=== PATIENT | female | born 1980 | race Caucasian/White ===

== ENCOUNTER 2016-11-16 08:00 | Inpatient (IN) | payer OTHER ==
[2016-11-16] VITALS (15 sets, daily range): BP systolic 105–147; BP diastolic 56–74
[~2016-11-16] VITALS: Ht 175.3 cm; Wt 130.0 kg
[~2016-11-16 08:00] MED LIST: /ACETCOD2T PO; /BUSP5TA; /QUET10TA; ACET50TA PO; ATARAX; ATIV0.5T; BACT800T5 PO; BUSP15TA47 PO; CALC600T57 PO; COLA100C PO; GLYB5TA PO; LATU1TAB PO; OMEP10CASR PO; PRED20TA PO; PRED50TA2 PO; PROZ20CA; QUET20XRTB; SERO150T PO; SEROQUEL; SEROQUEL XR PO; TOPI50TA; TRINTAB11; TRINTAB11 PO; ZYPR5TAB
[2016-11-16] MEDS ORDERED: LACTATED RINGER'S 1000 ML IV STA (08:41)
[2016-11-16] MEDS ORDERED: LR 1,000 ML IV SCH (08:41)
[2016-11-16] MEDS: PRENATAL VITAMIN TAB PO SCH (09:00)
[2016-11-16] MEDS: busPIRone 5 MG TAB PO SCH ×2 (09:00→20:36)
[2016-11-16] MEDS: DOCUSATE SODIUM 100 MG CAP PO SCH ×2 (09:00→20:36)
[2016-11-16] MEDS ORDERED: OXYTOCIN 30 UNITS IN 0.9% NaCl 500ML IV BAG (J2590) As Ordered ONE (09:08)
[2016-11-16 09:10] LABS: MEAN CORPUSCULAR HGB CONC 34.7 g/dl (32.0-36.5); MEAN CORPUSCULAR VOLUME 80.6 fl (80.0-96.0); RED CELL DISTRIBUTION WIDTH 13.9 % (11.5-14.5); WHITE BLOOD COUNT 20.3 K/mm3 (4.0-10.0)
[2016-11-16] MEDS ORDERED: OXYTOCIN DRIP 30 UNITS in APPROPRIATE DILUENT 1 EA IV SCH (09:15)
[2016-11-16] MEDS ORDERED: MEASLES,MUMPS,RUBELLA VACCINE INJ (MMR-II) (90707) SC SCH (09:15)
[2016-11-16] MEDS ORDERED: ANUSOL HC CREAM 30GM TOP PRN (09:15)
[2016-11-16] MEDS ORDERED: DIBUCAINE 1% OINTMENT 30GM TOP PRN (09:15)
[2016-11-16] MEDS ORDERED: RHOGAM 300 MCG (1500 IU) INJ (J2790) IM SCH (09:15)
[2016-11-16] MEDS ORDERED: METHYLERGONOVINE MALEATE 0.2 MG TAB PO PRN (09:15)
[2016-11-16 09:35] LABS: CORD GAS ABE V -5.4; CORD GAS HCO3 V 17.9 MEQ/L; CORD GAS O2 SAT V 74.7 %; CORD GAS PCO2 V 29.5 mmHg; CORD GAS PH V 7.4 UNITS; CORD GAS PO2 V 28.1 mmHg; CORD GAS SBC V 19.5 MEQ/L; CORD GAS TCO2 V 18.8 MEQ/L
[2016-11-16 10:01] LABS: ALBUMIN 2.8 GM/DL (3.2-5.2); ALBUMIN/GLOBULIN RATIO 0.78 (1.00-1.93); ALKALINE PHOSPHATASE 185 U/L (45-117); ALT/SGPT 15 U/L (12-78); ANION GAP 16 MEQ/L (8-16); AST/SGOT 13 U/L (15-37); BILIRUBIN,TOTAL 0.3 MG/DL (0.2-1.0); BLOOD UREA NITROGEN 13 MG/DL (7-18); CARBON DIOXIDE LEVEL 16 MEQ/L (21-32); CHLORIDE LEVEL 106 MEQ/L (98-107); CREATININE FOR GFR 0.79 MG/DL (0.55-1.02); GLOMERULAR FILTRATION RATE > 60.0 (>60); GLUCOSE, FASTING 151 MG/DL (70-105); POTASSIUM SERUM 3.7 MEQ/L (3.5-5.1); SODIUM LEVEL 138 MEQ/L (136-145); TOTAL PROTEIN 6.4 GM/DL (6.4-8.2)
[2016-11-16] MEDS ORDERED: RANI150T PO (12:03)
[2016-11-16] MEDS ORDERED: LATU40TA PO (12:03)
[2016-11-16] MEDS ORDERED: BUSP10TA PO (12:03)
[2016-11-16] MEDS ORDERED: FIBE625T15 PO (12:05)
[2016-11-16] MEDS: glyBURIDE 5 MG TAB PO SCH (14:54)
[2016-11-16] MEDS: IBUPROFEN 800 MG TAB PO PRN (16:59)
--- NOTE | 2016-11-16 17:51 | HPE ---
DATE OF ADMISSION: 11/16/2016 Nina is a 36-year-old female 2, para 1-0-0-1 with an estimated date of confinement (EDC) of 11/28/2016 by a first trimester ultrasound, approximately 38-2/7 weeks gestation who presented to labor and delivery with complaints of contractions every 3-5 minutes. Upon evaluation in labor and delivery, she was found to be in active labor. The patient was 8-9 cm, 100%, fetus at 0 station with a bulging membrane. The patient does have a history of gestational diabetes, currently on glyburide. She does also have a history of bipolar disorder for which she is being seen by Dr. Bolivar, on two antipsychotic medications. Her records reviewed, other than her gestational diabetes essentially unremarkable. The patient is advanced maternal age. LABORATORY DATA: Blood type is A+, rubella immune, hepatitis negative, HIV negative, GC and chlamydia negative. Her GBS was positive. Genetic screening test negative. The patient is a gestational diabetic on glyburide, well-controlled. PAST MEDICAL HISTORY: Significant for bipolar disorder. PAST SURGICAL HISTORY: Loop electrical excision procedure (LEEP) procedure in 2007. SOCIAL HISTORY: The patient is a smoker. She decreased her smoking during this . She denies any alcohol or drug use. REVIEW OF SYSTEMS: Unremarkable. MEDICATIONS: Consist of the BuSpar, Latuda, and vitamins. ALLERGIES: PHENOBARBITAL, QUESTIONABLE PENICILLIN ALLERGY, the patient does not remember any reaction but states that her mother is allergic to penicillin and also a maternal aunt. PHYSICAL EXAMINATION: Obese female in no acute distress, obese, gravid, nontender, nondistended. EXTREMITIES: No clubbing, cyanosis or edema. VAGINAL EXAMINATION: 8-9 cm, 100% effaced, 0 station with bulging membrane, fetus in vertex position. Tracing reviewed, category 1 tracing with contractions every 3-4 minutes. ASSESSMENT: 1. Intrauterine at 38-2/7 weeks gestation in active labor. 2. Group B Streptococcus (GBS) positive. 3. Gestational diabetes, on glyburide. 3. Multiple psychiatric illness, currently under control with medications. PLAN: Admit the patient to labor and delivery. Routine laboratories sent. Penicillin discussed for her group B Streptococcus (GBS) prophylaxis. However, given the rapid nature of her labor, it is doubtful that she will have time to get the antibiotic for her GBS. She will be admitted. Anticipate delivery.
--- NOTE | 2016-11-16 17:52 | DN ---
DATE: 11/16/2016 Nina is a 36-year-old female 2, para 1-0-0-1 who was admitted at 38-2/7 weeks gestation in active labor. She progressed to fully dilated quickly, had artificial rupture of membrane, and soon delivered a live male in left occiput anterior position over an intact perineum. scores 8 and 8. weight 9 pounds, 1 ounce. Placenta delivered spontaneously intact, three-vessel cord. Perineum, vagina and cervix inspected. No laceration noted. Estimated blood loss 300 mL. Both mother and baby in stable condition.
[2016-11-16] MEDS: ACETAMINOPHEN 500 MG TAB PO PRN (21:01)
[2016-11-17 05:34] VITALS: BP 101/62
[2016-11-17] MEDS: IBUPROFEN 800 MG TAB PO PRN ×2 (06:27→19:52)
[2016-11-17 06:58] LABS: MEAN CORPUSCULAR HEMOGLOBIN 27.9 pg (27.0-33.0); MEAN CORPUSCULAR HGB CONC 33.8 g/dl (32.0-36.5); MEAN CORPUSCULAR VOLUME 82.7 fl (80.0-96.0); RED CELL DISTRIBUTION WIDTH 14.6 % (11.5-14.5); WHITE BLOOD COUNT 17.6 K/mm3 (4.0-10.0)
[2016-11-17] MEDS: PRENATAL VITAMIN TAB PO SCH (07:59)
[2016-11-17] MEDS: DOCUSATE SODIUM 100 MG CAP PO SCH ×2 (08:00→21:05)
[2016-11-17] MEDS: glyBURIDE 5 MG TAB PO SCH ×2 (08:00→19:17)
[2016-11-17] MEDS: busPIRone 5 MG TAB PO SCH ×2 (08:00→21:05)
[2016-11-17] MEDS ORDERED: LURASIDONE HCL 40 MG TAB (LATUDA) PO SCH (08:00)
[2016-11-17 18:05] VITALS: BP 139/79
[2016-11-18] MEDS: ACETAMINOPHEN 500 MG TAB PO PRN (03:39)
[2016-11-18 04:31] VITALS: BP 117/71
[2016-11-18 05:56] VITALS: BP 114/64
[2016-11-18] MEDS: DOCUSATE SODIUM 100 MG CAP PO SCH (07:48)
[2016-11-18] MEDS: busPIRone 5 MG TAB PO SCH (07:48)
[2016-11-18] MEDS: PRENATAL VITAMIN TAB PO SCH (07:48)
[2016-11-18] MEDS ORDERED: PRENTAB9 PO (10:19)
[2016-11-18] MEDS ORDERED: IBUP-1114 PO (10:19)
[2016-11-18] MEDS ORDERED: ACET50TA PO (10:19)
== END 2016-11-18 13:15 | disposition home or self-care (01) | DRG 560 ==
LOC: M LDO 08:00 → M LDI 08:20 → M OBS 13:13
PROVIDERS: ADMIT Obstetrics & Gynecology; ATTEND Obstetrics & Gynecology
PROC: 10E0XZZ Delivery of Products of Conception, External Approach (ICD-10-PCS; principal; 2016-11-16)
PROC: 10907ZC Drainage of Amniotic Fluid, Therapeutic from Products of Conception, Via Natural or Artificial Opening (ICD-10-PCS; 2016-11-16)
DX: O24.415 Gestational diabetes mellitus in pregnancy, controlled by oral hypoglycemic drugs (principal); O99.344 Other mental disorders complicating childbirth; F31.9 Bipolar disorder, unspecified; Z37.0 Single live birth; Z3A.38 38 weeks gestation of pregnancy; F17.200 Nicotine dependence, unspecified, uncomplicated; O99.334 Smoking (tobacco) complicating childbirth; O99.824 Streptococcus B carrier state complicating childbirth; Z79.84 Long term (current) use of oral hypoglycemic drugs; Z88.0 Allergy status to penicillin; Z88.8 Allergy status to other drugs, medicaments and biological substances; Z79.899 Other long term (current) drug therapy

== ENCOUNTER 2016-11-23 21:55 | Inpatient (IN) | payer MEDICAID, OTHER ==
[~2016-11-23] VITALS: Ht 175.3 cm; Wt 130.3 kg
[~2016-11-23 21:55] MED LIST changes: +BUSP10TA PO; +FIBE625T15 PO; +IBUP-1114 PO; +LATU40TA PO; +PRENTAB9 PO; +RANI150T PO
[2016-11-23 22:38] LABS: MEAN CORPUSCULAR HGB CONC 34.6 g/dl (32.0-36.5); MEAN CORPUSCULAR VOLUME 83.8 fl (80.0-96.0); RED CELL DISTRIBUTION WIDTH 13.9 % (11.5-14.5); WHITE BLOOD COUNT 13.8 K/mm3 (4.0-10.0)
[2016-11-23 22:53] LABS: CONTROL LINE HCG INT CTR LINE PRESENT
[2016-11-23 23:00] LABS: AMPHETAMINES LEVEL URINE NEGATIVE (NEGATIVE); BENZODIAZEPINES URINE NEGATIVE (NEGATIVE); COCAINE METABOLITE URINE NEGATIVE (NEGATIVE); CONTROL LINE INT CTR LINE PRESENT; METHADONE URINE NEGATIVE (NEGATIVE); OPIATES URINE NEGATIVE (NEGATIVE); TRICYCLIC ANTIDEPRESS URINE NEGATIVE (NEGATIVE)
[2016-11-23 23:09] LABS: ALBUMIN 3.1 GM/DL (3.2-5.2); ALKALINE PHOSPHATASE 121 U/L (45-117); ALT/SGPT 31 U/L (12-78); ANION GAP 9 MEQ/L (8-16); AST/SGOT 22 U/L (15-37); BILIRUBIN,DIRECT < 0.1 MG/DL (0.0-0.2); BILIRUBIN,TOTAL 0.2 MG/DL (0.2-1.0); BLOOD UREA NITROGEN 19 MG/DL (7-18); CALCIUM LEVEL 9.4 MG/DL (8.5-10.1); CARBON DIOXIDE LEVEL 27 MEQ/L (21-32); CHLORIDE LEVEL 108 MEQ/L (98-107); CREATININE FOR GFR 0.76 MG/DL (0.55-1.02); GLOMERULAR FILTRATION RATE > 60.0 (>60); GLUCOSE, FASTING 93 MG/DL (70-105); POTASSIUM SERUM 3.7 MEQ/L (3.5-5.1); SODIUM LEVEL 144 MEQ/L (136-145); TOTAL PROTEIN 6.2 GM/DL (6.4-8.2)
[2016-11-23] MEDS ORDERED: LORazepam 1 MG TAB As Ordered ONE (23:22)
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
--- NOTE | 2016-11-24 00:01 | EDDOCDS ---
Physician Documentation [facility] Name: Nina Bartlett Age: 36 yrs Sex: Female : 1980 Arrival Date: 11/23/2016 Time: 21:55 Bed BHU1 Private MD: Marcos Huston Disposition: 11/23/16 23:42 Hospitalization ordered by Sami Echeverria for Inpatient Admission. Preliminary diagnosis is Bipolar disorder, current episode manic severe with psychotic features. - Bed requested for Admit. - Status is Inpatient Admission. slm - Condition is Stable. - Problem is new. - Symptoms are unchanged. Historical: - Allergies: PENICILLINS; Percocet; Phenobarbital; Latex; - Home Meds: 1. BuSpar 15 mg Oral tab 1 tab 2 times per day 2. Latuda 60 mg oral tab 3. trazodone 50 mg Oral tab nightly - PMHx: Anxiety; Bipolar disorder; Depression; - PSHx: LEEP Procedure; - Social history: Smoking status: Patient uses tobacco products, heavy tobacco smoker. No barriers to communication noted. - Family history: Not pertinent. - : The pt / caregiver states he / she is not on anticoagulants. Home medication list is obtained from the patient. - Exposure Risk Screening:: None identified. 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 9 in. (175.26 cm) (R); 23:17 BP 147 / 78; Pulse 90; Resp 18; Pulse Ox 100% on R/A; jlm 21:56 Body Mass Index 43.42 (133.36 kg, 175.26 cm) ct3 MDM: 22:10 Consult PFS/PSA/Complaint Specialist ordered. br1 22:10 Consult PFS/PSA/Complaint Specialist: Patient's case requires discussion with on-call br1 Psychiatrist ordered. 22:10 PSA/PFS to call Nursing It Admin, to enter patient data on [place] Safe Act if patient br1 involuntarily admitted or transferred for SI or HI ordered. 22:10 Confirm accurate psychiatric medication list and times of last dosage ordered. br1 22:10 Detain Pt Until Medically/PFS Cleared ordered. br1 22:10 Acetaminophen Level Ordered. EDMS 22:10 Basic Metabolic Profile Ordered. EDMS 22:10 Complete Blood Count Ordered. EDMS 22:10 Drug Eval Toxicology ED Only Ordered. EDMS 22:10 Ethyl Alcohol (ethanol) Ordered. EDMS 22:10 HCG,Serum Qualitative Ordered. EDMS 22:10 Liver Profile Ordered. EDMS 22:10 Salicylate Level Ordered. EDMS 22:10 Thyroid Stimulating Hormone Ordered. EDMS 22:33 Financial registration complete. zo 22:35 [facility] [place] Agreement was scanned into [employer]: [employer] and attached to record. zo 22:41 Complete Blood Count Reviewed. br1 22:59 HCG,Serum Qualitative Reviewed. br1 23:08 Drug Eval Toxicology ED Only Reviewed. br1 23:10 Acetaminophen Level Reviewed. br1 23:10 Basic Metabolic Profile Reviewed. br1 23:10 HCG,Serum Qualitative Reviewed. br1 23:10 Liver Profile Reviewed. br1 23:10 Salicylate Level Reviewed. br1 23:10 Ethyl Alcohol (ethanol) Reviewed. br1 23:10 Thyroid Stimulating Hormone Reviewed. br1 23:18 Consult PFS/PSA/Complaint Specialist complete. cl 23:18 Consult PFS/PSA/Complaint Specialist: Patient's case requires discussion with on-call cl Psychiatrist complete. 23:18 PSA/PFS to call Nursing It Admin, to enter patient data [place] Safe [place] if patient cl involuntarily admitted or transferred for SI or HI complete. 23:18 [facility] ordered. br1 23:20 LORazepam 1 mg PO once; prn anxiety ordered. br1 23:21 Consult PFS/PSA/Socail Worker: Cleared medically for eval ordered. br1 23:23 Consult PFS/PSA/Socail Worker: Cleared medically for eval complete. cl 23:51 Admit to IM: ordered. EDMS 23:51 [facility] Legal paperwork was scanned into [employer]: [employer] and attached to record. cl Administered Medications: 23:32 Drug: LORazepam 1 mg [lorazepam 1 mg tablet (1 tabs)] Route: PO; slm Signatures: Dispatcher [employer] EDMS Adam Saini, PSA PSA cl Wilfrido Young Brian, MD MD br1 Jami Oakley RN RN [facility] Rosa M Ramires LPN LPN slm The chart was reviewed and I authenticate all verbal orders and agree with the evaluation and treatment provided.Attachments: 22:35 [facility] Payment Agreement zo MTDD
[2016-11-24] MEDS ORDERED: MOM 30ML SUSPENSION UDC PO PRN (00:45)
[2016-11-24] MEDS ORDERED: MAALOX 30 ML SUSP *UDC PO PRN (00:45)
[2016-11-24 01:41] VITALS: BP 151/94
[2016-11-24 06:32] VITALS: BP 117/55
[2016-11-24] MEDS ORDERED: BUSP15TA47 PO (06:58)
[2016-11-24] MEDS ORDERED: FIBE625T PO (06:58)
[2016-11-24] MEDS ORDERED: LATU1TAB PO (06:58)
[2016-11-24] MEDS ORDERED: ALEV220T26 PO (06:58)
[2016-11-24] MEDS ORDERED: CALC1TAB30 PO (06:58)
[2016-11-24] MEDS: LORazepam 1 MG TAB PO PRN ×3 (08:26→20:36)
[2016-11-24] MEDS ORDERED: TRAZ50TA4 PO (09:01)
[2016-11-24] MEDS ORDERED: RANI150T PO (09:02)
[2016-11-24] MEDS ORDERED: BUSP10TA PO (09:03)
--- NOTE | 2016-11-24 11:28 | HPEPDOC ---
Medical History and Physical Date of Admission Nov 24, 2016 at 00:05 History and Physical PCP: Marcos Huston NP. ATTENDING: Dr. Omer Ignacio HPI: 36yoF admitted to [facility] for Bipolar disorder, being medically examined today. Patient is reporting a rash on her hands bilaterally which has developed over the past few days. She states she noticed irritation in her hands therefore she applied Nuskin. She states this was not helpful and the area is still irritated and subsequently the covering began to crack. She does state that she washes her hands frequently and had been applying hand cq developer frequently as well. After this her hands developed a rash, they began to feel dry and become red and inflamed. She also complains of low back pain this is occurring across her low back and has been very tender to touch. It is not radiating down her lower stomach remedies. She does not report weakness, numbness, or tingling in lower extremities. No loss of bowel or bladder control. She is reporting some right hip pain. She has been ambulating without any difficulty. No assistive devices. She has not been using anything specific for pain. She lies down to rest. Activity seems to make the pain worse. She does not report neck pain. No weakness, numbness, or tingling in upper extremities. She states she typically does use Aleve at home for back pain, knee pain, or hip pain which occurs sporadically. Denies any fevers, chills, weakness, fatigue, JAY, CP, SOB, cough, palpitations , abdominal pain, N/V/D or changes in bowel or bladder habits. PMHx: Bipolar disorder Anxiety Depression History of back pain Knee pain Hip pain Chronic varicose veins/lower extremity edema Obesity-BMI 43.4 Tobacco use PSHX: LEEP procedure Eye surgery as child SOCHX: Resides in: [place] Marital Status: Single Kids: 2, 1 stepchild Employment: Unemployed Tobacco use: One pack per day ETOH: Denies Illicit Drugs: Marijuana once yearly IV Drug Use: Denies Tattoos done unprofessionally: Denies FAMHX: Mother: Alive, history of lung cancer Father: Alive, COPD Siblings: One brother Alive, unknown Children: Alive, well Unexpected deaths due to medical reasons: None. ROS: As noted in HPI, otherwise 11pt ROS of systems reviewed and remarkable only for LMP absent, recent of child 11/16/16. Patient states she is not breast- feeding. PE: GEN: 36 yoF, appears stated age. Well-nourished, well developed. No acute distress. Alert and oriented x 3. Patient becomes agitated at times and is reluctant to provide history. HEENT: Normocephalic, atraumatic. Pupils are equal, round, and reactive to light. Extraocular movements are intact. No nystagmus appreciated. Sclera are nonicteric. Conjunctiva without injection. Nose midline. Nasal turbinates without bogginess. EACs both patent BL. TMs both visualized and richter with good cone of light, no bulging or erythema. No facial asymmetry. Moist mucous membranes. Dentition fair. Pharynx pink and moist, no cobblestoning. Neck supple , trachea midline. No lymphadenopathy or thyromegaly appreciated. CHEST: Regular rate and rhythm, +S1, +S2 LUNGS: Clear to auscultation bilaterally. No wheezes, rales, or rhonchi. Breathing appears symmetric and easy. Patient is speaking in full sentences. No accessory muscle use. ABD: Round, soft, non-tender, non-distended. +Bowel sounds throughout. No rebound or guarding. No costovertebral angle tenderness. EXT: Pulses 2+ bilaterally dorsalis pedis and radial. trace lower extremity edema appreciated, varicose veins noted B/L. SKIN: [place], dry, warm. Capillary refill <2sec. No rashes. NEURO: Alert and oriented x 3. Cranial nerves III-XII are intact. No focal deficits appreciated. EKG: Pending. A&P: 36yoF admitted to [facility] for Bipolar disorder 1. Psych. Plan per Psychiatry. Obtain baseline EKG to assure the safety of psychiatric medications as they can prolong the QT interval. 2. Nicotine dependence. Patch available. 3. Chronic low back pain/right hip pain. Continue Tylenol as needed. Check x- ray of right hip and lumbosacral spine. 4. Follow up with PCP on discharge. Cyndee Huston NP. 5. Allergic dermatitis of the hands bilaterally. Likely related to frequent handwashing and application of hand cq developer. Avoid harsh soaps and sanitizers. Avoid picking of Nuskin which patient has applied to her skin. Wash hands with warm water and mild soap if needed. Apply triamcinolone cream twice a day. 6. Leukocytosis. Recheck CBC. Also check UA/UC. 7. Chronic venous insufficiency. Elevate legs as needed. 8. Obesity. Complicates care. BMI is noted to be 43.4. 9. Staff member was present throughout exam, Echo VEGA. Vital Signs Vital Signs Label Value Date Time Patient Temperature 97.2 degrees F 11/24/16 0632 Temperature Source Tympanic 11/24/16 0632 Pulse 71 11/24/16 0632 Respiratory Rate 19 bpm 11/24/16 0632 Blood Pressure Assessment 117/55 (75) 11/24/16 0632 Laboratory Data Labs 24H Laboratory Tests 2 11/23/16 22:25: Acetaminophen Level < 2.0L, Aspartate Amino Transf (AST/SGOT) 22, Alanine Aminotransferase (ALT/SGPT) 31, Alkaline Phosphatase 121H, Total Bilirubin 0.2, Direct Bilirubin < 0.1, Albumin 3.1L, Albumin/Globulin Ratio 1.00, Anion Gap 9, Calcium Level 9.4, Ethyl Alcohol Level < 0.003, Glomerular Filtration Rate > 60.0, Human Chorionic Gonadotropin, Qual POSITIVEA, Salicylates Level 3.3L, Thyroid Stimulating Hormone (TSH) 1.460, Total Protein 6.2L 11/23/16 22:29: Urine Amphetamine Level NEGATIVE, Urine Benzodiazepines Screen NEGATIVE, Urine Cannabinoids NEGATIVE, Urine Cocaine Metabolite NEGATIVE, Urine Opiates Screen NEGATIVE, Urine Barbiturates, Qualitative NEGATIVE, Urine Methadone Screen NEGATIVE, Urine Tricyclic Antidepressants NEGATIVE CBC/BMP Laboratory Tests 11/23/16 22:25 Red Blood Count 4.71, Mean Corpuscular Volume 83.8, Mean Corpuscular Hemoglobin 29.0, Mean Corpuscular Hemoglobin Concent 34.6, Red Cell Distribution Width 13.9 Home Medications Scheduled (Calcium 500+D 500-200 mg-Unit) 1 Tab Tab 1 TAB PO DAILY VITAMIN DEFICIENCY Buspirone HCl (Buspirone HCl) 10 Mg Tab 20 MG PO BID ANXIETY Calcium Polycarbophil (Fibercon) 625 Mg Tab 625 MG PO BID BOWEL CARE Lurasidone Hydrochloride (Latuda) 60 Mg Tab 60 MG PO DAILY BIPOLAR DISORDER Scheduled PRN Naproxen Sodium (Aleve) 220 Mg Tab 220 MG PO BID PRN PRN PAIN Ranitidine HCl (Ranitidine HCl) 150 Mg Tab 1 TAB PO BID PRN PRN HEARTBURN Trazodone HCl (Trazodone HCl) 50 Mg Tab 50 MG PO QHS PRN PRN INSOMNIA Allergies Coded Allergies: Acetaminophen (Verified Allergy, Unknown, 11/24/16) Latex (Verified Allergy, Unknown, 11/24/16) Oxycodone (Verified Allergy, Unknown, 11/24/16) Penicillins (Verified Allergy, Unknown, 02/18/13) Penicillins Cross Reactors (Verified Allergy, Unknown, 02/18/13) Phenobarbital (Verified Allergy, Unknown, 02/18/13) Procaine (Verified Allergy, Unknown, 11/16/16) Jennifer Garcia Nov 24, 2016 11:28
[2016-11-24 12:00] VITALS: BP 126/71
[2016-11-24] MEDS: TRIAMCINOLONE ACETONIDE 0.025 % 80 GM CREAM TOP SCH ×2 (12:39→20:37)
--- NOTE | 2016-11-24 17:28 | ECGEPIP ---
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
[2016-11-24] MEDS ORDERED: LURASIDONE HCL 40 MG TAB (LATUDA) PO SCH ×5 (18:00→21:00)
[2016-11-24] MEDS: LURASIDONE 20 MG TAB (LATUDA) PO SCH (18:25)
[2016-11-24] MEDS: busPIRone 5 MG TAB PO SCH (20:36)
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
[2016-11-24] MEDS: traZODone 50 MG TAB PO PRN (23:04)
[2016-11-25 06:16] VITALS: BP 128/77
[2016-11-25 06:58] LABS: MEAN CORPUSCULAR HEMOGLOBIN 27.9 pg (27.0-33.0); MEAN CORPUSCULAR HGB CONC 33.1 g/dl (32.0-36.5); MEAN CORPUSCULAR VOLUME 84.2 fl (80.0-96.0); RED CELL DISTRIBUTION WIDTH 13.7 % (11.5-14.5); WHITE BLOOD COUNT 10.9 K/mm3 (4.0-10.0)
[2016-11-25] MEDS: busPIRone 5 MG TAB PO SCH ×2 (08:07→21:56)
[2016-11-25] MEDS: TRIAMCINOLONE ACETONIDE 0.025 % 80 GM CREAM TOP SCH ×2 (08:07→21:56)
[2016-11-25] MEDS: NICOTINE 14 MG/24 HR TRANSDERMAL TD SCH (08:08)
[2016-11-25] MEDS: LORazepam 1 MG TAB PO PRN ×2 (10:32→19:03)
--- NOTE | 2016-11-25 12:19 | IPN ---
DATE OF SERVICE: 11/25/2016 TREATMENT: This is the second day of inpatient admission for this 36-year-old woman who was admitted with a diagnosis of unspecified bipolar disorder and is being treated with a combination of lurasidone 60 mg orally at bedtime and BuSpar 15 mg orally twice daily. She reports today that while speaking with her on the telephone she had heard her 8-days-old baby crying in the background and since that time, she has been depressed and feels frustrated being in here. She expresses the wish to have the baby brought here so she can hold and hug the baby. She indicates she will have a hard time adjusting to current setting knowing that her is at home without her. No reported medication side effects. OBSERVATION: Vital signs: Blood pressure 128/77, pulse 107, respiration 20, and temperature 97.6. She is adequately groomed, dressed in [facility]. Relates conversationally. No medication related adverse event evident. Thought process is coherent. No delusions or ideas of reference. She denies hallucination. Her mood is depressed. Affect teary. She denies active thoughts of suicide or homicide. ASSESSMENT: Patient is currently experiencing maternal mood symptomatology and will require for inpatient stabilization. PLAN: She will continue on current treatment with ongoing reviews and supportive therapy. FUAD
[2016-11-25] MEDS: ACETAMINOPHEN TAB 650MG DOSE (2X325MG) PO PRN ×2 (13:27→23:38)
[2016-11-25 18:00] VITALS: BP 135/85
[2016-11-25] MEDS: LURASIDONE 20 MG TAB (LATUDA) PO SCH (18:12)
[2016-11-25] MEDS: traZODone 50 MG TAB PO PRN (21:56)
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
--- NOTE | 2016-11-26 01:01 | EDDOCDS ---
Physician Documentation [facility] Name: Nina Bartlett Age: 36 yrs Sex: Female : 1980 Arrival Date: 11/23/2016 Time: 21:55 Bed [facility]1 Private MD: Marcos Huston Disposition: 11/23/16 23:42 Hospitalization ordered by Sami Echeverria for Inpatient Admission. Preliminary diagnosis is Bipolar disorder, current episode manic severe with psychotic features. - Bed requested for Admit. - Status is Inpatient Admission. slm - Condition is Stable. - Problem is new. - Symptoms are unchanged. Historical: - Allergies: PENICILLINS; Percocet; Phenobarbital; Latex; - Home Meds: 1. BuSpar 15 mg Oral tab 1 tab 2 times per day 2. Latuda 60 mg oral tab 3. trazodone 50 mg Oral tab nightly - PMHx: Anxiety; Bipolar disorder; Depression; - PSHx: LEEP Procedure; - Social history: Smoking status: Patient uses tobacco products, heavy tobacco smoker. No barriers to communication noted. - Family history: Not pertinent. - : The pt / caregiver states he / she is not on anticoagulants. Home medication list is obtained from the patient. - Exposure Risk Screening:: None identified. 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 9 in. (175.26 cm) (R); 23:17 BP 147 / 78; Pulse 90; Resp 18; Pulse Ox 100% on R/A; jlm 21:56 Body Mass Index 43.42 (133.36 kg, 175.26 cm) ct3 MDM: 22:10 Consult PFS/PSA/Books Salesperson ordered. br1 22:10 Consult PFS/PSA/Books Salesperson: Patient's case requires discussion with on-call br1 Psychiatrist ordered. 22:10 PSA/PFS to call Nursing Animal Eviscerator, to enter patient data on [place] Safe Act if patient br1 involuntarily admitted or transferred for SI or HI ordered. 22:10 Confirm accurate psychiatric medication list and times of last dosage ordered. br1 22:10 Detain Pt Until Medically/PFS Cleared ordered. br1 22:10 Acetaminophen Level Ordered. EDMS 22:10 Basic Metabolic Profile Ordered. EDMS 22:10 Complete Blood Count Ordered. EDMS 22:10 Drug Eval Toxicology ED Only Ordered. EDMS 22:10 Ethyl Alcohol (ethanol) Ordered. EDMS 22:10 HCG,Serum Qualitative Ordered. EDMS 22:10 Liver Profile Ordered. EDMS 22:10 Salicylate Level Ordered. EDMS 22:10 Thyroid Stimulating Hormone Ordered. EDMS 22:33 Financial registration complete. zo 22:35 [facility] Payment Agreement was scanned into Yoomly and attached to record. zo 22:41 Complete Blood Count Reviewed. br1 22:59 HCG,Serum Qualitative Reviewed. br1 23:08 Drug Eval Toxicology ED Only Reviewed. br1 23:10 Acetaminophen Level Reviewed. br1 23:10 Basic Metabolic Profile Reviewed. br1 23:10 HCG,Serum Qualitative Reviewed. br1 23:10 Liver Profile Reviewed. br1 23:10 Salicylate Level Reviewed. br1 23:10 Ethyl Alcohol (ethanol) Reviewed. br1 23:10 Thyroid Stimulating Hormone Reviewed. br1 23:18 Consult PFS/PSA/Books Salesperson complete. cl 23:18 Consult PFS/PSA/Books Salesperson: Patient's case requires discussion with on-call cl Psychiatrist complete. 23:18 PSA/PFS to call Nursing Animal Eviscerator, to enter patient data [place] Safe [place] if patient cl involuntarily admitted or transferred for SI or HI complete. 23:18 [facility] Nursing Order ordered. br1 23:20 LORazepam 1 mg PO once; prn anxiety ordered. br1 23:21 Consult PFS/PSA/Socail Worker: Cleared medically for eval ordered. br1 23:23 Consult PFS/PSA/Socail Worker: Cleared medically for eval complete. cl 23:51 Admit to IM: ordered. EDMS 23:51 [facility] Legal paperwork was scanned into Yoomly and attached to record. cl 11/24 11:08 T-Sheet-- Draft Copy was scanned into Yoomly and attached to record. gb Administered Medications: 11/23 23:32 Drug: LORazepam 1 mg [lorazepam 1 mg tablet (1 tabs)] Route: PO; slm Signatures: Dispatcher [employer] EDMS Adam Saini, PSA PSA cl Yaquelin Virk, Reg Reg gb Wilfrido Young Brian, MD MD br1 Jami Oakley RN RN [facility] Rosa M Ramires LPN LPN slm The chart was reviewed and I authenticate all verbal orders and agree with the evaluation and treatment provided.Attachments: 22:35 [facility] Payment Agreement zo 11/24 11:08 T-Sheet-- Draft Copy gb Chart Complete MTDD
--- NOTE | 2016-11-26 01:01 | EDDOCDS ---
Physician Documentation [facility] Name: Nina Bartlett Age: 36 yrs Sex: Female : 1980 Arrival Date: 11/23/2016 Time: 21:55 Bed BHU1 Private MD: Marcos Huston Disposition: 11/23/16 23:42 Hospitalization ordered by Sami Echeverria for Inpatient Admission. Preliminary diagnosis is Bipolar disorder, current episode manic severe with psychotic features. - Bed requested for Admit. - Status is Inpatient Admission. slm - Condition is Stable. - Problem is new. - Symptoms are unchanged. Historical: - Allergies: PENICILLINS; Percocet; Phenobarbital; Latex; - Home Meds: 1. BuSpar 15 mg Oral tab 1 tab 2 times per day 2. Latuda 60 mg oral tab 3. trazodone 50 mg Oral tab nightly - PMHx: Anxiety; Bipolar disorder; Depression; - PSHx: LEEP Procedure; - Social history: Smoking status: Patient uses tobacco products, heavy tobacco smoker. No barriers to communication noted. - Family history: Not pertinent. - : The pt / caregiver states he / she is not on anticoagulants. Home medication list is obtained from the patient. - Exposure Risk Screening:: None identified. HOSIERY MENDER: 11/23 22:14 LMP N/A - Recent [facility] Vital Signs: 21:56 BP 152 / 95; Pulse 112; Resp 18; Temp 98.1; Pulse Ox 98% on R/A; Weight 133.36 kg / ct3 294.01 lbs (R); Height 5 ft. 9 in. (175.26 cm) (R); 23:17 BP 147 / 78; Pulse 90; Resp 18; Pulse Ox 100% on R/A; jlm 21:56 Body Mass Index 43.42 (133.36 kg, 175.26 cm) ct3 MDM: 22:10 Consult PFS/PSA/Aviation Electrical Technician ordered. br1 22:10 Consult PFS/PSA/Aviation Electrical Technician: Patient's case requires discussion with on-call br1 Psychiatrist ordered. 22:10 PSA/PFS to call Nursing Build And Release Manager, to enter patient data on [place] Safe Act if patient br1 involuntarily admitted or transferred for SI or HI ordered. 22:10 Confirm accurate psychiatric medication list and times of last dosage ordered. br1 22:10 Detain Pt Until Medically/PFS Cleared ordered. br1 22:10 Acetaminophen Level Ordered. EDMS 22:10 Basic Metabolic Profile Ordered. EDMS 22:10 Complete Blood Count Ordered. EDMS 22:10 Drug Eval Toxicology ED Only Ordered. EDMS 22:10 Ethyl Alcohol (ethanol) Ordered. EDMS 22:10 HCG,Serum Qualitative Ordered. EDMS 22:10 Liver Profile Ordered. EDMS 22:10 Salicylate Level Ordered. EDMS 22:10 Thyroid Stimulating Hormone Ordered. EDMS 22:33 Financial registration complete. zo 22:35 [facility] Payment Agreement was scanned into [employer] and attached to record. zo 22:41 Complete Blood Count Reviewed. br1 22:59 HCG,Serum Qualitative Reviewed. br1 23:08 Drug Eval Toxicology ED Only Reviewed. br1 23:10 Acetaminophen Level Reviewed. br1 23:10 Basic Metabolic Profile Reviewed. br1 23:10 HCG,Serum Qualitative Reviewed. br1 23:10 Liver Profile Reviewed. br1 23:10 Salicylate Level Reviewed. br1 23:10 Ethyl Alcohol (ethanol) Reviewed. br1 23:10 Thyroid Stimulating Hormone Reviewed. br1 23:18 Consult PFS/PSA/Aviation Electrical Technician complete. cl 23:18 Consult PFS/PSA/Aviation Electrical Technician: Patient's case requires discussion with on-call cl Psychiatrist complete. 23:18 PSA/PFS to call Nursing Build And Release Manager, to enter patient data on [place] Safe [place] if patient cl involuntarily admitted or transferred for SI or HI complete. 23:18 [facility] [place]. br1 23:20 LORazepam 1 mg PO once; prn anxiety ordered. br1 23:21 Consult PFS/PSA/Socail Worker: Cleared medically for eval ordered. br1 23:23 Consult PFS/PSA/Socail Worker: Cleared medically for eval complete. cl 23:51 Admit to IM: ordered. EDMS 23:51 [facility] Legal paperwork was scanned into [employer] and attached to record. cl 11/24 11:08 T-Sheet-- Draft Copy was scanned into [employer] and attached to record. gb Administered Medications: 11/23 23:32 Drug: LORazepam 1 mg [lorazepam 1 mg tablet (1 tabs)] Route: PO; slm Signatures: Dispatcher [employer] EDMS Adam Saini, PSA PSA cl Yaquelin Virk, Reg Reg gb Wilfrido Young Brian, MD MD br1 Jami Oakley RN RN [facility] Rosa M Ramires LPN LPN slm The chart was reviewed and I authenticate all verbal orders and agree with the evaluation and treatment provided.Attachments: 22:35 [facility] Payment Agreement zo 11/24 11:08 T-Sheet-- Draft Copy gb Chart Complete MTDD
[2016-11-26 06:08] VITALS: BP 131/83
[2016-11-26] MEDS: ACETAMINOPHEN TAB 650MG DOSE (2X325MG) PO PRN ×2 (08:05→15:46)
[2016-11-26] MEDS: busPIRone 5 MG TAB PO SCH ×2 (08:06→20:30)
[2016-11-26] MEDS: TRIAMCINOLONE ACETONIDE 0.025 % 80 GM CREAM TOP SCH ×2 (08:06→20:30)
[2016-11-26] MEDS: NICOTINE 14 MG/24 HR TRANSDERMAL TD SCH (08:06)
[2016-11-26] MEDS: LORazepam 1 MG TAB PO PRN ×2 (10:11→22:54)
--- NOTE | 2016-11-26 11:26 | IPN ---
DATE: 11/26/2016 TREATMENT: Day #3 of inpatient hospitalization. The patient is currently being prescribed lurasidone 60 mg orally at bedtime and BuSpar 50 mg orally twice daily for management of mood and manic and anxiety-related disturbances respectively. She has been taking her medication and no new problems reported today, except for bilateral pedal swelling. She already has been seen by the medical physician assistant case manager and compression stockings were ordered. OBSERVATION: Her vital signs are stable. She is calm, cooperative, appropriately dressed and groomed. Her speech is fluent. Thought process is coherent. No evidence of psychosis. Her mood is described as still depressed; however, she denies suicidal thoughts, plan or intent. ASSESSMENT: Patient is adjusting well to current setting; however, she continues to experience some depressive symptoms and will require further inpatient stabilization. PLAN: She will continue the current treatment with ongoing assessment and supportive therapy. FUAD
--- NOTE | 2016-11-26 11:37 | IPNPDOC ---
Date of Service/Time Nov 23, 2016 at 21:55 Progress Note SUBJECTIVE: 36yoF admitted to [facility] for Bipolar disorder, I was requested to evaluate the patient today related to lower extremity edema. She is known to have chronic venous insufficiency and varicose veins. She reports she sometimes uses FOSTER stockings at home but has been unable to use them here. She has had some discomfort in her right lower extremity. She has been trying to elevate her legs. She has not noted any erythema. She is also complaining of dental pain related to a chipped tooth on the left upper side. She states this has been worsening since the of her child. She had trouble with her teeth during her as well. She has an appointment with her dentist in approximately 1 week to have this addressed. She has been trying to get by until her dental appointment. It has been increasing in pain. The pain is throbbing. It is radiating up her left cheek. OBJECTIVE: GEN: 36 yoF, appears stated age. Well-nourished, well developed. No acute distress. Alert and oriented x 3. HEENT: Normocephalic, atraumatic. Pupils are equal, round, and reactive to light. Extraocular movements are intact. No nystagmus appreciated. Sclera are nonicteric. Conjunctiva without injection. Nose midline. Nasal turbinates without bogginess. EACs both patent BL. TMs both visualized and richter with good cone of light, no bulging or erythema. No facial asymmetry. Moist mucous membranes. Dentition: the left cuspid appears to have cracking posteriorly with erythema and tenderness with palpation noted. Pharynx pink and moist, no cobblestoning. Neck supple, trachea midline. No lymphadenopathy or thyromegaly appreciated. CHEST: Regular rate and rhythm, +S1, +S2 LUNGS: Clear to auscultation bilaterally. No wheezes, rales, or rhonchi. Breathing appears symmetric and easy. Patient is speaking in full sentences. No accessory muscle use. ABD: Round, soft, non-tender, non-distended. +Bowel sounds throughout. No rebound or guarding. No costovertebral angle tenderness. EXT: Pulses 2+ bilaterally dorsalis pedis and radial. trace lower extremity edema appreciated, varicose veins noted B/L. There is mild TTP RLE calf area but no cording, neg Homans, no erythema. No TTP LLE, no calf TTP, No cording, neg Irma's. SKIN: [place], dry, warm. Capillary refill <2sec. No rashes. NEURO: Alert and oriented x 3. Cranial nerves III-XII are intact. No focal deficits appreciated. DVT prophylaxis ordered: Ambulatory ASSESSMENT AND PLAN: 36yoF admitted to [facility] for Bipolar disorder. PROBLEMS: 36yoF admitted to [facility] for Bipolar disorder 1. Psych. Plan per Psychiatry. EKG on file. 2. Nicotine dependence. Patch available. 3. Chronic low back pain/right hip pain. Continue Tylenol as needed. Naproxen 250 mg twice a day as needed. She states this works the best for her pain. X- ray of right hip and lumbosacral spine previously requested was canceled. 4. Follow up with PCP on discharge. Cyndee Huston NP. 5. Allergic dermatitis of the hands bilaterally. Likely related to frequent handwashing and application of hand exhibit artist prior to admission. Continue to avoid harsh soaps and sanitizers. Avoid picking of [place] which patient has applied to her skin. Wash hands with warm water and mild soap if needed. Apply triamcinolone cream twice a day. This is improving. 6. Chronic venous insufficiency. Elevate legs as needed. Apply TEDS to lower extremities. Low-sodium diet. Check ultrasound of lower extremities. 7. Obesity. Complicates care. BMI is noted to be 43.4. 8. Dental pain/Dental infection. Patient with penicillin allergy. Continue Tylenol as needed. Naproxen 250 mg twice a day as needed. Add clindamycin 300 mg every 8 hours. Keep appointment for follow-up with her dentist at discharge. DISPOSITION: As per psychiatry. VS, I&O, 24H, Fishbone VS, I&O, 24H, Fishbone Vital Signs Date Time Temp Pulse Resp B/P Pulse Ox O2 Delivery O2 Flow Rate FiO2 11/26/16 06:08 96.1 101 20 131/83 Jennifer Garcia Nov 26, 2016 11:36
--- NOTE | 2016-11-26 12:58 | REP ---
Duplex extremity venous ultrasound: Bilateral lower extremity. History: Bilateral lower extremity edema and pain. Findings: The deep veins are anechoic and fully compressible from the groin to the popliteal fossa in the right and left lower extremity. Color flow imaging is homogeneous. Spectral Doppler interrogation demonstrates intact respiratory variation in flow and normal manual augmentation of flow. There is no evidence of deep vein thrombosis. Incidental note is made of bilateral large greater saphenous veins with evidence of bilateral greater saphenous vein reflux. Recommend consideration of a lower extremity reflux sonogram. Impression: Incidental note is made of reflux and prominent size greater saphenous veins bilaterally. Consider reflux study. Otherwise negative bilateral lower extremity duplex venous ultrasound. No evidence of deep vein thrombosis. Signed by Gary Monterroso MD 11/26/2016 12:50 P
[2016-11-26] MEDS: CLINDAMYCIN 150 MG CAP PO SCH ×2 (13:27→20:31)
[2016-11-26] MEDS: NAPROXEN 250 MG TAB PO PRN (13:29)
[2016-11-26] MEDS: LURASIDONE 20 MG TAB (LATUDA) PO SCH (17:51)
[2016-11-26 18:00] VITALS: BP 134/75
[2016-11-27] MEDS: traZODone 50 MG TAB PO PRN (02:01)
[2016-11-27] MEDS: LORazepam 1 MG TAB PO PRN ×3 (02:58→23:01)
[2016-11-27 06:02] VITALS: BP 143/87
[2016-11-27] MEDS: CLINDAMYCIN 150 MG CAP PO SCH ×3 (06:05→21:36)
[2016-11-27] MEDS: NICOTINE 14 MG/24 HR TRANSDERMAL TD SCH (08:09)
[2016-11-27] MEDS: TRIAMCINOLONE ACETONIDE 0.025 % 80 GM CREAM TOP SCH ×2 (08:09→21:36)
[2016-11-27] MEDS: busPIRone 5 MG TAB PO SCH ×2 (08:09→21:37)
[2016-11-27 18:00] VITALS: BP 137/75
[2016-11-27] MEDS: LURASIDONE HCL 40 MG TAB (LATUDA) PO SCH (18:10)
[2016-11-28] MEDS: traZODone 50 MG TAB PO PRN ×2 (01:17→21:45)
[2016-11-28] MEDS: NAPROXEN 250 MG TAB PO PRN ×2 (03:55→22:45)
[2016-11-28] MEDS: CLINDAMYCIN 150 MG CAP PO SCH ×3 (06:06→21:45)
[2016-11-28] MEDS: ACETAMINOPHEN TAB 650MG DOSE (2X325MG) PO PRN (06:12)
[2016-11-28 06:13] VITALS: BP 147/81
[2016-11-28] MEDS: TRIAMCINOLONE ACETONIDE 0.025 % 80 GM CREAM TOP SCH ×2 (08:03→21:45)
[2016-11-28] MEDS: busPIRone 5 MG TAB PO SCH ×2 (08:03→21:45)
[2016-11-28] MEDS: NICOTINE 14 MG/24 HR TRANSDERMAL TD SCH (08:03)
--- NOTE | 2016-11-28 09:13 | IPN ---
DATE: 11/27/2016 The patient today remains quite manic. Her speech is pressured. She is very irritable. She is upset with her , with her daughter. She says, "I'm feeling better." She says that she is not having the paranoid thinking she had had a few days ago. She also says that she is sleeping better. MENTAL STATUS EXAMINATION: She is alert and oriented times three. Eye contact is fair. Psychomotor activity is increased. She has pressured speech, flight of ideas. She says that her mood is "better." Her affect is somewhat labile and actually, she is pretty irritable. I am not eliciting any psychotic symptoms. She denies suicidal or homicidal ideation. Concentration is fair. Memory is intact. Insight and judgment poor. DIAGNOSES: Bipolar disorder, type 1. Most recent episode depressed. TREATMENT PLAN: At this point, she is still exhibiting significant manic symptoms, so I am going to further increase the Latuda to 80 mg daily, and we will continue to titrate the medications as indicated. MTDD
[2016-11-28] MEDS: LORazepam 1 MG TAB PO PRN ×2 (10:12→14:56)
[2016-11-28 18:00] VITALS: BP 123/70
[2016-11-28] MEDS: LURASIDONE HCL 40 MG TAB (LATUDA) PO SCH (18:18)
--- NOTE | 2016-11-29 01:08 | IPN ---
DATE OF SERVICE: 11/28/2016 The patient today remains quite manic. Speech is pressured. She continues to be focused on her family and the fact that things are not being kept clean and organized in the house. She says that she slept better last night. She says, however, that she woke up and was having a lot of anxiety when she woke up. She has been taking the Ativan, particularly at bedtime and she feels that it has been helping. She has been tolerating the increase in the Latuda well so far. MENTAL STATUS EXAMINATION: This patient is alert and oriented times three. Eye contact is fair. Psychomotor activity is normal. Speech is pressured. She has flight of ideas. There is no suicidal, homicidal ideation. She says her mood is good. Her affect is a bit labile. She is not voicing any psychotic symptoms, but she is very preoccupied with events in her life and she admits that sometimes she is not able to tell the difference of what may have been reality or not. Insight and judgment is fair. Concentration is fair, mentally intact. DIAGNOSIS: Bipolar disorder. TREATMENT PLAN: At this point, we will continue to monitor for continued response from the increase in the Latuda, which she is tolerating well so far. I discussed with the patient that I feel that she is still quite manic and still not able to go home. She seemed to be accepting of this.
[2016-11-29] MEDS: CLINDAMYCIN 150 MG CAP PO SCH ×3 (06:04→21:25)
[2016-11-29 06:24] VITALS: BP 147/87
[2016-11-29] MEDS: ACETAMINOPHEN TAB 650MG DOSE (2X325MG) PO PRN ×2 (06:34→21:28)
[2016-11-29] MEDS: NICOTINE 14 MG/24 HR TRANSDERMAL TD SCH (08:10)
[2016-11-29] MEDS: TRIAMCINOLONE ACETONIDE 0.025 % 80 GM CREAM TOP SCH ×2 (08:10→21:25)
[2016-11-29] MEDS: busPIRone 5 MG TAB PO SCH ×2 (08:10→21:25)
[2016-11-29] MEDS: LORazepam 1 MG TAB PO PRN (10:08)
[2016-11-29] MEDS ORDERED: hydrOXYzine 50 MG TAB PO PRN (14:45)
[2016-11-29] MEDS: NAPROXEN 250 MG TAB PO PRN (15:35)
--- NOTE | 2016-11-29 17:07 | IPN ---
DATE: 11/29/2016 MEDICATIONS: - Latuda 80 mg by mouth nightly - BuSpar 15 mg by mouth twice a day - trazodone 50 mg by mouth nightly - Ativan 1 mg by mouth every 4 hours as needed for anxiety Patient is a 36-year-old female with a lengthy psychiatric history, diagnosed with bipolar disorder, came to be evaluated because of mood swings, anger, pressured speech, agitation, lashing out at her children, lack of sleep, and elevated energy level. Patient was manic. SUBJECTIVE: Patient reports some improvement, but continues to be manic with pressured speech. Patient is labile and talkative. Patient has limited insight. Patient is requesting to be discharged because "I need to see my family." OBJECTIVE: Patient continues manic, talkative, psychotic, with little insight and poor judgment call. ASSESSMENT: Bipolar disorder, manic episode. PLAN: 1. Continue Latuda 80 mg by mouth nightly. 2. Continue BuSpar 15 mg by mouth twice a day. 3. Discontinue trazodone. 4. Start Seroquel 50 mg by mouth nightly plus 50 mg as needed for insomnia. 5. Discontinue Ativan. 6. Vistaril 50 mg by mouth every 6 hours as needed for anxiety. 7. Continue with medication management, individual, and group therapy.
[2016-11-29] MEDS: LURASIDONE HCL 40 MG TAB (LATUDA) PO SCH (17:28)
[2016-11-29 18:00] VITALS: BP 144/78
[2016-11-29] MEDS ORDERED: QUEtiapine FUMARATE 50 MG TAB PO SCH (21:00)
[2016-11-30] MEDS: QUEtiapine FUMARATE 50 MG TAB PO PRN (01:59)
[2016-11-30] MEDS: CLINDAMYCIN 150 MG CAP PO SCH ×3 (05:54→23:01)
[2016-11-30 06:28] VITALS: BP 109/65
[2016-11-30] MEDS: NICOTINE 14 MG/24 HR TRANSDERMAL TD SCH (08:25)
[2016-11-30] MEDS: TRIAMCINOLONE ACETONIDE 0.025 % 80 GM CREAM TOP SCH ×2 (08:25→23:02)
[2016-11-30] MEDS: busPIRone 5 MG TAB PO SCH ×2 (08:25→23:01)
--- NOTE | 2016-11-30 10:29 | IPNPDOC ---
Date/Time Seen The patient was seen on 11/30/16 at 10:22. Progress Note SUBJECTIVE: SUBJECTIVE: 36yoF admitted to [facility] for Bipolar disorder, I was requested to evaluate the patient today related to a nurse's note indicating some mild redness of the thighs bilaterally. She states she has been having some chafing however this morning it seems to be better since her shower, she applied some lotion to her skin. The redness subsequently improved. She is known to have chronic venous insufficiency and varicose veins. She has been trying to elevate her legs. She has been wearing FOSTER stockings, however the ones she was given are not fitting her well and have been sliding down her legs. Lower extremity has improved since wearing the stockings however. OBJECTIVE: GEN: 36 yoF, appears stated age. Well-nourished, well developed. No acute distress. Alert and oriented x 3. HEENT: Normocephalic, atraumatic. Pupils are equal, round, and reactive to light. Extraocular movements are intact. No nystagmus appreciated. Sclera are nonicteric. Conjunctiva without injection. Nose midline. CHEST: Regular rate and rhythm, +S1, +S2 LUNGS: Clear to auscultation bilaterally. No wheezes, rales, or rhonchi. Breathing appears symmetric and easy. Patient is speaking in full sentences. No accessory muscle use. ABD: Round, soft, non-tender, non-distended. +Bowel sounds throughout. No rebound or guarding. No costovertebral angle tenderness. EXT: Pulses 2+ bilaterally dorsalis pedis and radial. trace lower extremity edema appreciated, varicose veins noted B/L. SKIN: [place], dry, warm. Capillary refill <2sec. There is dry skin noted bilaterally with no erythema, rashes, streaking. NEURO: Alert and oriented x 3. Cranial nerves III-XII are intact. No focal deficits appreciated. LABORATORY DATA: Please see below. IMAGING: Bilateral lower extremity ultrasound 11/26/16 Incidental note is made of reflux and prominent size greater saphenous veins bilaterally. Consider reflux study. Otherwise negative bilateral lower extremity duplex venous ultrasound. No evidence of deep vein thrombosis. DVT prophylaxis: Ambulatory ASSESSMENT AND PLAN: 36yoF admitted to [facility] for Bipolar disorder. PROBLEMS: 1. Psych. Plan per Psychiatry. EKG on file. 2. Nicotine dependence. Patch available. 3. Chronic low back pain/right hip pain. Continue Tylenol as needed. Naproxen 250 mg twice a day as needed. She states this works the best for her pain. X- ray of right hip and lumbosacral spine previously requested was canceled. 4. Follow up with PCP on discharge. Cyndee Huston NP. 5. Allergic dermatitis of the hands bilaterally. Likely related to frequent handwashing and application of hand movie editor prior to admission. Continue to avoid harsh soaps and sanitizers. Avoid picking of [place] which patient has applied to her skin. Wash hands with warm water and mild soap if needed. Apply triamcinolone cream twice a day. This continues to improve. 6. Chronic venous insufficiency. Elevate legs as needed. Apply TEDS to lower extremities-ensure these are fitting properly. Low-sodium diet. Ultrasound of lower extremities negative for DVT 11/26/16. 7. Obesity. Complicates care. BMI is noted to be 43.4. 8. Dental pain/Dental infection. Patient with penicillin allergy. Continue Tylenol as needed. Naproxen 250 mg twice a day as needed. Finish course of clindamycin 300 mg every 8 hours. Keep appointment for follow-up with her dentist at discharge. 9. Dry skin lower extremities. Apply Eucerin emollient cream twice a day. 10. Staff member was present throughout exam, Adam VEGA. DISPOSITION: As per psychiatry. VS, I&O, 24H, Fishbone VS, I&O, 24H, Fishbone Vital Signs Date Time Temp Pulse Resp B/P Pulse Ox O2 Delivery O2 Flow Rate FiO2 11/30/16 06:28 96.5 86 18 109/65 Jennifer Garcia Nov 30, 2016 10:29
[2016-11-30] MEDS: LURASIDONE HCL 40 MG TAB (LATUDA) PO SCH (17:46)
[2016-11-30 18:00] VITALS: BP 136/90
--- NOTE | 2016-11-30 18:25 | IPN ---
DATE: 11/30/2016 MEDICATIONS: - Latuda 80 mg by mouth at night - BuSpar 15 mg by mouth twice a day - Seroquel 50 mg by mouth at night plus 50 mg as needed for insomnia - Vistaril 50 mg every six hours as needed for anxiety SUBJECTIVE: "I could not sleep last night." "My family is on me, I could not see my child." OBJECTIVE: The patient is extremely agitated, anxious, labile, unable to sleep. Psychomotor agitation. The patient has tolerated well the medication and is compliant with treatment. MENTAL STATUS EXAMINATION: The patient is dressed in [facility]. The patient is cooperative, but manic. Speech is pressured. Mood is elated. Affect is congruent with mood. No evidence of hallucinations. The patient has some type of grandiosity. Memory and attention and concentration are fair. The patient is able to contract for safety. Insight and judgment poor. ASSESSMENT: Bipolar disorder, manic episode. PLAN: 1. Continue with Latuda 80 mg by mouth at night. 2. Continue with BuSpar 15 mg by mouth twice a day. 3. Increase Seroquel to 100 mg by mouth at night. 4. Continue with Vistaril 50 mg by mouth every six hours as needed for anxiety. 5. Continue with medication management, individual and group therapy.
[2016-11-30] MEDS: NAPROXEN 250 MG TAB PO PRN (19:21)
[2016-11-30] MEDS: QUEtiapine FUMARATE 100 MG TAB PO SCH (23:01)
[2016-12-01] MEDS: ACETAMINOPHEN TAB 650MG DOSE (2X325MG) PO PRN (04:23)
[2016-12-01] MEDS: CLINDAMYCIN 150 MG CAP PO SCH ×3 (06:14→21:16)
[2016-12-01 06:34] VITALS: BP 126/71
[2016-12-01] MEDS: busPIRone 5 MG TAB PO SCH ×2 (08:00→20:08)
[2016-12-01] MEDS: NICOTINE 14 MG/24 HR TRANSDERMAL TD SCH (08:01)
[2016-12-01] MEDS: TRIAMCINOLONE ACETONIDE 0.025 % 80 GM CREAM TOP SCH ×2 (08:02→20:10)
[2016-12-01] MEDS: CALCIUM/VITAMIN D 500 MG TAB PO SCH (09:17)
[2016-12-01] MEDS: FIBER-CON 625 MG TAB PO SCH ×2 (09:17→20:08)
[2016-12-01] MEDS: DOCUSATE SODIUM 100 MG CAP PO SCH ×2 (09:17→20:09)
[2016-12-01] MEDS: PRENATAL VITAMIN TAB PO SCH (09:17)
[2016-12-01] MEDS: EUCERIN 120GM CREAM TOP SCH ×2 (12:51→20:10)
[2016-12-01] MEDS: hydrOXYzine 50 MG TAB PO PRN (12:51)
--- NOTE | 2016-12-01 16:43 | IPN ---
DATE: 12/01/2016 36-year-old female admitted with a manic episode. Patient was agitated at home for 1 week. She was labile, angry, with pressured speech. Reported that she was lashing out at her children. MEDICATIONS: - Latuda 80 mg by mouth nightly - BuSpar 15 mg by mouth twice a day - Seroquel 100 mg by mouth nightly - Vistaril 50 mg by mouth every 6 hours as needed for anxiety SUBJECTIVE: "I am taking too much medication, I am too sedated." OBJECTIVE: Patient continues manic, labile, at times intrusive, talkative, with pressured speech. Patient states that she did not like the way she felt last night after she took the Seroquel. Patient has limited insight and is requesting to go home. MENTAL STATUS EXAMINATION: Patient is dressed in [facility]. Patient continues manic with pressured speech, high energy, elated mood. No evidence of delusions or hallucinations but she reported to nursing staff that she was hearing the voice of her father telling her what to do. Memory, attention, and concentration are impaired. Patient is able to contract for safety in the unit. Insight and judgment is poor. ASSESSMENT: 1. Bipolar disorder, manic episode. PLAN: 1. Continue with Latuda 80 mg by mouth nightly. 2. BuSpar 15 mg by mouth twice a day. 3. Seroquel 100 mg by mouth nightly. 4. Vistaril 50 mg by mouth every 6 hours as needed for anxiety and insomnia. 5. Continue medication management and individual and group therapy.
[2016-12-01 18:00] VITALS: BP 138/71
[2016-12-01] MEDS: LURASIDONE HCL 40 MG TAB (LATUDA) PO SCH (18:07)
[2016-12-01] MEDS: QUEtiapine FUMARATE 100 MG TAB PO SCH (20:09)
[2016-12-02] MEDS: NAPROXEN 250 MG TAB PO PRN (02:35)
[2016-12-02] MEDS: hydrOXYzine 50 MG TAB PO PRN ×3 (05:29→18:14)
[2016-12-02] MEDS: CLINDAMYCIN 150 MG CAP PO SCH ×3 (06:16→20:38)
[2016-12-02 06:39] VITALS: BP 119/76
[2016-12-02] MEDS: PRENATAL VITAMIN TAB PO SCH (08:22)
[2016-12-02] MEDS: FIBER-CON 625 MG TAB PO SCH ×2 (08:22→20:38)
[2016-12-02] MEDS: DOCUSATE SODIUM 100 MG CAP PO SCH ×2 (08:22→20:38)
[2016-12-02] MEDS: CALCIUM/VITAMIN D 500 MG TAB PO SCH (08:22)
[2016-12-02] MEDS: busPIRone 5 MG TAB PO SCH ×2 (08:22→20:38)
[2016-12-02] MEDS: NICOTINE 14 MG/24 HR TRANSDERMAL TD SCH (08:23)
[2016-12-02] MEDS: TRIAMCINOLONE ACETONIDE 0.025 % 80 GM CREAM TOP SCH ×2 (08:24→21:00)
[2016-12-02] MEDS: EUCERIN 120GM CREAM TOP SCH ×2 (08:24→20:39)
--- NOTE | 2016-12-02 14:58 | IPN ---
DATE: 12/02/2016 A 36-year-old female admitted with a manic episode. The patient was agitated at home for one week. She was labile, angry with pressured speech, and reported that she was lashing out at her children. MEDICATIONS: - Latuda 80 mg by mouth at bedtime - BuSpar 15 mg by mouth twice a day - Seroquel 100 mg by mouth at bedtime - Vistaril 50 mg every six hours as needed for anxiety SUBJECTIVE: "I slept better last night, I could sleep five hours." OBJECTIVE: The patient continues manic, labile, talkative with pressured speech, and having emotional swings. The patient gets easily irritated but is more insightful. MENTAL STATUS EXAMINATION: The patient is dressed in [facility]. The patient is more cooperative. She has fair eye contact. Speech is fast, pressured. Mood is anxious, depressed, labile. Affect is congruent with mood. No evidence of delusions or hallucinations. Memory is fair. The patient is fully oriented. Associations are intact. Thinking is logical. Thought content is appropriate. The patient is able to contract for safety on the unit and denies suicidal or homicidal ideation during the interview. Insight and judgment is poor. ASSESSMENT: Bipolar disorder, manic episode. PLAN: 1. Continue Latuda 80 mg by mouth at bedtime. 2. BuSpar 15 mg by mouth twice a day. 3. Seroquel 100 mg by mouth at bedtime. 4. Vistaril 50 mg by mouth every six hours as needed. 5. Continue medication management, individual and group therapy as tolerated by the patient.
[2016-12-02] MEDS: SIMETHICONE 80 MG CHEW TAB PO PRN (15:10)
[2016-12-02] MEDS: LURASIDONE HCL 40 MG TAB (LATUDA) PO SCH (17:42)
[2016-12-02 18:00] VITALS: BP 136/63
[2016-12-02] MEDS: QUEtiapine FUMARATE 100 MG TAB PO SCH (22:06)
[2016-12-03] MEDS: ACETAMINOPHEN TAB 650MG DOSE (2X325MG) PO PRN (02:09)
[2016-12-03] MEDS: NAPROXEN 250 MG TAB PO PRN ×2 (05:39→19:29)
[2016-12-03] MEDS: CLINDAMYCIN 150 MG CAP PO SCH ×3 (06:09→21:00)
[2016-12-03 06:37] VITALS: BP 140/92
[2016-12-03] MEDS: busPIRone 5 MG TAB PO SCH ×2 (08:17→21:00)
[2016-12-03] MEDS: FIBER-CON 625 MG TAB PO SCH ×2 (08:17→21:01)
[2016-12-03] MEDS: PRENATAL VITAMIN TAB PO SCH (08:17)
[2016-12-03] MEDS: CALCIUM/VITAMIN D 500 MG TAB PO SCH (08:17)
[2016-12-03] MEDS: DOCUSATE SODIUM 100 MG CAP PO SCH ×2 (08:17→21:00)
[2016-12-03] MEDS: NICOTINE 14 MG/24 HR TRANSDERMAL TD SCH (08:18)
[2016-12-03] MEDS: TRIAMCINOLONE ACETONIDE 0.025 % 80 GM CREAM TOP SCH ×2 (08:35→21:02)
[2016-12-03] MEDS: EUCERIN 120GM CREAM TOP SCH ×2 (08:35→21:04)
[2016-12-03] MEDS: hydrOXYzine 50 MG TAB PO PRN ×2 (10:26→17:21)
[2016-12-03] MEDS: SIMETHICONE 80 MG CHEW TAB PO PRN (13:32)
[2016-12-03] MEDS: LURASIDONE HCL 40 MG TAB (LATUDA) PO SCH (18:05)
[2016-12-03 18:06] VITALS: BP 110/58
[2016-12-03 18:11] VITALS: BP_SYST 138; BP_DIAS 39; BP_DIAS 89
--- NOTE | 2016-12-03 18:34 | IPN ---
DATE: 12/03/2016 HISTORY: A 36-year-old female admitted with a manic episode. Patient was agitated at home for one week. She was labile, angry, with pressured speech. She reported that she was lashing out at her children. MEDICATIONS: - Latuda 80 mg by mouth at bedtime - BuSpar 15 mg by mouth twice a day - Seroquel 100 mg by mouth at bedtime - Vistaril as needed for anxiety SUBJECTIVE: "I am feeling better." OBJECTIVE: The patient continues talkative with pressured speech, displaying manic behavior and intermittently has emotional swings and irritability. MENTAL STATUS EXAMINATION: The patient is dressed in [facility]. The patient is talkative with pressured speech. Fair eye contact. Mood is manic, labile. No delusions or hallucinations. Memory is intact. Patient is fully oriented. Associations are intact. Thinking is logical. Thought content is appropriate. The patient is able to contract for safety in the unit. Insight and judgment are poor. ASSESSMENT: Bipolar disorder, manic episode. PLAN: 1. Continue Latuda 80 mg by mouth at bedtime 2. BuSpar 15 mg by mouth twice a day 3. Seroquel 100 mg by mouth at bedtime 4. Vistaril as needed for insomnia and anxiety 5. Continue medication management, individual and group therapy.
[2016-12-03] MEDS: QUEtiapine FUMARATE 100 MG TAB PO SCH (21:00)
[2016-12-04] MEDS: hydrOXYzine 50 MG TAB PO PRN ×3 (02:04→21:23)
[2016-12-04] MEDS: CLINDAMYCIN 150 MG CAP PO SCH ×3 (06:17→21:19)
[2016-12-04 07:06] VITALS: BP 131/83
[2016-12-04] MEDS: DOCUSATE SODIUM 100 MG CAP PO SCH ×2 (08:31→21:18)
[2016-12-04] MEDS: busPIRone 5 MG TAB PO SCH ×2 (08:31→21:18)
[2016-12-04] MEDS: NICOTINE 14 MG/24 HR TRANSDERMAL TD SCH (08:31)
[2016-12-04] MEDS: FIBER-CON 625 MG TAB PO SCH ×2 (08:32→21:20)
[2016-12-04] MEDS: PRENATAL VITAMIN TAB PO SCH (08:32)
[2016-12-04] MEDS: EUCERIN 120GM CREAM TOP SCH ×2 (08:32→21:20)
[2016-12-04] MEDS: CALCIUM/VITAMIN D 500 MG TAB PO SCH (08:32)
[2016-12-04] MEDS: TRIAMCINOLONE ACETONIDE 0.025 % 80 GM CREAM TOP SCH ×2 (08:32→21:20)
[2016-12-04] MEDS: NAPROXEN 250 MG TAB PO PRN (11:58)
[2016-12-04] MEDS: LURASIDONE HCL 40 MG TAB (LATUDA) PO SCH (17:37)
[2016-12-04 18:00] VITALS: BP 110/57
[2016-12-04] MEDS: QUEtiapine FUMARATE 100 MG TAB PO SCH (22:09)
[2016-12-05] MEDS: SODIUM CHLORIDE NASAL 0.65% SPRAY BTL (OCEAN) PRN ×7 (01:14→22:30)
[2016-12-05] MEDS: ACETAMINOPHEN TAB 650MG DOSE (2X325MG) PO PRN (05:42)
[2016-12-05] MEDS: CLINDAMYCIN 150 MG CAP PO SCH ×3 (06:13→22:17)
[2016-12-05 06:14] VITALS: BP 103/59
[2016-12-05] MEDS: FIBER-CON 625 MG TAB PO SCH ×2 (08:16→20:06)
[2016-12-05] MEDS: busPIRone 5 MG TAB PO SCH ×2 (08:16→20:03)
[2016-12-05] MEDS: CALCIUM/VITAMIN D 500 MG TAB PO SCH (08:16)
[2016-12-05] MEDS: DOCUSATE SODIUM 100 MG CAP PO SCH ×2 (08:16→20:03)
[2016-12-05] MEDS: NICOTINE 14 MG/24 HR TRANSDERMAL TD SCH (08:16)
[2016-12-05] MEDS: TRIAMCINOLONE ACETONIDE 0.025 % 80 GM CREAM TOP SCH ×2 (08:17→20:04)
[2016-12-05] MEDS: EUCERIN 120GM CREAM TOP SCH ×2 (08:17→20:04)
[2016-12-05] MEDS: PRENATAL VITAMIN TAB PO SCH (08:17)
[2016-12-05] MEDS: NAPROXEN 250 MG TAB PO PRN (14:19)
[2016-12-05] MEDS: LURASIDONE HCL 40 MG TAB (LATUDA) PO SCH (17:50)
[2016-12-05 18:00] VITALS: BP 133/78
[2016-12-05] MEDS: QUEtiapine FUMARATE 100 MG TAB PO SCH (22:59)
[2016-12-06] MEDS: CLINDAMYCIN 150 MG CAP PO SCH ×3 (05:49→21:39)
[2016-12-06 06:00] VITALS: BP 132/78
[2016-12-06] MEDS: CALCIUM/VITAMIN D 500 MG TAB PO SCH (08:21)
[2016-12-06] MEDS: busPIRone 5 MG TAB PO SCH ×2 (08:21→20:51)
[2016-12-06] MEDS: NICOTINE 14 MG/24 HR TRANSDERMAL TD SCH (08:21)
[2016-12-06] MEDS: DOCUSATE SODIUM 100 MG CAP PO SCH ×2 (08:21→20:51)
[2016-12-06] MEDS: FIBER-CON 625 MG TAB PO SCH ×2 (08:21→20:51)
[2016-12-06] MEDS: TRIAMCINOLONE ACETONIDE 0.025 % 80 GM CREAM TOP SCH ×2 (08:21→20:52)
[2016-12-06] MEDS: PRENATAL VITAMIN TAB PO SCH (08:21)
[2016-12-06] MEDS: EUCERIN 120GM CREAM TOP SCH ×2 (08:23→20:52)
[2016-12-06] MEDS: SODIUM CHLORIDE NASAL 0.65% SPRAY BTL (OCEAN) PRN ×3 (12:08→22:10)
[2016-12-06] MEDS: LURASIDONE HCL 40 MG TAB (LATUDA) PO SCH (17:52)
[2016-12-06 18:00] VITALS: BP 132/75
[2016-12-06] MEDS: QUEtiapine FUMARATE 100 MG TAB PO SCH (20:51)
[2016-12-06] MEDS: QUEtiapine FUMARATE 50 MG TAB PO PRN (21:51)
[2016-12-07] MEDS: hydrOXYzine 50 MG TAB PO PRN (03:27)
[2016-12-07 06:23] VITALS: BP 114/78
[2016-12-07] MEDS: CLINDAMYCIN 150 MG CAP PO SCH ×3 (06:42→22:07)
[2016-12-07] MEDS: ACETAMINOPHEN TAB 650MG DOSE (2X325MG) PO PRN ×2 (07:30→20:17)
[2016-12-07] MEDS: CALCIUM/VITAMIN D 500 MG TAB PO SCH (08:21)
[2016-12-07] MEDS: PRENATAL VITAMIN TAB PO SCH (08:21)
[2016-12-07] MEDS: FIBER-CON 625 MG TAB PO SCH ×2 (08:21→20:10)
[2016-12-07] MEDS: DOCUSATE SODIUM 100 MG CAP PO SCH ×2 (08:21→20:10)
[2016-12-07] MEDS: NICOTINE 14 MG/24 HR TRANSDERMAL TD SCH (08:21)
[2016-12-07] MEDS: busPIRone 5 MG TAB PO SCH ×2 (08:21→20:10)
[2016-12-07] MEDS: EUCERIN 120GM CREAM TOP SCH ×2 (08:22→20:11)
[2016-12-07] MEDS: TRIAMCINOLONE ACETONIDE 0.025 % 80 GM CREAM TOP SCH ×2 (08:22→20:11)
[2016-12-07] MEDS: NAPROXEN 250 MG TAB PO PRN (10:49)
[2016-12-07] MEDS: SODIUM CHLORIDE NASAL 0.65% SPRAY BTL (OCEAN) PRN ×2 (10:49→20:12)
--- NOTE | 2016-12-07 16:00 | IPN ---
DATE: 12/06/2016 36-year-old female admitted with a manic episode. The patient was agitated at home for one week. She was labile, angry with pressured speech. She reported that she was lashing out at her children. MEDICATIONS: - Latuda 80 mg by mouth at night - BuSpar 15 mg by mouth twice a day - Seroquel 100 mg at night SUBJECTIVE: "I would like to be able to go home." The patient continues to be talkative with pressure speech and she continues to exhibit hypomanic behavior, although she is improving slowly. She does have occasional mood swings and reports that when she talks to her boyfriend at times she gets angry and impulsive, which is worrisome since she needs to take care of a at home. She is now focused on discharge issues and would like to be discharged as soon as possible; however, her insight and judgment are still limited. She has come up with a plan to be supervised 24 hours a day between relatives and her support system. MENTAL STATUS EXAMINATION: The patient is dressed in [facility]. She is appropriately groomed. She makes good eye contact. Attitude is cooperative. She is alert and oriented. Speech is clear, although continues to be pressured and talkative. She reports feeling in good spirits; however, she admits having some anxiety and also would like to be going home soon. Her affect continues to be labile. Her thought processes are goal directed and is working on a plan to be able to go home soon and also be supervised 24 hours during a short period of time until she returns to baseline. No evidence of delusions or hallucinations. The patient is no longer manic, but displays hypomanic symptoms. The patient is able to contact for safety and denied suicidal or homicidal ideations during the interview. Insight and judgment continues to be improved, but is still limited. ASSESSMENT: Bipolar disorder, manic episode. PLAN: 1. Continue with Latuda 80 mg by mouth at night. 2. BuSpar 15 mg by mouth twice a day. 3. Seroquel 100 mg by mouth at night. 4. Vistaril as needed for insomnia. 5. Continue medication management, individual and group therapy.
[2016-12-07 18:00] VITALS: BP 130/81
[2016-12-07] MEDS: LURASIDONE HCL 40 MG TAB (LATUDA) PO SCH (18:00)
[2016-12-07] MEDS: QUEtiapine FUMARATE 100 MG TAB PO SCH (20:10)
[2016-12-07] MEDS: QUEtiapine FUMARATE 50 MG TAB PO PRN (23:03)
[2016-12-08] MEDS: NAPROXEN 250 MG TAB PO PRN (02:16)
[2016-12-08] MEDS: CLINDAMYCIN 150 MG CAP PO SCH ×2 (06:01→13:02)
[2016-12-08 06:25] VITALS: BP 165/82
[2016-12-08] MEDS: NICOTINE 14 MG/24 HR TRANSDERMAL TD SCH (08:07)
[2016-12-08] MEDS: TRIAMCINOLONE ACETONIDE 0.025 % 80 GM CREAM TOP SCH (08:08)
[2016-12-08] MEDS: EUCERIN 120GM CREAM TOP SCH (08:09)
[2016-12-08] MEDS: CALCIUM/VITAMIN D 500 MG TAB PO SCH (08:09)
[2016-12-08] MEDS: busPIRone 5 MG TAB PO SCH (08:09)
[2016-12-08] MEDS: PRENATAL VITAMIN TAB PO SCH (08:09)
[2016-12-08] MEDS: DOCUSATE SODIUM 100 MG CAP PO SCH (08:09)
[2016-12-08] MEDS: FIBER-CON 625 MG TAB PO SCH (08:09)
[2016-12-08] MEDS ORDERED: QUET1TAB8 PO (09:26)
[2016-12-08] MEDS ORDERED: BUSP5TA PO (09:26)
[2016-12-08] MEDS ORDERED: HYDRO50TAB PO (09:26)
[2016-12-08] MEDS ORDERED: LATU40TA PO (09:26)
[2016-12-08] MEDS ORDERED: NICO14PA TD (11:02)
[2016-12-08] MEDS ORDERED: COLA100C PO (12:38)
[2016-12-08] MEDS ORDERED: PRENATAL VITAMIN PO (12:38)
[2016-12-08] MEDS ORDERED: OCEA0.654 (12:38)
[2016-12-08] MEDS ORDERED: EUCECRE3 TOP (12:49)
--- NOTE | 2016-12-08 13:15 | IPN ---
DATE: 12/07/2016 A 36-year-old female admitted with manic episode. Patient was agitated at home for 1 week. She was labile, angry with pressured speech. She reported that she was lashing out at her children. MEDICATIONS: - Latuda 80 mg by mouth at bedtime - BuSpar 15 mg by mouth twice a day - Seroquel 100 mg by mouth at bedtime - Vistaril as needed for anxiety SUBJECTIVE: "I feel a night and day difference from when I came in. I'm ready to go home." OBJECTIVE: The patient remains talkative with pressured speech. She currently exhibits hypomanic behaviors, emotional swings, and distractibility improving. Sleep improving. Has gone from sleeping 2-3 hours a night to 7 hours last night. Activity level remains increased but is oriented at getting her affairs in order for when she is discharged. She has contacted five people who have agreed to sit with her during the day/night when her is not home. She remains on medications without complaints of side effects. We are trying to make discharge plans as soon as possible, but she will be living with her baby, and her irritability and impulsivity need to improve. MENTAL STATUS EXAMINATION: The patient is dressed in jeans and a T-shirt. She is appropriately groomed. She makes eye contact throughout conversation, and hand gestures are appropriate. Expressions are animated. Attitude is cooperative, and distractibility has improved. She is alert and oriented times three. Talkative with clear speech and appropriately placed inflections. Mood remains anxious about getting to see son. Affect is labile and broad. Thought process is goal oriented although slightly racing. No delusions or hallucinations. Patient is able to contract for safety in our unit. Insight and judgment remains impaired but improved since admission. Short-term, long-term and immediate memory intact. Intellectual functioning estimated to be at high school level. ASSESSMENT: Bipolar disorder, manic episode. PLAN: 1. Continue Latuda 80 mg by mouth at bedtime. 2. Continue BuSpar 15 mg by mouth twice a day. 3. Continue Seroquel 100 mg by mouth at bedtime. 4. Vistaril as needed for insomnia and anxiety. 5. Continue medication management, individual and group therapy. My preceptor for this patient encounter was Dr. Williams Mckeon. The preceptor was physically present in the building during the encounter and was fully available as needed. All aspects of the patient interview, examination, medical decision making process, and medical care plan development were reviewed and approved by the preceptor. The preceptor is aware and concurs with the plan as stated in the body of this note and will attest to such by his/her co-signature.
--- NOTE | 2016-12-08 14:32 | MHDS ---
DATE OF ADMISSION: 11/24/2016 DATE OF DISCHARGE: 12/08/2016 LEGAL STATUS ON ADMISSION: 9.39 legal status. HISTORY OF PRESENT ILLNESS: The following information is according to the initial evaluation of Dr. Chavez and his progress note and my own progress note. On 11/24/2016, Dr. Chavez wrote, "Nina is a 36-year-old woman who had presented to the emergency department with complaint of not sleeping well and increasingly agitated at home for the past one week. She has a lengthy psychiatric history and has mostly been diagnosed with bipolar disorder. She reports that her predominant symptoms include mood lability, anger, pressured speech, agitation, lashing out at the children, lack of sleep, and elevated energy. She attends [facility] and sees Dr. Bolivar. A day prior to her admission, she was at the clinic seeing Dr. Bolivar, and her Latuda was increased from 40 mg to 60 mg." Dr. Chavez also wrote that Dr. Bolivar's psychiatric records on the patient, the patient showed diagnosis of impulse control disorder and borderline personality traits. Ms. Bartlett reports having had an extensive trial of both mood stabilizers and antipsychotic medications, but still has not maintained symptom remission. No notable anxiety or overt psychotic features are reported. Last admission, her CBC showed white blood cells of 13.8 at admission. The rest were within normal limits. On 11/25/2016, her white blood cells were 10.9. The rest of the complete blood count (CBC) also was within normal limits. Complete metabolic panel (CMP) showed a BUN of 19 and alkaline phosphatase of 121, total protein of 6.2, albumin of 3.1, and a positive HCG, since she just delivered a baby. Urine drug screen (UDS) was negative and blood alcohol level was negative. HOSPITAL COURSE: Patient was admitted under Dr. Chavez's team and she was started on previous to admission medication, but Latuda was increased to 80 mg by mouth daily. She was also started on Seroquel 50 mg by mouth at bedtime, since she was having severe insomnia and was in the need of mood stabilization. She did tolerate well 50 mg, but still was unable to sleep, so Seroquel was increased to 100 mg by mouth at bedtime with good results at this point. Patient also was continued with BuSpar 50 mg by mouth twice a day. With the above medication, patient was stabilized. Patient's manic episodes improved slowly but steadily. One of the problems with discharge was the fact that she had tendency to become easily agitated, irritable and impulsive with family members and the baby is in the house, so we had to plan to have her support system adapt to a 24-hour monitorization until the patient becomes stable and at baseline. Her level of energy, pressured speech and talkativeness decreased very slowly, and at the moment of discharge, patient is close to baseline. A family meeting was held before discharge. The family is very supportive and caring for the patient and they will be monitoring and helping her out when she is discharged from the unit. They came up with a plan in which family, friends, or other members of her support system are going to stay in the house with her for a short period of time, since she has to take care of the baby. At the moment of discharge, patient is denying suicidal or homicidal ideation. There is no evidence of psychotic symptoms. No auditory or visual hallucinations are noted. She is discharged in stable condition. She is motivated for treatment and she stated that she will continue taking her medications as prescribed and follow up appointments and to call back if she needs help for her bipolar problems. MENTAL STATUS EXAMINATION AT DISCHARGE: Patient is dressed in [facility]. Patient is calm and cooperative. Speech is somewhat fast, but significantly improved from admission. Patient has good eye contact. Mood is slightly anxious, but again, significantly improved from admission. Affect is appropriate and congruent with mood. Patient is oriented to time, person and situation. Maintains attention and concentration correctly. Instant recall. Recent and remote memory intact. Thought process: Coherent, logical and goal-directed. Patient does not have auditory or visual hallucinations. Patient does not have paranoid, persecutory, somatic, grandiose, or presybeterian delusions. Patient denies suicidal or homicidal ideations. Judgment and insight are fair. DISCHARGE MEDICATIONS: - Latuda 80 mg by mouth daily - Seroquel 100 mg by mouth at bedtime; this medication will be tapered down as soon as she returns completely to her baseline and her sleep is normalized - BuSpar 50 mg by mouth twice a day DISCHARGE DIAGNOSES: AXIS I: Bipolar disorder, manic episode. AXIS II: Borderline personality disorder traits by history. AXIS III: None acute. INSTRUCTIONS TO THE PATIENT: Patient is to continue taking her medications as prescribed and followup appointments. She is advised to maintain absolute sobriety from drugs and alcohol. Patient has a scheduled appointment for psychotropic medication management, individual psychotherapy, and primary care physician as outpatient.
== END 2016-12-08 13:25 | disposition home or self-care (01) | DRG 885 ==
LOC: M ED 21:55 → M PSY 11-24 00:05
PROVIDERS: ADMIT Psychiatry & Neurology Psychiatry; ATTEND Psychiatry & Neurology Psychiatry
DX: F31.9 Bipolar disorder, unspecified (principal); Z68.41 Body mass index [BMI] 40.0-44.9, adult; F60.3 Borderline personality disorder; E66.9 Obesity, unspecified; F17.210 Nicotine dependence, cigarettes, uncomplicated; M54.5 Low back pain; M25.551 Pain in right hip; I87.2 Venous insufficiency (chronic) (peripheral); K04.7 Periapical abscess without sinus; D72.829 Elevated white blood cell count, unspecified; L24.9 Irritant contact dermatitis, unspecified cause; Z79.899 Other long term (current) drug therapy

== ENCOUNTER 2017-07-12 23:23 | Emergency (ER) | payer MEDICAID, OTHER ==
[~2017-07-12] VITALS: Ht 175.3 cm; Wt 129.0 kg
[~2017-07-12 23:23] MED LIST changes: +ALEV220T26 PO; +BUSP5TA PO; +CALC1TAB30 PO; -COLA100C PO; +COLA100C5 PO; +EUCECRE3 TOP; +FIBE625T PO; -FIBE625T15 PO; +FIBE625T22 PO; +HYDRO50TAB PO; +NICO14PA TD; +OCEA0.654; +PRENATAL VITAMIN PO; +QUET1TAB8 PO; +TRAZ50TA11 PO
[2017-07-13] MEDS ORDERED: hydrOXYzine 50 MG TAB PO ONE (01:30)
[2017-07-13 01:39] VITALS: BP 162/87
== END 2017-07-13 01:42 | disposition home or self-care (01) ==
LOC: M ED 23:23
DX: F41.1 Generalized anxiety disorder (principal); Z72.0 Tobacco use

== ENCOUNTER 2017-07-13 20:48 | Emergency (ER) | payer OTHER ==
[~2017-07-13] VITALS: Ht 175.3 cm; Wt 283.0 kg
[2017-07-13 20:50] VITALS: BP 160/91
--- NOTE | 2017-07-13 22:03 | ED PDOC ---
Post-Departure Follow-Up This patient was never seen by me. She left prior to MD evalutation, therefore there is no ED physician note. Kiesha Canas MD 10;02 pm 07/13/2017 KIESHA CANAS MD Jul 13, 2017 22:03
== END 2017-07-13 21:31 | disposition left against medical advice (07) ==
LOC: M ED 21:24
DX: R68.89 Other general symptoms and signs (principal); Z53.29 Procedure and treatment not carried out because of patient's decision for other reasons

== ENCOUNTER 2017-07-19 02:58 | Emergency (ER) | payer OTHER ==
[~2017-07-19] VITALS: Ht 175.3 cm; Wt 128.6 kg
[2017-07-19 03:07] VITALS: BP 129/64
[2017-07-19] MEDS ORDERED: MULT1CHW29 PO (03:18)
== END 2017-07-19 04:31 | disposition home or self-care (01) ==
LOC: M ED 02:58 → EDBD 02:58 → M ED 04:31
DX: F43.0 Acute stress reaction (principal); Z60.9 Problem related to social environment, unspecified; Z72.0 Tobacco use

== ENCOUNTER 2017-07-20 23:45 | Inpatient (IN) | payer MEDICARE, OTHER ==
[~2017-07-20] VITALS: Ht 175.3 cm; Wt 109.1 kg
[~2017-07-20 23:45] MED LIST changes: +MULT1CHW29 PO
[2017-07-21 01:05] LABS: MEAN CORPUSCULAR HEMOGLOBIN 28.5 pg (27.0-33.0); MEAN CORPUSCULAR HGB CONC 33.6 g/dl (32.0-36.5); MEAN CORPUSCULAR VOLUME 84.8 fl (80.0-96.0); RED CELL DISTRIBUTION WIDTH 14.1 % (11.5-14.5); WHITE BLOOD COUNT 12.6 K/mm3 (4.0-10.0)
[2017-07-21 01:13] LABS: CONTROL LINE HCG INT CTR LINE PRESENT
[2017-07-21 01:25] LABS: METHADONE URINE NEGATIVE (NEGATIVE)
[2017-07-21 01:32] LABS: ALBUMIN 3.4 GM/DL (3.2-5.2); ALBUMIN/GLOBULIN RATIO 1.06 (1.00-1.93); ALKALINE PHOSPHATASE 86 U/L (45-117); ALT/SGPT 49 U/L (12-78); ANION GAP 8 MEQ/L (8-16); AST/SGOT 37 U/L (15-37); BILIRUBIN,DIRECT 0.1 MG/DL (0.0-0.2); BILIRUBIN,TOTAL 0.3 MG/DL (0.2-1.0); BLOOD UREA NITROGEN 12 MG/DL (7-18); CALCIUM LEVEL 8.3 MG/DL (8.5-10.1); CARBON DIOXIDE LEVEL 26 MEQ/L (21-32); CHLORIDE LEVEL 105 MEQ/L (98-107); CREATININE FOR GFR 0.68 MG/DL (0.55-1.02); GLOMERULAR FILTRATION RATE > 60.0 (>60); GLUCOSE, FASTING 127 MG/DL (70-105); POTASSIUM SERUM 3.6 MEQ/L (3.5-5.1); SODIUM LEVEL 139 MEQ/L (136-145); TOTAL PROTEIN 6.6 GM/DL (6.4-8.2)
[2017-07-21] MEDS ORDERED: MAALOX 30 ML SUSP *UDC PO PRN (02:45)
[2017-07-21] MEDS ORDERED: traZODone 50 MG TAB PO PRN (02:45)
[2017-07-21] MEDS ORDERED: MOM 30ML SUSPENSION UDC PO PRN (02:45)
[2017-07-21 03:02] VITALS: BP 152/84
[2017-07-21] MEDS ORDERED: DOCU100C16 PO (03:18)
[2017-07-21] MEDS ORDERED: FIBE625T22 PO (03:18)
[2017-07-21] MEDS ORDERED: BUSP10TA PO (03:18)
[2017-07-21] MEDS ORDERED: PREN0.01 PO (03:18)
[2017-07-21] MEDS ORDERED: CIME200T PO (03:18)
[2017-07-21] MEDS ORDERED: CRAN400C PO (03:18)
[2017-07-21] MEDS ORDERED: VITACHTA PO (03:18)
[2017-07-21] MEDS ORDERED: LATU80TA PO (03:18)
[2017-07-21] MEDS ORDERED: RANI150T PO (03:18)
[2017-07-21] MEDS ORDERED: HYDR50CA2 PO (03:18)
[2017-07-21] MEDS ORDERED: DIVALPROEX 250 MG TAB PO SCH (09:00)
[2017-07-21] MEDS: busPIRone 5 MG TAB PO SCH ×3 (09:14→20:22)
[2017-07-21] MEDS: hydrOXYzine 50 MG TAB PO PRN (10:19)
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
[2017-07-21] MEDS: cloNIDine 0.1 MG TAB PO SCH ×2 (17:15→20:22)
[2017-07-21 18:00] VITALS: BP 118/77
[2017-07-21] MEDS: risperiDONE 1 MG M-TAB PO SCH (20:21)
[2017-07-22 06:42] VITALS: BP 144/77
[2017-07-22] MEDS: cloNIDine 0.1 MG TAB PO SCH ×2 (08:01→21:34)
[2017-07-22] MEDS: busPIRone 5 MG TAB PO SCH ×3 (08:01→21:34)
--- NOTE | 2017-07-22 09:20 | IPNPDOC ---
Date Seen The patient was seen on 07/22/17. Progress Note PCP: Marcos Huston FOURTH GRADE TEACHER. ATTENDING: Dr. Omer Ignacio HPI: 36yoF admitted [facility] for [facility], being medically examined today. States she has had PND, was using nasal spray and loratadine. Pt with hi/o LBP, not reporting currently. She does not report neck pain. No weakness, numbness, or tingling in upper extremities. She states she typically does use Aleve at home for back pain, knee pain, or hip pain which occurs sporadically. Denies any fevers, chills, weakness, fatigue, JAY, CP, SOB, cough, palpitations , abdominal pain, N/V/D or changes in bowel or bladder habits. PMHx: Bipolar disorder Anxiety Depression History of back pain Knee pain Hip pain Chronic varicose veins/lower extremity edema Obesity-BMI 43.4 Tobacco use allergic rhinitis PSHX: LEEP procedure Eye surgery as child SOCHX: Resides in: [place] Marital Status: Single Kids: 2, 1 stepchild Employment: Unemployed Tobacco use: One pack per day ETOH: Denies Illicit Drugs: Marijuana once yearly IV Drug Use: Denies Tattoos done unprofessionally: Denies FAMHX: Mother: Alive, history of lung cancer Father: Alive, COPD Siblings: One brother Alive, unknown Children: Alive, well Unexpected deaths due to medical reasons: None. ROS: As noted in HPI, otherwise 11pt ROS of systems reviewed and remarkable only for LMP/07/31. H/O childbirth 11/16/16. Patient states does not breastfeed. PE: GEN: 36 yoF, appears stated age. Well-nourished, well developed. No acute distress. Alert and oriented x 3. Patient becomes agitated at times and is reluctant to provide history. HEENT: Normocephalic, atraumatic. Pupils are equal, round, and reactive to light. Extraocular movements are intact. No nystagmus appreciated. Sclera are nonicteric. Conjunctiva without injection. Nose midline. Nasal turbinates without bogginess. EACs both patent BL. TMs both visualized and richter with good cone of light, no bulging or erythema. No facial asymmetry. Moist mucous membranes. Dentition fair. Pharynx pink and moist, no cobblestoning. Neck supple , trachea midline. No lymphadenopathy or thyromegaly appreciated. CHEST: Regular rate and rhythm, +S1, +S2 LUNGS: Clear to auscultation bilaterally. No wheezes, rales, or rhonchi. Breathing appears symmetric and easy. Patient is speaking in full sentences. No accessory muscle use. ABD: Round, soft, non-tender, non-distended. +Bowel sounds throughout. No rebound or guarding. No costovertebral angle tenderness. EXT: Pulses 2+ bilaterally dorsalis pedis and radial. trace lower extremity edema appreciated, varicose veins noted B/L. SKIN: [place], dry, warm. Capillary refill <2sec. No rashes. NEURO: Alert and oriented x 3. Cranial nerves III-XII are intact. No focal deficits appreciated. EKG: Pending. A&P: 36yoF admitted [facility] 1. Psych. Plan per Psychiatry. Obtain baseline EKG to assure the safety of psychiatric medications as they can prolong the QT interval. 2. Nicotine dependence. Patch available. 3. Chronic low back pain/right hip pain. Continue Tylenol as needed. 4. Follow up with PCP on discharge. Cyndee Huston [employer] GRADE TEACHER. 5. Allergic rhinitis. Continue loratadine daily. Flonase 2 sprays each nostril daily. Saline nasal spray as needed. 6. Leukocytosis. Patient is asymptomatic. Afebrile. Recheck CBC. 7. Chronic venous insufficiency. Elevate legs as needed. Apply teds daily as needed. 8. Obesity. Complicates care. BMI is noted to be 35.5. 9. Staff member was present throughout exam, Inocencia VEGA. VS, I&O, 24H, Fishbone Vital Signs/I&O Vital Signs Date Time Temp Pulse Resp B/P (MAP) Pulse Ox O2 Delivery O2 Flow Rate FiO2 07/22/17 08:01 134/79 07/22/17 06:42 97.3 86 18 07/21/17 03:02 97 Room Air Jennifer Garcia Jul 22, 2017 09:20
[2017-07-22] MEDS: LORATADINE 10 MG TAB PO SCH (09:59)
[2017-07-22] MEDS: OLANZapine 10 MG TAB PO PRN (10:38)
[2017-07-22] MEDS: FLUTICASONE PROP 0.05% NASAL SPRAY 16 GM (FLONASE) SCH (11:18)
[2017-07-22] MEDS: hydrOXYzine 50 MG TAB PO PRN ×2 (11:18→22:09)
--- NOTE | 2017-07-22 11:58 | MHIPNPDOC ---
[facility] Progress Note Progress Note DATE OF SERVICE: 07/22/17 HISTORY: day 2 of admission for manic episode. VITAL SIGNS: See below. NEW TEST RESULTS: na CURRENT MEDICATIONS: See below. MENTAL STATUS EXAMINATION: Patient is a 36-year old female, who is large framed, unpleasant, attempts to be intimidating, wearing hospital attire. Speech: Is spontaneous and over productive Language skills are intact Thought processes including: derailment, tangential, [place] Thought content: discharge, family. Abstract reasoning, and computation: poor. Description of associations: loose. Description of abnormal or psychotic thoughts: continues to state her family wants to keep her here, keep her ill and "sucks her dry".May be responding to internal stim but denies hearing anything but background noise. Judgment: limited Insight: poor. Orientation: oriented to self and surroundings, easily reoriented to day and date. Recent and remote memory: impaired by mental condition Attention span and concentration: varies Fund of knowledge: Full but manic Mood: irritable. Affect: labile. DIAGNOSES: 1. bipolar disorder, manic episode 2. Panic Disorder 3. OCD traits 4. ADD by history 5. borderline personality traits ASSESSMENT:pt began seeking discharge from the moment we met today. seems not to remember we agreed she would be here for the weekend. this was yesterday at which time she says, "I hope al will be right by then". Now she is coming up with excuses as to why she needs to leave. Little mention of her eviction. Becomes threatening when told she is too disorganized in her thinking to be discharged. Threatening law suits. States she slept "enough to be functional" last night. MANAGEMENT PLAN: continue with risperidone for psychotic symptoms and mood stability. Pt very concerned about weight gain so will not offer consta. she has issues with almost every med discussed. Will talk to her about options as mood improves and she becomes more reasonable. Continue close observation and safety monitoring. Pt may benefit from a trial of Abilify Maintena or Saphris. Staff reported that pt was very sleepy and lethargic today. It Project Coordinator will lower clonidine to bid and monitor. If her presentation improves by Tuesday and she presents more organized, less irritable, less labile she will be considered for discharge per our agreement. Medical Info: PCP: Marcos Huston WOOL CLEANER. ATTENDING: Dr. Omer Ignacio HPI: 36yoF admitted to [facility] for Bipolar disorder, being medically examined today. States she has had PND, was using nasal spray and loratadine. Pt with hi/o LBP, not reporting currently. She does not report neck pain. No weakness, numbness, or tingling in upper extremities. She states she typically does use Aleve at home for back pain, knee pain, or hip pain which occurs sporadically. Denies any fevers, chills, weakness, fatigue, JAY, CP, SOB, cough, palpitations, abdominal pain, N/V/D or changes in bowel or bladder habits. PMHx: History of back pain Knee pain Hip pain Chronic varicose veins/lower extremity edema Obesity-BMI 43.4 Tobacco use allergic rhinitis PSHX: LEEP procedure eye surgery as a child. PE: GEN: 36 yoF, appears stated age. Well-nourished, well developed. No acute distress. Alert and oriented x 3. Patient becomes agitated at times and is reluctant to provide history. HEENT: Normocephalic, atraumatic. Pupils are equal, round, and reactive to light. Extraocular movements are intact. No nystagmus appreciated. Sclera are nonicteric. Conjunctiva without injection. Nose midline. Nasal turbinates without bogginess. EACs both patent BL. TMs both visualized and rcihter with good cone of light, no bulging or erythema. No facial asymmetry. Moist mucous membranes. Dentition fair. Pharynx pink and moist, no cobblestoning. Neck supple , trachea midline. No lymphadenopathy or thyromegaly appreciated. CHEST: Regular rate and rhythm, +S1, +S2 LUNGS: Clear to auscultation bilaterally. No wheezes, rales, or rhonchi. Breathing appears symmetric and easy. Patient is speaking in full sentences. No accessory muscle use. ABD: Round, soft, non-tender, non-distended. +Bowel sounds throughout. No rebound or guarding. No costovertebral angle tenderness. EXT: Pulses 2+ bilaterally dorsalis pedis and radial. trace lower extremity edema appreciated, varicose veins noted B/L. SKIN: [place], dry, warm. Capillary refill <2sec. No rashes. NEURO: Alert and oriented x 3. Cranial nerves III-XII are intact. No focal deficits appreciated. EKG: Pending. A&P: 36yoF admitted to [facility] for Bipolar disorder 1. Psych. Plan per Psychiatry. Obtain baseline EKG to assure the safety of psychiatric medications as they can prolong the QT interval. 2. Nicotine dependence. Patch available. 3. Chronic low back pain/right hip pain. Continue Tylenol as needed. 4. Follow up with PCP on discharge. Cyndee Huston NP. 5. Allergic rhinitis. Continue loratadine daily. Flonase 2 sprays each nostril daily. Saline nasal spray as needed. 6. Leukocytosis. Patient is asymptomatic. Afebrile. Recheck CBC. 7. Chronic venous insufficiency. Elevate legs as needed. Apply teds daily as needed. 8. Obesity. Complicates care. BMI is noted to be 35.5. TIME SPENT: 25 minutes. Vital Signs Vital Signs Date Time Temp Pulse Resp B/P (MAP) Pulse Ox O2 Delivery O2 Flow Rate FiO2 07/22/17 08:01 134/79 07/22/17 06:42 97.3 86 18 07/21/17 03:02 97 Room Air Current Medications Current Medications Acetaminophen (Tylenol Tab) 650 mg Q6HP PRN PO HEADACHE or DISCOMFORT; Start at 02:45; Stop 08/20/17 at 02:44 Al Hydrox/Mg Hydrox/Simethicone (Mylanta) 30 ml Q4HP PRN PO HEARTBURN/ INDIGESTION; Start 07/21/17 at 02:45; Stop 08/20/17 at 02:44 Buspirone HCl (Buspar) 15 mg TID PO Last administered on 07/22/17 08:01; Start 07/21/17 at 09:00; Stop 08/20/17 at 08:59 Clonidine HCl (Catapres) 0.1 mg TID PO Last administered on 07/22/17 08:01; Start 07/21/17 at 16:00; Stop 08/20/17 at 15:59 Divalproex Sodium (Depakote) 250 mg BID PO Last administered on 07/21/17 10:17 ; Start 07/21/17 at 09:00; Stop 07/21/17 at 15:35; Status DC Fluticasone Propionate (Flonase 0.05% Nasal [place]) 2 spray DAILY NA Last administered on 07/22/17 11:18; Start 07/22/17 at 09:00; Stop 08/21/17 at 08:59 Home Med (Med Rec Complete!) ASDIRECTED XX ; Start 07/21/17 at 03:30; Stop at 03:38; Status DC Hydroxyzine HCl (Atarax) 50 mg Q6HP PRN PO ANXIETY Last administered on 11:18; Start 07/21/17 at 01:00; Stop 08/20/17 at 00:59 Loratadine (Claritin) 10 mg DAILY PO Last administered on 07/22/17 09:59; Start 07/22/17 at 09:00; Stop 08/21/17 at 08:59 Magnesium Hydroxide (Milk Of Magnesia) 30 ml DAILYPRN PRN PO CONSTIPATION; Start 07/21/17 at 02:45; Stop 08/20/17 at 02:44 Olanzapine (ZyPREXA) 10 mg Q4HP PRN PO ANXIETY/AGITATION Last administered on 10:38; Start 07/21/17 at 01:00; Stop 08/20/17 at 00:59 Risperidone (RisperDAL M-TAB) 1 mg QHS PO Last administered on 07/21/17 20:21; Start 07/21/17 at 21:00; Stop 08/20/17 at 20:59 Sodium Chloride ([place] Nasal [place]) 2 spray Q2HP PRN NA NASAL DRYNESS; Start at 09:30; Stop 08/21/17 at 09:29 Trazodone HCl (Desyrel) 50 mg QHSP PRN PO INSOMNIA; Start 07/21/17 at 02:45; Stop 08/20/17 at 02:44; Status Cancel Allergies Coded Allergies: Acetaminophen (Verified Allergy, Unknown, 07/12/17) Latex (Verified Allergy, Unknown, 07/12/17) Oxycodone (Verified Allergy, Unknown, 07/12/17) Penicillins (Verified Allergy, Unknown, 07/12/17) Penicillins Cross Reactors (Verified Allergy, Unknown, 07/12/17) Phenobarbital (Verified Allergy, Unknown, 07/12/17) Procaine (Verified Allergy, Unknown, 07/12/17) Lurasidone (Unverified Adverse Reaction, Unknown, 07/21/17) Trazodone (Unverified Adverse Reaction, Unknown, 07/21/17) Marissa Monroe Jul 22, 2017 11:58
--- NOTE | 2017-07-22 16:58 | ECGEPIP ---
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
[2017-07-22 18:00] VITALS: BP 137/90
[2017-07-22] MEDS: risperiDONE 1 MG M-TAB PO SCH (21:31)
[2017-07-22] MEDS: NICOTINE 21MG/24HR 1 EA TRANSDERMAL TD SCH (21:36)
[2017-07-22] MEDS: SODIUM CHLORIDE NASAL 0.65% SPRAY BTL (OCEAN) PRN (21:38)
[2017-07-23] MEDS: OLANZapine 10 MG TAB PO PRN (01:30)
[2017-07-23] MEDS: ACETAMINOPHEN TAB 650MG DOSE (2X325MG) PO PRN ×2 (01:39→11:53)
[2017-07-23 06:50] VITALS: BP 132/92
[2017-07-23 07:29] LABS: MEAN CORPUSCULAR HEMOGLOBIN 28.7 pg (27.0-33.0); RED CELL DISTRIBUTION WIDTH 14.1 % (11.5-14.5); WHITE BLOOD COUNT 10.1 K/mm3 (4.0-10.0)
[2017-07-23] MEDS: cloNIDine 0.1 MG TAB PO SCH ×2 (08:29→22:17)
[2017-07-23] MEDS: LORATADINE 10 MG TAB PO SCH (08:29)
[2017-07-23] MEDS: busPIRone 5 MG TAB PO SCH ×3 (08:29→22:16)
[2017-07-23] MEDS: FLUTICASONE PROP 0.05% NASAL SPRAY 16 GM (FLONASE) SCH (08:29)
[2017-07-23] MEDS: NICOTINE 21MG/24HR 1 EA TRANSDERMAL TD SCH (08:29)
[2017-07-23] MEDS ORDERED: INFLUENZA QUADRIVALENT PF VACCINE 0.5ML SYRINGE (90686) IM ONE (09:00)
[2017-07-23] MEDS: MULTIVITAMINS/MINERALS THERAP 1 TAB PO SCH (15:35)
[2017-07-23] MEDS: hydrOXYzine 50 MG TAB PO PRN (15:35)
[2017-07-23] MEDS ORDERED: PALIPERIDONE PALMITATE 234 MG/1.5 ML INJ (INVEGA SUSTENNA)(J2426) IM ONE (16:00)
[2017-07-23] MEDS: NAPROXEN 250 MG TAB PO PRN (16:22)
[2017-07-23] MEDS: SODIUM CHLORIDE NASAL 0.65% SPRAY BTL (OCEAN) PRN (17:35)
[2017-07-23 18:14] VITALS: BP 122/70
--- NOTE | 2017-07-23 22:03 | IPN ---
DATE: 07/23/2017 SUBJECTIVE: The patient remains quite manic. She states that, "It's like the motherboard has burned out." This is referring to the fact that she continues to have problems with confusion in her thinking. Although I asked her several times, she still was not able to explain to me what happened that child protective services (CPS) removed her youngest child from the home. MENTAL STATUS EXAMINATION: This patient is alert and oriented times three. She is experiencing pressured speech, flight of ideas. There is no suicidal or homicidal ideation. She is experiencing manic mood. Her affect is labile. Concentration is poor. Insight and judgment poor. DIAGNOSIS: Bipolar disorder type one, manic, severe with psychotic symptoms. TREATMENT PLAN: She remains quite manic. She is very delusional. She did tell me that she had cut back on her Latuda and so I think this is a tendency of the patient tends to have, trying to cut her medications when she is not doing well. At this point, I recommended that we start Invega Sustenna 234 mg intramuscular (IM) today and then in four days she should get the followup dose of 156 mg, and then every four weeks after that. We will continue to stabilize the patient, and the patient is still at this point very manic with very poor insight and judgment.
[2017-07-23] MEDS: risperiDONE 1 MG M-TAB PO SCH (22:16)
[2017-07-24] MEDS: hydrOXYzine 50 MG TAB PO PRN (02:23)
[2017-07-24] MEDS: OLANZapine 10 MG TAB PO PRN ×2 (02:23→14:04)
[2017-07-24 06:46] VITALS: BP 135/81
[2017-07-24] MEDS: FLUTICASONE PROP 0.05% NASAL SPRAY 16 GM (FLONASE) SCH (08:16)
[2017-07-24] MEDS: MULTIVITAMINS/MINERALS THERAP 1 TAB PO SCH (08:16)
[2017-07-24] MEDS: busPIRone 5 MG TAB PO SCH ×3 (08:16→20:32)
[2017-07-24] MEDS: cloNIDine 0.1 MG TAB PO SCH ×2 (08:18→20:33)
[2017-07-24] MEDS: LORATADINE 10 MG TAB PO SCH (08:18)
[2017-07-24] MEDS: NICOTINE 21MG/24HR 1 EA TRANSDERMAL TD SCH (08:18)
[2017-07-24] MEDS: NAPROXEN 250 MG TAB PO PRN (11:41)
[2017-07-24 18:13] VITALS: BP 129/66
--- NOTE | 2017-07-24 19:18 | IPN ---
DATE: 07/24/2017 SUBJECTIVE: The patient today states, "I'm feeling really sleepy." She says that she slept last night about five hours, which is actually good. She seems to be better able to hold a conversation today. MENTAL STATUS EXAMINATION: The patient is alert and oriented times three. Eye contact is fairly good. Psychomotor activity is decreased. Speech is less pressured today and no flight of ideas is noted. Mood is alright. It seems to be hypomanic at this point. Affect is less labile today. I did not elicit any psychotic symptoms today. She is not suicidal or homicidal. Concentration fair. Insight and judgment are fair. DIAGNOSIS: Bipolar disorder type 1, manic, severe. TREATMENT PLAN: At this point, the patient seems to be improving. She did take her first injection of Invega Sustenna 234 mg intramuscular (IM) yesterday, and she will be getting her second dose within four days after that. I will go ahead and discontinue her oral Risperdal at this point since she has now started the Invega Sustenna. MTDD
[2017-07-24] MEDS: risperiDONE 1 MG M-TAB PO SCH (21:58)
[2017-07-25 07:05] VITALS: BP 139/68
[2017-07-25] MEDS: MULTIVITAMINS/MINERALS THERAP 1 TAB PO SCH (08:15)
[2017-07-25] MEDS: busPIRone 5 MG TAB PO SCH ×3 (08:15→22:11)
[2017-07-25] MEDS: NICOTINE 21MG/24HR 1 EA TRANSDERMAL TD SCH (08:15)
[2017-07-25] MEDS: cloNIDine 0.1 MG TAB PO SCH ×2 (08:16→22:11)
[2017-07-25] MEDS: LORATADINE 10 MG TAB PO SCH (08:16)
[2017-07-25] MEDS: FLUTICASONE PROP 0.05% NASAL SPRAY 16 GM (FLONASE) SCH (08:17)
[2017-07-25] MEDS ORDERED: diphenhydrAMINE 50 MG CAP PO PRN (09:45)
[2017-07-25] MEDS: hydrOXYzine 50 MG TAB PO PRN (09:56)
--- NOTE | 2017-07-25 11:54 | MHIPNPDOC ---
[facility] Progress Note Progress Note DATE OF SERVICE: 07/25/17 HISTORY:day 5 of admission for manic episode of bipolar disorder. VITAL SIGNS: See below. NEW TEST RESULTS: na CURRENT MEDICATIONS: See below. MENTAL STATUS EXAMINATION: Patient is a 36-year old female, who is tall, obese, dressed in street clothes, good hygiene, good eye contact. Speech: Is spontaneous and over productive Language skills are intact Thought processes including: derailment, tangential, [place] Thought content: discharge, family. Abstract reasoning, and computation: poor. Description of associations: loose. Description of abnormal or psychotic thoughts: continues to state her family wants to keep her here, keep her ill and "sucks her dry".May be responding to internal stim but denies hearing anything but background noise. Judgment: limited Insight: poor. Orientation: oriented to self and surroundings, easily reoriented to day and date. Recent and remote memory: impaired by mental condition Attention span and concentration: varies Fund of knowledge: Full but manic Mood: irritable. Affect: labile. DIAGNOSES: 1. bipolar disorder, manic episode 2. Panic Disorder 3. OCD traits 4. ADD by history 5. borderline personality traits ASSESSMENT: pt requested family meeting in anticipation of discharge. She received Invega Sustenna over the weekend under orders of Dr. Bolivar. This will likely lead to better control of her manic symptoms and improved mood with less irritability. Pt still over productive in speech but better organized in thought pattern. No longer overly sedated after clonidine dose changed from tid to bid. MANAGEMENT PLAN: family refused (mother refused) to attend family meeting at this time saying Marcos has custody of kids and Nina is not permitted back in the home. CPS has not spoken to pt but pt states she wants to talk to them now as she feels her thoughts are clearer. We have left a message for CPS to contact us for this meeting. pt requested Marcos and Nahomyannika attend the meeting. Pauline is here today. Mother says Marcos will not attend meeting at this time. CPS plans to meet with pt tomorrow. We will have to investigate housing options for her. TIME SPENT: 25 minutes. Vital Signs Vital Signs Date Time Temp Pulse Resp B/P (MAP) Pulse Ox O2 Delivery O2 Flow Rate FiO2 07/25/17 08:16 139/68 07/25/17 07:05 96.7 91 22 Room Air 07/21/17 03:02 97 Current Medications Current Medications Acetaminophen (Tylenol Tab) 650 mg Q6HP PRN PO HEADACHE or DISCOMFORT Last administered on 07/23/17 11:53; Start 07/21/17 at 02:45; Stop 07/23/17 at 14:47; Status DC Al Hydrox/Mg Hydrox/Simethicone (Mylanta) 30 ml Q4HP PRN PO HEARTBURN/ INDIGESTION; Start 07/21/17 at 02:45; Stop 08/20/17 at 02:44 Buspirone HCl (Buspar) 15 mg TID PO Last administered on 07/25/17 08:15; Start 07/21/17 at 09:00; Stop 08/20/17 at 08:59 Clonidine HCl (Catapres) 0.1 mg BID PO Last administered on 07/25/17 08:16; Start 07/22/17 at 21:00; Stop 08/20/17 at 15:59 Clonidine HCl (Catapres) 0.1 mg TID PO Last administered on 07/22/17 08:01; Start 07/21/17 at 16:00; Stop 07/22/17 at 14:39; Status DC Diphenhydramine HCl (Benadryl) 50 mg Q8HP PRN PO EPS; Start 07/25/17 at 09:45; Stop 08/24/17 at 09:44 Divalproex Sodium (Depakote) 250 mg BID PO Last administered on 07/21/17 10:17 ; Start 07/21/17 at 09:00; Stop 07/21/17 at 15:35; Status DC Fluticasone Propionate (Flonase 0.05% Nasal [place]) 2 spray DAILY NA Last administered on 07/25/17 08:17; Start 07/22/17 at 09:00; Stop 08/21/17 at 08:59 Home Med (Med Rec Complete!) ASDIRECTED XX ; Start 07/21/17 at 03:30; Stop at 03:38; Status DC Hydroxyzine HCl (Atarax) 50 mg Q6HP PRN PO ANXIETY Last administered on 09:56; Start 07/21/17 at 01:00; Stop 08/20/17 at 00:59 Loratadine (Claritin) 10 mg DAILY PO Last administered on 07/25/17 08:16; Start 07/22/17 at 09:00; Stop 08/21/17 at 08:59 Magnesium Hydroxide (Milk Of Magnesia) 30 ml DAILYPRN PRN PO CONSTIPATION; Start 07/21/17 at 02:45; Stop 08/20/17 at 02:44 Multivitamins (Theragram-M) 1 tab DAILY PO Last administered on 07/25/17 08:15 ; Start 07/23/17 at 09:00; Stop 08/22/17 at 08:59 Naproxen (Naprosyn) 250 mg BIDP PRN PO PAIN Last administered on 07/24/17 11: 41; Start 07/23/17 at 14:45; Stop 08/22/17 at 14:44 Nicotine (Nicoderm Cq 21mg) 1 patch DAILY TD Last administered on 07/25/17 08: 15; Start 07/22/17 at 09:00; Stop 08/21/17 at 08:59 Olanzapine (ZyPREXA) 10 mg Q4HP PRN PO ANXIETY/AGITATION Last administered on 14:04; Start 07/21/17 at 01:00; Stop 08/20/17 at 00:59 Risperidone (RisperDAL M-TAB) 1 mg QHS PO Last administered on 07/24/17 21:58 ; Start 07/21/17 at 21:00; Stop 08/20/17 at 20:59 Sodium Chloride ([place] Nasal [place]) 2 spray Q2HP PRN NA NASAL DRYNESS Last administered on 07/23/17 17:35; Start 07/22/17 at 09:30; Stop 08/21/17 at 09:29 Trazodone HCl (Desyrel) 50 mg QHSP PRN PO INSOMNIA; Start 07/21/17 at 02:45; Stop 08/20/17 at 02:44; Status Cancel Allergies Coded Allergies: Acetaminophen (Verified Allergy, Unknown, 07/12/17) Latex (Verified Allergy, Unknown, 07/12/17) Oxycodone (Verified Allergy, Unknown, 07/12/17) Penicillins (Verified Allergy, Unknown, 07/12/17) Penicillins Cross Reactors (Verified Allergy, Unknown, 07/12/17) Phenobarbital (Verified Allergy, Unknown, 07/12/17) Procaine (Verified Allergy, Unknown, 07/12/17) Lurasidone (Unverified Adverse Reaction, Unknown, 07/21/17) Trazodone (Unverified Adverse Reaction, Unknown, 07/21/17) Marissa Monroe Jul 25, 2017 11:54
[2017-07-25] MEDS: OLANZapine 10 MG TAB PO PRN (13:17)
[2017-07-25] MEDS: NAPROXEN 250 MG TAB PO PRN (15:30)
[2017-07-25 18:00] VITALS: BP 120/66
[2017-07-25] MEDS: risperiDONE 1 MG M-TAB PO SCH (22:11)
[2017-07-26 06:49] VITALS: BP 136/83
[2017-07-26] MEDS: FLUTICASONE PROP 0.05% NASAL SPRAY 16 GM (FLONASE) SCH (08:16)
[2017-07-26] MEDS: MULTIVITAMINS/MINERALS THERAP 1 TAB PO SCH (08:16)
[2017-07-26] MEDS: cloNIDine 0.1 MG TAB PO SCH ×2 (08:17→20:51)
[2017-07-26] MEDS: LORATADINE 10 MG TAB PO SCH (08:17)
[2017-07-26] MEDS: busPIRone 5 MG TAB PO SCH ×3 (08:17→20:51)
[2017-07-26] MEDS: NICOTINE 21MG/24HR 1 EA TRANSDERMAL TD SCH (08:17)
[2017-07-26] MEDS: NAPROXEN 250 MG TAB PO PRN (09:18)
[2017-07-26] MEDS: hydrOXYzine 50 MG TAB PO PRN (12:10)
--- NOTE | 2017-07-26 16:23 | MHIPNPDOC ---
[facility] Progress Note Progress Note DATE OF SERVICE: 07/26/17 HISTORY: day 6 of admission for manic episode. VITAL SIGNS: See below. NEW TEST RESULTS: na CURRENT MEDICATIONS: See below. MENTAL STATUS EXAMINATION: Patient is a 36-year old female, who is large framed, unpleasant, attempts to be intimidating, wearing hospital attire. Speech: Is spontaneous and over productive Language skills are intact Thought processes including: derailment, tangential, [place] Thought content: discharge, family. Abstract reasoning, and computation: poor. Description of associations: loose. Description of abnormal or psychotic thoughts: continues to state her family wants to keep her here, keep her ill and "sucks her dry".May be responding to internal stim but denies hearing anything but background noise. Judgment: limited Insight: poor. Orientation: oriented to self and surroundings, easily reoriented to day and date. Recent and remote memory: impaired by mental condition Attention span and concentration: varies Fund of knowledge: Full but manic Mood: irritable. Affect: labile. DIAGNOSES: 1. bipolar disorder, manic episode 2. Panic Disorder 3. OCD traits 4. ADD by history 5. borderline personality traits ASSESSMENT:Pt is much more pleasant during interactions. She remains verbally over productive but apparently this is how she is. She talks a lot. She is pleasant, coherent and smiling. She attended treatment planning meeting and actively participated needing additional time to review the MTP. Pt is sleeping about 6 hours but she wakes in a panic. She report this happens every night. She believes she may be having a flashback or perhaps a nightmare but she not able to distinguish which. Pt attended programming today. She met with CPS about the allegations she was threatening harm to others including daughter Kasey. Pt addressed the allegations and explained her position. She does not recall threatening but she did admit she has made the same threat in the past but would never follow through on "ripping out her throat or pushing her down the stairs". Pt will be cautioned about never texting things like that or saying these things. MANAGEMENT PLAN: continue meds, pt unable to return home per CPS decision today. will work with her on [place] housing. will contact nurse case manager and NRCL. continue observation status, provide support and encourage good behavior. TIME SPENT: 60 minutes. Vital Signs Vital Signs Date Time Temp Pulse Resp B/P (MAP) Pulse Ox O2 Delivery O2 Flow Rate FiO2 07/26/17 08:17 136/83 07/26/17 06:49 96.9 74 16 Room Air 07/21/17 03:02 97 Current Medications Current Medications Acetaminophen (Tylenol Tab) 650 mg Q6HP PRN PO HEADACHE or DISCOMFORT Last administered on 07/23/17 11:53; Start 07/21/17 at 02:45; Stop 07/23/17 at 14:47; Status DC Al Hydrox/Mg Hydrox/Simethicone (Mylanta) 30 ml Q4HP PRN PO HEARTBURN/ INDIGESTION; Start 07/21/17 at 02:45; Stop 08/20/17 at 02:44 Buspirone HCl (Buspar) 15 mg TID PO Last administered on 07/26/17 16:18; Start 07/21/17 at 09:00; Stop 08/20/17 at 08:59 Clonidine HCl (Catapres) 0.1 mg BID PO Last administered on 07/26/17 08:17; Start 07/22/17 at 21:00; Stop 08/20/17 at 15:59 Clonidine HCl (Catapres) 0.1 mg TID PO Last administered on 07/22/17 08:01; Start 07/21/17 at 16:00; Stop 07/22/17 at 14:39; Status DC Diphenhydramine HCl (Benadryl) 50 mg Q8HP PRN PO EPS; Start 07/25/17 at 09:45; Stop 08/24/17 at 09:44 Divalproex Sodium (Depakote) 250 mg BID PO Last administered on 07/21/17 10:17 ; Start 07/21/17 at 09:00; Stop 07/21/17 at 15:35; Status DC Fluticasone Propionate (Flonase 0.05% Nasal [place]) 2 spray DAILY NA Last administered on 07/26/17 08:16; Start 07/22/17 at 09:00; Stop 08/21/17 at 08:59 Home Med (Med Rec Complete!) ASDIRECTED XX ; Start 07/21/17 at 03:30; Stop at 03:38; Status DC Hydroxyzine HCl (Atarax) 50 mg Q6HP PRN PO ANXIETY Last administered on 12:10; Start 07/21/17 at 01:00; Stop 08/20/17 at 00:59 Loratadine (Claritin) 10 mg DAILY PO Last administered on 07/26/17 08:17; Start 07/22/17 at 09:00; Stop 08/21/17 at 08:59 Magnesium Hydroxide (Milk Of Magnesia) 30 ml DAILYPRN PRN PO CONSTIPATION; Start 07/21/17 at 02:45; Stop 08/20/17 at 02:44 Multivitamins (Theragram-M) 1 tab DAILY PO Last administered on 07/26/17 08:16 ; Start 07/23/17 at 09:00; Stop 08/22/17 at 08:59 Naproxen (Naprosyn) 250 mg BIDP PRN PO PAIN Last administered on 07/26/17 09: 18; Start 07/23/17 at 14:45; Stop 08/22/17 at 14:44 Nicotine (Nicoderm Cq 21mg) 1 patch DAILY TD Last administered on 07/26/17 08: 17; Start 07/22/17 at 09:00; Stop 08/21/17 at 08:59 Olanzapine (ZyPREXA) 10 mg Q4HP PRN PO ANXIETY/AGITATION Last administered on 13:17; Start 07/21/17 at 01:00; Stop 08/20/17 at 00:59 Risperidone (RisperDAL M-TAB) 1 mg QHS PO Last administered on 07/25/17 22:11 ; Start 07/21/17 at 21:00; Stop 08/20/17 at 20:59 Sodium Chloride ([place] Nasal [place]) 2 spray Q2HP PRN NA NASAL DRYNESS Last administered on 07/23/17 17:35; Start 07/22/17 at 09:30; Stop 08/21/17 at 09:29 Trazodone HCl (Desyrel) 50 mg QHSP PRN PO INSOMNIA; Start 07/21/17 at 02:45; Stop 08/20/17 at 02:44; Status Cancel Allergies Coded Allergies: Acetaminophen (Verified Allergy, Unknown, 07/12/17) Latex (Verified Allergy, Unknown, 07/12/17) Oxycodone (Verified Allergy, Unknown, 07/12/17) Penicillins (Verified Allergy, Unknown, 07/12/17) Penicillins Cross Reactors (Verified Allergy, Unknown, 07/12/17) Phenobarbital (Verified Allergy, Unknown, 07/12/17) Procaine (Verified Allergy, Unknown, 07/12/17) Lurasidone (Unverified Adverse Reaction, Unknown, 07/21/17) Trazodone (Unverified Adverse Reaction, Unknown, 07/21/17) Marissa Monroe Jul 26, 2017 16:23
[2017-07-26 18:00] VITALS: BP 128/82
[2017-07-26] MEDS: risperiDONE 1 MG M-TAB PO SCH (20:51)
[2017-07-27] MEDS: OLANZapine 10 MG TAB PO PRN (03:42)
[2017-07-27 06:40] VITALS: BP 136/84
[2017-07-27] MEDS: busPIRone 5 MG TAB PO SCH ×3 (08:36→21:06)
[2017-07-27] MEDS: FLUTICASONE PROP 0.05% NASAL SPRAY 16 GM (FLONASE) SCH (08:36)
[2017-07-27] MEDS: LORATADINE 10 MG TAB PO SCH (08:37)
[2017-07-27] MEDS: cloNIDine 0.1 MG TAB PO SCH (08:37)
[2017-07-27] MEDS: MULTIVITAMINS/MINERALS THERAP 1 TAB PO SCH (08:37)
[2017-07-27] MEDS: NICOTINE 21MG/24HR 1 EA TRANSDERMAL TD SCH (08:38)
[2017-07-27] MEDS: NAPROXEN 250 MG TAB PO PRN (08:39)
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
[2017-07-27] MEDS ORDERED: PALIPERIDONE PALMITATE 156 MG/1ML INJ(INVEGA SUSTENNA)(J2426) IM ONE (09:45)
[2017-07-27 14:18] VITALS: BP 126/59
[2017-07-27] MEDS: SODIUM CHLORIDE NASAL 0.65% SPRAY BTL (OCEAN) PRN (15:48)
[2017-07-27 18:00] VITALS: BP 112/74
[2017-07-27] MEDS: risperiDONE 1 MG M-TAB PO SCH (21:07)
[2017-07-28] MEDS: hydrOXYzine 50 MG TAB PO PRN (00:38)
[2017-07-28 06:31] VITALS: BP 118/72
--- NOTE | 2017-07-28 09:02 | IPNPDOC ---
Date Seen The patient was seen on 07/28/17. Progress Note HPI: 36yoF admitted to [facility] for Bipolar disorder, being medically examined today. States she has had PND, was using nasal spray and loratadine. She states she has had more sinus congestion, facial pain in the frontal area. Nasal drainage has been yellow or green. No fevers or chills. Pt with h/o LBP, not reporting currently. She does not report neck pain. No weakness, numbness, or tingling in upper extremities. She states she typically does use Aleve at home for back pain, knee pain, or hip pain which occurs sporadically. Denies any weakness, fatigue, JAY, CP, SOB, cough, palpitations, abdominal pain , N/V/D or changes in bowel or bladder habits. PMHx: Bipolar disorder Anxiety Depression History of back pain Knee pain Hip pain Chronic varicose veins/lower extremity edema Obesity-BMI 43.4 Tobacco use allergic rhinitis PSHX: LEEP procedure Eye surgery as child PE: GEN: 36 yoF, appears stated age. Well-nourished, well developed. No acute distress. Alert and oriented x 3. HEENT: Normocephalic, atraumatic. Tender to palpation over the frontal sinus areas. Pupils are equal, round, and reactive to light. Extraocular movements are intact. No nystagmus appreciated. Sclera are nonicteric. Conjunctiva without injection. Nose midline. Yellowish nasal drainage noted. EACs both patent BL. TMs both visualized and richter with good cone of light, no bulging or erythema. No facial asymmetry. Moist mucous membranes. Dentition fair. Pharynx pink and moist. Neck supple, trachea midline. No lymphadenopathy or thyromegaly appreciated. CHEST: Regular rate and rhythm, +S1, +S2 LUNGS: Clear to auscultation bilaterally. No wheezes, rales, or rhonchi. Breathing appears symmetric and easy. Patient is speaking in full sentences. No accessory muscle use. ABD: Round, soft, non-tender, non-distended. +Bowel sounds throughout. No rebound or guarding. No costovertebral angle tenderness. EXT: Pulses 2+ bilaterally dorsalis pedis and radial. trace lower extremity edema appreciated, varicose veins noted B/L, wearing teds stockings. SKIN: [place], dry, warm. Capillary refill <2sec. No rashes. NEURO: Alert and oriented x 3. Cranial nerves III-XII are intact. No focal deficits appreciated. EKG: Normal sinus rhythm with sinus arrhythmia Otherwise normal EKG No significant change when compared to prior tracing of 11/24/2016. A&P: 36yoF admitted to [facility] for Bipolar disorder 1. Psych. Plan per Psychiatry. EKG on file. 2. Nicotine dependence. Patch available. 3. Chronic low back pain/right hip pain. Continue Tylenol as needed. 4. Follow up with PCP on discharge. 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 5. Allergic rhinitis. Continue loratadine daily. Flonase 2 sprays each nostril daily. Saline nasal spray every 2 hours as needed. 6. Sinusitis. Continue Flonase as above. Continue saline nasal spray as above. Patient is noted to be penicillin allergic. Doxycycline 100 mg by mouth twice a day 10 days. 7. Chronic venous insufficiency. Elevate legs as needed. Apply teds daily as needed. 8. Obesity. Complicates care. BMI is noted to be 35.5. 9. Staff member was present throughout exam, Nancy VEGA. VS, I&O, 24H, [place] Vital Signs/I&O Vital Signs Date Time Temp Pulse Resp B/P (MAP) Pulse Ox O2 Delivery O2 Flow Rate FiO2 07/28/17 06:31 97.7 88 20 118/72 (87) 07/27/17 14:18 95 Room Air Jennifer Garcia Jul 28, 2017 09:02
[2017-07-28] MEDS: MULTIVITAMINS/MINERALS THERAP 1 TAB PO SCH (09:10)
[2017-07-28] MEDS: FLUTICASONE PROP 0.05% NASAL SPRAY 16 GM (FLONASE) SCH (09:10)
[2017-07-28] MEDS: NAPROXEN 250 MG TAB PO PRN (09:10)
[2017-07-28] MEDS: LORATADINE 10 MG TAB PO SCH (09:11)
[2017-07-28] MEDS: busPIRone 5 MG TAB PO SCH ×3 (09:11→21:27)
[2017-07-28] MEDS: NICOTINE 21MG/24HR 1 EA TRANSDERMAL TD SCH (09:11)
[2017-07-28] MEDS: DOXYCYCLINE HYCLATE 100 MG TAB PO SCH ×2 (10:23→21:26)
--- NOTE | 2017-07-28 13:41 | MHIPNPDOC ---
[facility] Progress Note Progress Note DATE OF SERVICE: 07/28/17 HISTORY: day 8 of admission for manic episode. VITAL SIGNS: See below. NEW TEST RESULTS: evaluated by medicine for sinus complaints. CURRENT MEDICATIONS: See below. MENTAL STATUS EXAMINATION: Patient is a 36-year old female, who is large framed, wearing street clothes, hair is pulled back, fair skin, cooperative, pleasant. Speech: Is spontaneous and rapid, non-stop, not pressured. Language skills are intact Thought processes including: linear Thought content: discharge, family. Abstract reasoning, and computation: good. Description of associations: good Description of abnormal or psychotic thoughts: denies feelings of anger. Denies feeling suicidal or homicidal. No psychotic symptoms illicited. Judgment: limited Insight: fair Orientation: oriented x 4 Recent and remote memory: grossly intact Attention span and concentration: good Fund of knowledge: Full but manic Mood: euthymic. Affect: congruent DIAGNOSES: 1. bipolar disorder, manic episode 2. Panic Disorder 3. OCD traits 4. ADD by history 5. borderline personality traits ASSESSMENT:Pt engaged in 1:1 today. Her TP was coherent, logical and free of FOI or B[place]. Pt admits that once hospitalized she gets panicky so she exhibits more symptoms of eric. She spent a lot of time in and out of hospitals as a child with epilepsy. She says her family is used to her being sick - not doing well. She states that currently she feels quite well and though she loathes going to a hotel to live she will do what needs to be done. She is hopeful she and Marcos and work things out. If not she is hopeful she can return to her housing situation. She plans to abide by the court order and do what is directed. Pt is sleeping much better. She is not angry or irritable. She does talk nearly nonstop and it's hard to get a word in. Apparently this is how she is and not just when manic. She says the Invega injections makes her feel very foggy and wants to wait until after the discharge meeting tomorrow to get the 2nd shot. Her CM Marci will pick her up after she herself attends the meeting, and take Nina to [facility]. MANAGEMENT PLAN: order Invega Sustenna for tomorrow, continue meds as prescribed , continue close obs. TIME SPENT: 15 minutes. Vital Signs Vital Signs Date Time Temp Pulse Resp B/P (MAP) Pulse Ox O2 Delivery O2 Flow Rate FiO2 07/28/17 06:31 97.7 88 20 118/72 (87) 07/27/17 14:18 95 Room Air Current Medications Current Medications Acetaminophen (Tylenol Tab) 650 mg Q6HP PRN PO HEADACHE or DISCOMFORT Last administered on 07/23/17 11:53; Start 07/21/17 at 02:45; Stop 07/23/17 at 14:47; Status DC Al Hydrox/Mg Hydrox/Simethicone (Mylanta) 30 ml Q4HP PRN PO HEARTBURN/ INDIGESTION; Start 07/21/17 at 02:45; Stop 08/20/17 at 02:44 Buspirone HCl (Buspar) 15 mg TID PO Last administered on 07/28/17 09:11; Start 07/21/17 at 09:00; Stop 08/20/17 at 08:59 Clonidine HCl (Catapres) 0.1 mg BID PO Last administered on 07/27/17 08:37; Start 07/22/17 at 21:00; Stop 07/27/17 at 14:59; Status DC Clonidine HCl (Catapres) 0.1 mg QHS PO ; Start 07/28/17 at 21:00; Stop at 20:59 Clonidine HCl (Catapres) 0.1 mg TID PO Last administered on 07/22/17 08:01; Start 07/21/17 at 16:00; Stop 07/22/17 at 14:39; Status DC Diphenhydramine HCl (Benadryl) 50 mg Q8HP PRN PO EPS; Start 07/25/17 at 09:45; Stop 08/24/17 at 09:44 Divalproex Sodium (Depakote) 250 mg BID PO Last administered on 07/21/17 10:17 ; Start 07/21/17 at 09:00; Stop 07/21/17 at 15:35; Status DC Doxycycline Hyclate (Vibramycin) 100 mg BID PO Last administered on 07/28/17 10:23; Start 07/28/17 at 09:00; Stop 08/06/17 at 23:59 Fluticasone Propionate (Flonase 0.05% Nasal [place]) 2 spray DAILY NA Last administered on 07/28/17 09:10; Start 07/22/17 at 09:00; Stop 08/21/17 at 08:59 Home Med (Med Rec Complete!) ASDIRECTED XX ; Start 07/21/17 at 03:30; Stop at 03:38; Status DC Hydroxyzine HCl (Atarax) 50 mg Q6HP PRN PO ANXIETY Last administered on 00:38; Start 07/21/17 at 01:00; Stop 08/20/17 at 00:59 Loratadine (Claritin) 10 mg DAILY PO Last administered on 07/28/17 09:11; Start 07/22/17 at 09:00; Stop 08/21/17 at 08:59 Magnesium Hydroxide (Milk Of Magnesia) 30 ml DAILYPRN PRN PO CONSTIPATION; Start 07/21/17 at 02:45; Stop 08/20/17 at 02:44 Multivitamins (Theragram-M) 1 tab DAILY PO Last administered on 07/28/17 09:10 ; Start 07/23/17 at 09:00; Stop 08/22/17 at 08:59 Naproxen (Naprosyn) 250 mg BIDP PRN PO PAIN Last administered on 07/28/17 09: 10; Start 07/23/17 at 14:45; Stop 08/22/17 at 14:44 Nicotine (Nicoderm Cq 21mg) 1 patch DAILY TD Last administered on 07/28/17 09: 11; Start 07/22/17 at 09:00; Stop 08/21/17 at 08:59 Olanzapine (ZyPREXA) 10 mg Q4HP PRN PO ANXIETY/AGITATION Last administered on 03:42; Start 07/21/17 at 01:00; Stop 07/27/17 at 14:59; Status DC Risperidone (RisperDAL M-TAB) 0.5 mg QHS PO Last administered on 07/27/17 21: 07; Start 07/27/17 at 21:00; Stop 08/26/17 at 20:59 Risperidone (RisperDAL M-TAB) 1 mg QHS PO Last administered on 07/26/17 20:51 ; Start 07/21/17 at 21:00; Stop 07/27/17 at 09:23; Status DC Sodium Chloride ([place] Nasal [place]) 2 spray Q2HP PRN NA NASAL DRYNESS Last administered on 07/27/17t 15:48; Start 07/22/17 at 09:30; Stop 08/21/17 at 09:29 Trazodone HCl (Desyrel) 50 mg QHSP PRN PO INSOMNIA; Start 07/21/17 at 02:45; Stop 08/20/17 at 02:44; Status Cancel Allergies Coded Allergies: Acetaminophen (Verified Allergy, Unknown, 07/12/17) Latex (Verified Allergy, Unknown, 07/12/17) Oxycodone (Verified Allergy, Unknown, 07/12/17) Penicillins (Verified Allergy, Unknown, 07/12/17) Penicillins Cross Reactors (Verified Allergy, Unknown, 07/12/17) Phenobarbital (Verified Allergy, Unknown, 07/12/17) Procaine (Verified Allergy, Unknown, 07/12/17) Lurasidone (Unverified Adverse Reaction, Unknown, 07/21/17) Trazodone (Unverified Adverse Reaction, Unknown, 07/21/17) Marissa Monroe Jul 28, 2017 13:41
[2017-07-28 18:00] VITALS: BP 136/76
[2017-07-28] MEDS ORDERED: cloNIDine 0.1 MG TAB PO SCH (21:00)
[2017-07-28] MEDS: risperiDONE 1 MG M-TAB PO SCH (21:28)
[2017-07-29] MEDS: hydrOXYzine 50 MG TAB PO PRN (03:32)
[2017-07-29 03:33] VITALS: BP 132/82
[2017-07-29 06:43] VITALS: BP 112/57
[2017-07-29] MEDS: DOXYCYCLINE HYCLATE 100 MG TAB PO SCH (08:39)
[2017-07-29] MEDS: FLUTICASONE PROP 0.05% NASAL SPRAY 16 GM (FLONASE) SCH (08:39)
[2017-07-29] MEDS: MULTIVITAMINS/MINERALS THERAP 1 TAB PO SCH (08:39)
[2017-07-29] MEDS: NICOTINE 21MG/24HR 1 EA TRANSDERMAL TD SCH (08:39)
[2017-07-29] MEDS: LORATADINE 10 MG TAB PO SCH (08:39)
[2017-07-29] MEDS: busPIRone 5 MG TAB PO SCH (08:39)
[2017-07-29] MEDS ORDERED: NICO21PAT TD (08:59)
[2017-07-29] MEDS ORDERED: CLONI1TA PO (08:59)
[2017-07-29] MEDS ORDERED: DIPH50CA PO (08:59)
[2017-07-29] MEDS ORDERED: INVE156I IM (08:59)
[2017-07-29] MEDS ORDERED: HYDRO50TAB PO (08:59)
[2017-07-29] MEDS ORDERED: BUSP5TA PO (08:59)
[2017-07-29] MEDS ORDERED: RISP-4 PO (08:59)
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
[2017-07-29] MEDS ORDERED: PALIPERIDONE PALMITATE 156 MG/1ML INJ(INVEGA SUSTENNA)(J2426) IM ONE (09:30)
[2017-07-29] MEDS ORDERED: DOXY100T2 PO (10:42)
== END 2017-07-29 10:15 | disposition home or self-care (01) | DRG 753 ==
LOC: M ED 23:45 → M ED INP 07-21 02:43 → M PSY 07-21 03:20
PROVIDERS: ADMIT Psychiatry & Neurology Psychiatry; ATTEND Psychiatry & Neurology Psychiatry
DX: F31.9 Bipolar disorder, unspecified (principal); E66.9 Obesity, unspecified; F41.0 Panic disorder [episodic paroxysmal anxiety]; F60.3 Borderline personality disorder; F42.9 Obsessive-compulsive disorder, unspecified; Z79.899 Other long term (current) drug therapy; Z91.040 Latex allergy status; Z88.0 Allergy status to penicillin; Z88.8 Allergy status to other drugs, medicaments and biological substances; Z88.6 Allergy status to analgesic agent; Z88.5 Allergy status to narcotic agent; F17.210 Nicotine dependence, cigarettes, uncomplicated; J30.9 Allergic rhinitis, unspecified; M54.5 Low back pain; I87.2 Venous insufficiency (chronic) (peripheral); J32.9 Chronic sinusitis, unspecified

== ENCOUNTER → 2018-01-10 | Outpatient (REF) | payer MEDICARE ==
[2018-01-10 23:11] LABS: CHLAMYDIA DNA AMPLIFICATION NEGATIVE (NEGATIVE); GC DNA AMPLIFICATION NEGATIVE (NEGATIVE)
== END ==
LOC: M SFHCWAGY 14:28
DX: Z12.4 Encounter for screening for malignant neoplasm of cervix (principal); Z11.3 Encounter for screening for infections with a predominantly sexual mode of transmission
CPT/HCPCS: 87591

== ENCOUNTER → 2018-02-02 | Outpatient (REF) | payer MEDICARE ==
[2018-02-03 10:49] LABS: HIV 1&2 SCREEN CENTAUR NEGATIVE (NEGATIVE)
== END ==
LOC: M SFHCWAGY 13:44
DX: Z11.3 Encounter for screening for infections with a predominantly sexual mode of transmission (principal); Z11.4 Encounter for screening for human immunodeficiency virus [HIV]

== ENCOUNTER → 2018-02-02 | Outpatient (CLI) | payer MEDICARE | LOC: M WHC 12:50 | DX: T83.32XA Displacement of intrauterine contraceptive device, initial encounter (principal); Y84.8 Other medical procedures as the cause of abnormal reaction of the patient, or of later complication, without mention of misadventure at the time of the procedure; Z11.3 Encounter for screening for infections with a predominantly sexual mode of transmission; Z11.4 Encounter for screening for human immunodeficiency virus [HIV] | CPT/HCPCS: 36415 ==

== ENCOUNTER → 2018-03-07 | Outpatient (CLI) | payer MEDICARE, MEDICAID ==
[2018-03-07 12:19] LABS: ALBUMIN 3.3 GM/DL (3.2-5.2); ALKALINE PHOSPHATASE 91 U/L (45-117); ALT/SGPT 72 U/L (12-78); ANION GAP 5 MEQ/L (8-16); AST/SGOT 38 U/L (7-37); BILIRUBIN,TOTAL 0.3 MG/DL (0.2-1.0); BLOOD UREA NITROGEN 15 MG/DL (7-18); CALCIUM LEVEL 8.9 MG/DL (8.5-10.1); CARBON DIOXIDE LEVEL 29 MEQ/L (21-32); CHLORIDE LEVEL 107 MEQ/L (98-107); CHOLESTEROL LEVEL 257 MG/DL (<200); CHOLESTEROL RISK RATIO 5.976 (<5); CREATININE FOR GFR 0.68 MG/DL (0.55-1.30); GLOMERULAR FILTRATION RATE > 60.0 (>60); GLUCOSE, FASTING 156 MG/DL (70-100); HDL CHOLESTEROL 43 MG/DL (>40); LDL CHOLESTEROL 161.8 MG/DL (<100); NON-HDL-C 214 MG/DL; SODIUM LEVEL 141 MEQ/L (136-145); TOTAL PROTEIN 6.6 GM/DL (6.4-8.2); TRIGLYCERIDES LEVEL 261 MG/DL (<150)
== END ==
LOC: M LAB 10:34
DX: E78.5 Hyperlipidemia, unspecified (principal)
CPT/HCPCS: 80053

== ENCOUNTER → 2018-07-11 | Outpatient (REF) | payer MEDICARE, MEDICAID ==
[2018-07-11 13:44] LABS: BASO % 0.4 % (0.0-1.0); EOS # 0.4 10^3/uL (0.0-0.50); EOS % 3.8 % (0.0-3.0); HEMOGLOBIN 14.5 g/dl (12.0-15.5); IMMATURE GRANULOCYTE % 0.6 % (0-3.0); LYMPH # 2.4 10^3/uL (1.5-4.5); LYMPH % 24.7 % (24.0-44.0); MEAN CORPUSCULAR VOLUME 81.9 fl (80.0-96.0); MONO # 0.7 10^3/uL (0.0-0.8); MONO % 6.8 % (0.0-5.0); NEUTROPHILS # 6.3 10^3/uL (1.8-7.7); NEUTROPHILS % 63.7 % (36.0-66.0); PLATELET COUNT, AUTOMATED 215 10^3/uL (150-450); RED BLOOD COUNT 5.37 10^6/uL (4.00-5.40); RED CELL DISTRIBUTION WIDTH 13.2 % (11.5-14.5); WHITE BLOOD COUNT 9.9 10^3/uL (4.0-10.0)
[2018-07-11 14:21] LABS: ALBUMIN 3.3 GM/DL (3.2-5.2); ALKALINE PHOSPHATASE 102 U/L (45-117); ALT/SGPT 52 U/L (12-78); ANION GAP 10 MEQ/L (8-16); AST/SGOT 24 U/L (7-37); BILIRUBIN,TOTAL 0.3 MG/DL (0.2-1.0); BLOOD UREA NITROGEN 14 MG/DL (7-18); CALCIUM LEVEL 8.8 MG/DL (8.5-10.1); CARBON DIOXIDE LEVEL 28 MEQ/L (21-32); CHLORIDE LEVEL 104 MEQ/L (98-107); CHOLESTEROL LEVEL 251 MG/DL (<200); CHOLESTEROL RISK RATIO 6.605 (<5); CREATININE FOR GFR 0.64 MG/DL (0.55-1.30); GLOMERULAR FILTRATION RATE > 60.0 (>60); GLUCOSE, FASTING 120 MG/DL (70-100); HDL CHOLESTEROL 38 MG/DL (>40); LDL CHOLESTEROL 148.8 MG/DL (<100); NON-HDL-C 213 MG/DL; POTASSIUM SERUM 4.3 MEQ/L (3.5-5.1); SODIUM LEVEL 142 MEQ/L (136-145); TOTAL PROTEIN 6.6 GM/DL (6.4-8.2); TRIGLYCERIDES LEVEL 321 MG/DL (<150)
[2018-07-11 14:27] LABS: ESTIMATED AVERAGE GLUCOSE 160 MG/DL (60-110); HEMOGLOBIN A1c 7.2 %
== END ==
LOC: M LABDRAW1 12:38
DX: F31.9 Bipolar disorder, unspecified (principal); R73.01 Impaired fasting glucose; E78.5 Hyperlipidemia, unspecified
CPT/HCPCS: 80053

== ENCOUNTER → 2018-10-12 | Outpatient (REF) | payer MEDICARE, MEDICAID ==
[2018-10-12 13:38] LABS: BASO % 0.3 % (0.0-1.0); EOS # 0.3 10^3/uL (0.0-0.50); EOS % 2.8 % (0.0-3.0); HEMATOCRIT 43.9 % (36.0-47.0); HEMOGLOBIN 14.5 g/dl (12.0-15.5); IMMATURE GRANULOCYTE % 0.5 % (0-3.0); LYMPH # 2.7 10^3/uL (1.5-4.5); LYMPH % 22.9 % (24.0-44.0); MEAN CORPUSCULAR HEMOGLOBIN 26.8 pg (27.0-33.0); MEAN CORPUSCULAR VOLUME 81.1 fl (80.0-96.0); MONO # 0.8 10^3/uL (0.0-0.8); MONO % 6.5 % (0.0-5.0); NEUTROPHILS # 7.8 10^3/uL (1.8-7.7); PLATELET COUNT, AUTOMATED 215 10^3/uL (150-450); RED BLOOD COUNT 5.41 10^6/uL (4.00-5.40); RED CELL DISTRIBUTION WIDTH 13.3 % (11.5-14.5); WHITE BLOOD COUNT 11.6 10^3/uL (4.0-10.0)
[2018-10-12 14:03] LABS: ALBUMIN 3.3 GM/DL (3.2-5.2); ALBUMIN/GLOBULIN RATIO 1.03 (1.00-1.93); ALKALINE PHOSPHATASE 114 U/L (45-117); ALT/SGPT 50 U/L (12-78); ANION GAP 8 MEQ/L (8-16); AST/SGOT 17 U/L (7-37); BILIRUBIN,TOTAL 0.4 MG/DL (0.2-1.0); BLOOD UREA NITROGEN 11 MG/DL (7-18); CALCIUM LEVEL 8.8 MG/DL (8.5-10.1); CARBON DIOXIDE LEVEL 29 MEQ/L (21-32); CHLORIDE LEVEL 104 MEQ/L (98-107); CHOLESTEROL LEVEL 142 MG/DL (<200); CREATININE FOR GFR 0.68 MG/DL (0.55-1.30); GLOMERULAR FILTRATION RATE > 60.0 (>60); GLUCOSE, FASTING 116 MG/DL (70-100); HDL CHOLESTEROL 40 MG/DL (>40); LDL CHOLESTEROL 65 MG/DL (<100); NON-HDL-C 102 MG/DL; POTASSIUM SERUM 4.3 MEQ/L (3.5-5.1); SODIUM LEVEL 141 MEQ/L (136-145); TOTAL PROTEIN 6.5 GM/DL (6.4-8.2); TRIGLYCERIDES LEVEL 186 MG/DL (<150)
[2018-10-12 15:29] LABS: ESTIMATED AVERAGE GLUCOSE 160 MG/DL (60-110); HEMOGLOBIN A1c 7.2 %
== END ==
LOC: M LABDRAW1 12:00
DX: E11.9 Type 2 diabetes mellitus without complications (principal); E78.5 Hyperlipidemia, unspecified; F31.9 Bipolar disorder, unspecified
CPT/HCPCS: 80053

== ENCOUNTER → 2019-02-06 | Outpatient (CLI) | payer MEDICARE, MEDICAID ==
[~2019-02-06] MED LIST changes: -/ACETCOD2T PO; -/QUET10TA; +ACET1TAB15 PO; -ACET50TA PO; +CIME200T5 PO; +CLONI1TA PO; +CRAN400C PO; +DIPH50CA PO; +DOCU100C16 PO; +DOXY100T2 PO; +HYDR50CA2 PO; +INVE156I IM; +LATU80TA PO; +MAPA500T17 PO; +MAPA500T2 PO; +NICO21PAT TD; +PRENTAB77 PO; -QUET20XRTB; +RISP-4 PO; +SERO1TAB; +SERO200T43; +TRAZ-160 PO; -TRAZ50TA11 PO; +VITACHTA PO
[2019-02-06 12:51] LABS: BASO # 0.1 10^3/uL (0.0-0.2); BASO % 0.5 % (0.0-1.0); EOS # 0.1 10^3/uL (0.0-0.50); EOS % 1.4 % (0.0-3.0); HEMATOCRIT 43.4 % (36.0-47.0); HEMOGLOBIN 14.3 g/dl (12.0-15.5); LYMPH # 2.3 10^3/uL (1.5-4.5); LYMPH % 22.4 % (24.0-44.0); MEAN CORPUSCULAR HGB CONC 32.9 g/dl (32.0-36.5); MEAN CORPUSCULAR VOLUME 81.9 fl (80.0-96.0); MONO # 0.7 10^3/uL (0.0-0.8); MONO % 6.4 % (0.0-5.0); NEUTROPHILS % 68.8 % (36.0-66.0); PLATELET COUNT, AUTOMATED 217 10^3/uL (150-450); WHITE BLOOD COUNT 10.2 10^3/uL (4.0-10.0)
[2019-02-06 13:19] LABS: ALBUMIN 3.7 GM/DL (3.2-5.2); ALT/SGPT 36 U/L (12-78); BILIRUBIN,TOTAL 0.5 MG/DL (0.2-1.0); BLOOD UREA NITROGEN 15 MG/DL (7-18); CALCIUM LEVEL 8.8 MG/DL (8.5-10.1); CARBON DIOXIDE LEVEL 29 MEQ/L (21-32); CHLORIDE LEVEL 105 MEQ/L (98-107); CHOLESTEROL LEVEL 134 MG/DL (<200); CREATININE FOR GFR 0.73 MG/DL (0.55-1.30); GLOMERULAR FILTRATION RATE > 60.0 (>60); GLUCOSE, FASTING 108 MG/DL (70-100); HDL CHOLESTEROL 40 MG/DL (>40); LDL CHOLESTEROL 70 MG/DL (<100); NON-HDL-C 94 MG/DL; POTASSIUM SERUM 4.3 MEQ/L (3.5-5.1); SODIUM LEVEL 141 MEQ/L (136-145); TOTAL PROTEIN 6.5 GM/DL (6.4-8.2); TRIGLYCERIDES LEVEL 122 MG/DL (<150)
[2019-02-06 13:35] LABS: HEMOGLOBIN A1c 6.4 %
== END ==
LOC: M LAB 11:52
PROVIDERS: ATTEND Nurse Practitioner Family
DX: E11.9 Type 2 diabetes mellitus without complications (principal); E78.5 Hyperlipidemia, unspecified

== ENCOUNTER → 2019-03-08 | Outpatient (REF) | payer MEDICARE, MEDICAID ==
[2019-03-10 15:08] LABS: HPV HYBRID CAPTURE II Negative (Negative)
== END ==
LOC: M SFHCWAGY 11:03
PROVIDERS: ATTEND Nurse Practitioner Women's Health
DX: Z12.4 Encounter for screening for malignant neoplasm of cervix (principal); R87.612 Low grade squamous intraepithelial lesion on cytologic smear of cervix (LGSIL)
CPT/HCPCS: 87624; G0123; G0463

== ENCOUNTER 2019-05-02 14:34 | Inpatient (IN) | payer MEDICAID, MEDICARE ==
[~2019-05-02] VITALS: Ht 172.7 cm; Wt 117.8 kg
[~2019-05-02 14:34] MED LIST changes: -TRAZ-160 PO; +TRAZ-252 PO
[2019-05-02 15:23] LABS: HEMATOCRIT 44.4 % (36.0-47.0); MEAN CORPUSCULAR HEMOGLOBIN 27.9 pg (27.0-33.0); MEAN CORPUSCULAR HGB CONC 33.8 g/dl (32.0-36.5); MEAN CORPUSCULAR VOLUME 82.7 fl (80.0-96.0); PLATELET COUNT, AUTOMATED 248 10^3/uL (150-450); RED BLOOD COUNT 5.37 10^6/uL (4.00-5.40); WHITE BLOOD COUNT 15.2 10^3/uL (4.0-10.0)
[2019-05-02 15:51] LABS: AMPHETAMINES LEVEL URINE NEGATIVE (NEGATIVE); BARBITURATES URINE NEGATIVE (NEGATIVE); BENZODIAZEPINES URINE NEGATIVE (NEGATIVE); CANNABINOIDS URINE NEGATIVE (NEGATIVE); COCAINE METABOLITE URINE NEGATIVE (NEGATIVE); METHADONE URINE NEGATIVE (NEGATIVE); OPIATES URINE NEGATIVE (NEGATIVE); PHENCYCLIDINE URINE NEGATIVE (NEGATIVE)
[2019-05-02 15:56] LABS: HCG, SERUM QUALITATIVE NEGATIVE (NEGATIVE)
[2019-05-02 16:06] LABS: ACETAMINOPHEN LEVEL < 2.0 UG/ML (10.0-30.0); ALBUMIN 3.9 GM/DL (3.2-5.2); ALT/SGPT 33 U/L (12-78); BILIRUBIN,DIRECT 0.1 MG/DL (0.0-0.2); BILIRUBIN,TOTAL 0.4 MG/DL (0.2-1.0); BLOOD UREA NITROGEN 13 MG/DL (7-18); CARBON DIOXIDE LEVEL 26 MEQ/L (21-32); CHLORIDE LEVEL 107 MEQ/L (98-107); CREATININE FOR GFR 0.82 MG/DL (0.55-1.30); ETHYL ALCOHOL (ETHANOL) 0.003 % (0.000-0.010); GLOMERULAR FILTRATION RATE > 60.0 (>60); GLUCOSE, FASTING 101 MG/DL (70-100); POTASSIUM SERUM 3.9 MEQ/L (3.5-5.1); SALICYLATE LEVEL 4.7 MG/DL (5.0-30.0); SODIUM LEVEL 141 MEQ/L (136-145); TOTAL PROTEIN 7.3 GM/DL (6.4-8.2)
[2019-05-02] MEDS ORDERED: ATOR1TAB21 PO (19:49)
[2019-05-02] MEDS ORDERED: CEFU50TA PO (19:49)
[2019-05-02] MEDS ORDERED: BUPR15TASR PO (19:49)
[2019-05-02] MEDS ORDERED: METF500T13 PO (19:49)
[2019-05-02] MEDS ORDERED: OMEP20CA3 PO (19:49)
[2019-05-02] MEDS ORDERED: INVE117I IM (19:50)
[2019-05-02] MEDS ORDERED: CLON0.2T PO (19:50)
[2019-05-02] MEDS ORDERED: CLONI1TA PO (19:53)
[2019-05-02] MEDS ORDERED: FLUTISP NARES (19:53)
[2019-05-02] MEDS ORDERED: ALEV1TAB PO (19:53)
[2019-05-02] MEDS ORDERED: D31000TA PO (19:53)
[2019-05-02] MEDS ORDERED: VITA100T28 PO (19:58)
[2019-05-02] MEDS ORDERED: MULTCAP PO (19:58)
[2019-05-02] MEDS ORDERED: VITA100T77 PO (19:58)
[2019-05-02] MEDS ORDERED: LEVOTAB10 PO (19:58)
[2019-05-02] MEDS ORDERED: ALPH600C PO (19:58)
[2019-05-02] MEDS ORDERED: PHARMACY COMMENT (19:59)
[2019-05-02] MEDS ORDERED: FLUTICASONE PROP 0.05% NASAL SPRAY 16 GM (FLONASE) NARES PRN (21:30)
[2019-05-02] MEDS ORDERED: NICOTINE 7 MG/24 HR TRANSDERMAL TD PRN (21:45)
[2019-05-02] MEDS: LORazepam 1 MG TAB PO PRN (22:21)
[2019-05-02] MEDS: QUEtiapine FUMARATE 50 MG TAB PO SCH (22:21)
[2019-05-02] MEDS: OMEPRAZOLE 20 MG CAP PO SCH (22:22)
[2019-05-02] MEDS: cloNIDine 0.1 MG TAB PO SCH (22:22)
[2019-05-02 22:45] VITALS: BP 144/71
[2019-05-03 06:46] VITALS: BP 135/74
[2019-05-03] MEDS ORDERED: buPROPion **SR TABLET** (ZYBAN) 150MG PO SCH (09:00)
[2019-05-03] MEDS: OMEPRAZOLE 20 MG CAP PO SCH ×2 (09:13→21:14)
[2019-05-03] MEDS: metFORMIN (GLUCOPHAGE) 500 MG TAB PO SCH ×2 (09:13→17:14)
[2019-05-03] MEDS: ATORVASTATIN 20 MG TAB PO SCH (09:13)
[2019-05-03] MEDS: THIAMINE 100 MG TAB PO SCH (09:13)
[2019-05-03] MEDS: VITAMIN D 1,000 INTERNATIONAL UNITS TABLET PO SCH (09:13)
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
[2019-05-03] MEDS ORDERED: PALIPERIDONE PALMITATE 156MG/1ML INJ(INVEGA)(J2426)(FREE PSY INPT ONLY) IM ONE (13:00)
[2019-05-03] MEDS ORDERED: BROMOCRIPTINE MESYLATE 2.5 MG TAB PO ONE (16:00)
--- NOTE | 2019-05-03 17:00 | HPEPDOC ---
[facility] Medical History & Physical Date of Admission May 02, 2019 Date of Service: May 03, 2019 Primary Care Physician: Marcos Huston [facility] Attending Physician: MARY KULKARNI DO History and Physical CHIEF COMPLAINT: Medical H&P during psychiatric stay requested by Dr Kulkarni HISTORY OF PRESENT ILLNESS: 38 yo healthy female currently in psychiatric department for evaluation of bipolar disorder, borderline personality PAST MEDICAL HISTORY: Patient denies HTN,DM,thyroid disease. states overall healthy except for occasional anemia, LBP and sciatica PAST PSYCHIATRIC HISTORY: 1. bipolar disorder 2. borderline personality disorder PAST SURGICAL HISTORY: LEEP procedure, lazy eye surgery as child SOCIAL HISTORY: smokes 1/2 to 1 ppd, occasional (not daily) EtOH use FAMILY HISTORY: Mother from lung cancer; father health history unknown ALLERGIES: Please see below. REVIEW OF SYSTEMS: 10 comprehensive systems reviewed and negative except for back pain associated with "hard mattress" per patient and easy bruisabiltiy when she "hits herself". HOME MEDICATIONS: Please see below. PHYSICAL EXAMINATION: VITAL SIGNS: as below GENERAL APPEARANCE: pleasant, sleepy, NAD AAOx3 HEENT: photophobic, no JVD, no adenopathy, neck supple CARDIOVASCULAR: HRRR no murmur LUNGS: CTA no W/R/R ABDOMEN: not examined MUSCULOSKELETAL: able to perform sit up from supine to seated position on bed; moves all four extremities SKIN: various aged bruises to upper arms EXTREMITIES: no edema NEUROLOGICAL: CN 3-12 intact, no gross motor or sensory deficits LABORATORY DATA: See below. ASSESSMENT: 38 yo healthy female with mildly elevated blood sugar and question of diabetes, no signs of anemia Patient denies diabetes but medication list shows metformen . Elevated WBC . PLAN: 1. psychiatry treatment/medication per attending 2. Check HgA1c (add to blood in lab) 3. will continue to follow blood sugars peripherally, otherwise no other medication changes at this time. 4. monitor WBC and trend - no signs of infection Vital Signs Vital Signs Date Time Temp Pulse Resp B/P (MAP) Pulse Ox O2 Delivery O2 Flow Rate FiO2 05/03/19 06:46 97.3 90 14 135/74 (94) 05/02/19 22:45 99 05/02/19 16:34 Room Air Laboratory Data Labs 24H Laboratory Tests 2 05/03/19 09:16: Bedside Glucose (Misc Panel) 185H 05/03/19 15:44: CBC/BMP Laboratory Tests 05/02/19 15:14 Red Blood Count 5.37, Mean Corpuscular Volume 82.7, Mean Corpuscular Hemoglobin 27.9, Mean Corpuscular Hemoglobin Concent 33.8, Red Cell Distribution Width 13.9 Home Medications Scheduled Alpha Lipoic Acid (Alpha Lipoic Acid) 600 Mg Capsule, 600 MG PO DAILY Atorvastatin Calcium (Atorvastatin Calcium) 20 Mg Tablet, 20 MG PO DAILY Bupropion HCl (Bupropion HCl Sr) 150 Mg Tab.er.12h, 150 MG PO DAILY Cefuroxime Axetil (Cefuroxime) 500 Mg Tablet, 500 MG PO BID TO TAKE X 10 DAYS. STARTED ON 04/25/19. Cholecalciferol (Vitamin D3) (Vitamin D3) 1,000 Unit Tablet, 1,000 UNIT PO DAILY Clonidine Hcl (Clonidine HCl) 0.1 Mg Tablet, 0.1 MG PO QHS Levocetirizine Dihydrochloride (Levocetirizine Dihydrochloride) 5 Mg Tablet, 5 MG PO QHS Metformin HCl (Metformin HCl) 500 Mg Tablet, 500 MG PO BID Multivitamin (Multivitamins) 1 Each Capsule, 1 CAP PO DAILY Omeprazole (Omeprazole) 20 Mg Capsule.dr, 20 MG PO BID Paliperidone Palmitate (Invega Sustenna) 117 Mg/0.75 Ml Syringe, 117 MG IM Q30D PATIENT STATES SHE GOT LAST INJECTION SOMETIME IN MARCH Pyridoxine HCl (Vitamin B6) (Vitamin B-6) 100 Mg Tablet, 200 MG PO DAILY Thiamine Mononitrate (Vit B1) (Vitamin B-1) 100 Mg Tablet, 100 MG PO DAILY Scheduled PRN Fluticasone Propionate (Fluticasone Propionate) 16 Gm [place].susp, 2 SPRAY NARES DAILY PRN for BLANQUITA Naproxen Sod/Diphenhydramine (Aleve Pm Caplet) 1 Each Tablet, 1 TAB PO QHS PRN for SLEEP Miscellaneous Medications [Pharmacy Comment] PATIENT UNAWARE OF LAST DOSES FOR ALL MEDICATIONS. Allergies Coded Allergies: Penicillins (Verified Allergy, Unknown, 05/02/19) acetaminophen (Verified Allergy, Unknown, 05/02/19) latex (Verified Allergy, Unknown, 05/02/19) lurasidone (Verified Allergy, Unknown, 05/02/19) oxycodone (Verified Allergy, Unknown, 05/02/19) phenobarbital (Verified Allergy, Unknown, 05/02/19) procaine (Verified Allergy, Unknown, 05/02/19) trazodone (Verified Allergy, Unknown, 05/02/19) A-FIB/CHADSVASC A-FIB History Current/History of A-Fib/PAF?: No Current PO Anticoag Therapy: No ROSE MARIE BURGER DO May 03, 2019 17:00
[2019-05-03 18:11] VITALS: BP 125/68
[2019-05-03] MEDS: cloNIDine 0.1 MG TAB PO SCH (21:14)
[2019-05-03] MEDS: QUEtiapine FUMARATE 50 MG TAB PO SCH (23:23)
[2019-05-04 07:07] VITALS: BP 112/73
[2019-05-04] MEDS: metFORMIN (GLUCOPHAGE) 500 MG TAB PO SCH ×2 (07:33→17:51)
[2019-05-04] MEDS: OLANZapine ORAL DISINTEGRATING TAB 5MG PO PRN ×3 (07:34→21:55)
[2019-05-04 08:21] LABS: HEMATOCRIT 42.2 % (36.0-47.0); HEMOGLOBIN 14.1 g/dl (12.0-15.5); MEAN CORPUSCULAR HEMOGLOBIN 27.3 pg (27.0-33.0); MEAN CORPUSCULAR HGB CONC 33.4 g/dl (32.0-36.5); MEAN CORPUSCULAR VOLUME 81.6 fl (80.0-96.0); PLATELET COUNT, AUTOMATED 219 10^3/uL (150-450); RED BLOOD COUNT 5.17 10^6/uL (4.00-5.40); WHITE BLOOD COUNT 10.1 10^3/uL (4.0-10.0)
[2019-05-04] MEDS: OMEPRAZOLE 20 MG CAP PO SCH ×2 (09:22→21:36)
[2019-05-04] MEDS: ATORVASTATIN 20 MG TAB PO SCH (09:22)
[2019-05-04] MEDS: BROMOCRIPTINE MESYLATE 2.5 MG TAB PO SCH (09:22)
[2019-05-04] MEDS: THIAMINE 100 MG TAB PO SCH (09:22)
[2019-05-04] MEDS: VITAMIN D 1,000 INTERNATIONAL UNITS TABLET PO SCH (09:22)
[2019-05-04 09:48] LABS: HEMOGLOBIN A1c 6.2 %
--- NOTE | 2019-05-04 10:33 | MHIPNPDOC ---
[facility] Progress Note Progress Note DATE OF SERVICE: 05/04/19 HISTORY: Patient is a 38 -year-old , female, with a history of Bipolar d/o and multiple admissions in past to [facility] for eric who was brought to [facility] by [employer] under 9.45 pear picker order issued by Dr. Bolivar after pt's boyfriend, Marcos Rosas, called her to inform her that pt was "acting bizarre, deulsional, yelling at no one there, going to airport, can't breath" per ED. Marcos contacted by ED and stated pt had been making comments of "madi ramos is putting stuff in their planes... I don't know what... ask their top person... I don't know who he is." Marcos also stated to ED that pt was not sleeping, unable to concentrate, making odd calls to people, wearing his clothes, had pressure speech, was labile, and engaging in bizarre food prep which pt denied." Pt in ED was labile with pressured speech, poor concentration, and tangential thought. She stated multiple times "I want to live" in ED. Per Marcos to ED, he had to place the 2y/o daughter with family/friends due to fear of child's safety due to the pt's bizarre behavior at home. Per ED, pt last got her invega sustenna 117mg im last time in March. VITAL SIGNS: See below. NEW TEST RESULTS: Prolactin - 80.3 elevated; on bromocriptine to decrease and doing well CURRENT MEDICATIONS: See below. MENTAL STATUS EXAMINATION: General Appearance: clean, ds/not appear stated age (older), hospital scrubs/clothing Build: overweight Demeanor: cooperative, pleasant Eye Contact: good Activity: cooperative, calm Behavior: cooperative, pleasant Speech: clear, reg rate/rhythm/volume, spontaneous Mood: euthymic, full Mood "good" Affect: appropriate, euthymic, congruent Thought Process: linear, logical, goal directed Thought Content (Delusions): denies SI, HI, AVH Thought Content (Other): none reported Thought Content (Aggressive): none reported Perception (Hallucinations): none reported Perception (Other): none reported Cognition (Impairment of): none reported Cognition(Intelligence Est.): average Oriented: Awake, Alert, Oriented times three Insight: good Judgment: good Psychosis: Denies DIAGNOSES: 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 Explained to pt yesterday afternoon and again this am during treatment team that I was notified at 1:30pm by Dr. Bolivar who ordered pt pear picker, admitted pt, and gave orders on pt during the night to 911 operator of 05/02-05/03 that her prolactin level was increased although none of staff in ED or IMHU notified nor any labs in full [facility] lab history document that pt has an elevated prolactin or that Dr. Bolivar had stated during admission documentation and orders that her Prolactin level causing pt to continue her invega sustenna with invega sustenna 156mg ordered 05/03am and given at 12:36 on 05/03. I immediately when notified spoke with pt to apologize that invega sustenna was given and stated I would follow her prolactin level with lab draw yesterday that is 80.3 and start her on bromocriptine daily to decrease prolactin and prevent . Pt accepted my apology and was very appreciative of me taking the time to full address her elevated prolactin and treat it along with her mental health appropriately as she denies that Dr. Bolivar ever ordered a Prolactin level despite pt endorsing for the past year nor feeling as if Dr. Bolivar was listening to her c omplaint and managing it effectively and supportively. She stated she felt good that her problems were being full addressed and discussed with her here. States he slept well last night. Feels he is tolerating his medications and they're beneficial. Will initiate abilify 5mg bid for Bipolar d/o with outpatient plan to start abilify maintena in 1month when invega sustenna metabolized from system. She is attending groups and finding them helpful. She denies depression, eric, insomnia, SI/HI, hallucinations, delusions. Pt feels safe here. MANAGEMENT PLAN: continue plan. Bromocriptine daily to bring down elevated prolactin and prevent . Prolactin level 05/06/19 in am ativan 1mg q4hr prn eric/agitation zyprexa 10mg q6hr prn eric/agitation seroquel 50mg qhs abilify 5mg bid bromocriptin 1.25mg daily TIME SPENT: 30 minutes. Vital Signs Vital Signs Date Time Temp Pulse Resp B/P (MAP) Pulse Ox O2 Delivery O2 Flow Rate FiO2 05/04/19 07:07 98.7 91 14 112/73 (86) 05/02/19 22:45 99 05/02/19 16:34 Room Air Laboratory Data 24H Labs Laboratory Tests 2 05/03/19 15:44: Prolactin 80.3 05/04/19 06:30: Bedside Glucose (Misc Panel) 99 05/04/19 07:40: Nucleated Red Blood Cells % (auto) 0.0 CBC/BMP Laboratory Tests 05/04/19 07:40 Red Blood Count 5.17, Mean Corpuscular Volume 81.6, Mean Corpuscular Hemoglobin 27.3, Mean Corpuscular Hemoglobin Concent 33.4, Red Cell Distribution Width 13.9 Current Medications Current Medications Atorvastatin Calcium (Lipitor) 20 mg DAILY PO Last administered on 05/03/19at 09:13; Start 05/03/19 at 09:00 Bromocriptine Mesylate (Parlodel) 2.5 mg DAILY PO ; Start 05/04/19 at 09:00 Bupropion HCl (Zyban, Wellbutrin Sr) 150 mg DAILY PO Last administered on 05/03/19at 09:13; Start 05/03/19 at 09:00; Stop 05/03/19 at 10:18; Status DC Clonidine HCl (Catapres) 0.1 mg QHS PO Last administered on 05/03/19at 21:14; Start 05/02/19 at 21:00 Fluticasone Propionate (Flonase 0.05% Nasal [place]) 2 spray DAILYPRN PRN NARES CONGESTION; Start 05/02/19 at 21:30 Home Med (Med Rec Complete!) ASDIRECTED XX ; Start 05/02/19 at 20:00; Stop 05/02/19 at 20:02; Status DC Lorazepam (Ativan) 1 mg Q4HP PRN PO ANXIETY Last administered on 05/02/19at 22:21; Start 05/02/19 at 21:45 Metformin HCl (Glucophage) 500 mg BID@0800,1800 PO Last administered on 05/04/19at 07:33; Start 05/03/19 at 08:00 Nicotine (Nicoderm Cq 7 Mg) 1 patch DAILY PRN TD craving; Start 05/02/19 at 21:45 Olanzapine (ZyPREXA ZYDIS) 10 mg Q6HP PRN PO ANXIETY/AGITATION Last administered on 05/04/19at 07:34; Start 05/03/19 at 10:30 Omeprazole (PriLOSEC) 20 mg BID PO Last administered on 05/03/19at 21:14; Start 05/02/19 at 21:00 Quetiapine Fumarate (SEROquel) 50 mg QHS PO Last administered on 05/03/19at 23:23; Start 05/02/19 at 21:00 Thiamine HCl (Thiamine HCl) 100 mg DAILY PO Last administered on 05/03/19 09:13; Start 05/03/19 at 09:00 Vitamin D (Vitamin D) 1,000 units DAILY PO Last administered on 05/03/19at 09:13; Start 05/03/19 at 09:00 Allergies Coded Allergies: Penicillins (Verified Allergy, Unknown, 05/02/19) acetaminophen (Verified Allergy, Unknown, 05/02/19) latex (Verified Allergy, Unknown, 05/02/19) lurasidone (Verified Allergy, Unknown, 05/02/19) oxycodone (Verified Allergy, Unknown, 05/02/19) phenobarbital (Verified Allergy, Unknown, 05/02/19) procaine (Verified Allergy, Unknown, 05/02/19) trazodone (Verified Allergy, Unknown, 05/02/19) MARY NATION DO May 04, 2019 9:34 am
--- NOTE | 2019-05-04 13:14 | IPNPDOC ---
Text Note Date of Service 05/04/19. NOTE S: Patient not seen. Labs and plan of care reviewed O: Vitals as below Item Value Date Time Estimated Mean Plasma Glucose 131 MG/DL H 05/04/19 0740 Hemoglobin A1c 6.2 % 05/04/19 0740 White Blood Count 10.1 10^3/uL H 05/04/19 0740 White Blood Count 15.2 10^3/uL H 05/02/19 1514 Hemoglobin 14.1 g/dl 05/04/19 0740 Hematocrit 42.2 % 05/04/19 0740 Platelet Count 219 10^3/uL 05/04/19 0740 ASSESSMENT: 38 yo healthy female with leukocytosis, mildly elevated blood sugar and question of diabetes, no signs of anemia Patient denies diabetes but medication list shows metformin . PLAN: 1. psychiatry treatment/medication per attending 2. continue with metformen as blood sugars and A1c well controlled. 3. WBC improved. Will sign off on case. Thank you for allowing the hospitalist to participate in her care. Please call if further assistance needed. VS,Hamilton, I+O VS, Hamilton, I+O Laboratory Tests 05/04/19 07:40 Red Blood Count 5.17, Mean Corpuscular Volume 81.6, Mean Corpuscular Hemoglobin 27.3, Mean Corpuscular Hemoglobin Concent 33.4, Red Cell Distribution Width 13.9 Vital Signs Date Time Temp Pulse Resp B/P (MAP) Pulse Ox O2 Delivery O2 Flow Rate FiO2 05/04/19 07:07 98.7 91 14 112/73 (86) 05/02/19 22:45 99 05/02/19 16:34 Room Air ROSE MARIE BURGER DO May 04, 2019 13:14
[2019-05-04 18:13] VITALS: BP 128/78
[2019-05-04] MEDS: cloNIDine 0.1 MG TAB PO SCH (21:36)
[2019-05-04] MEDS: QUEtiapine FUMARATE 50 MG TAB PO SCH (22:59)
[2019-05-05] MEDS: LORazepam 1 MG TAB PO PRN ×2 (01:05→22:19)
[2019-05-05 06:36] VITALS: BP 136/72
[2019-05-05] MEDS: OMEPRAZOLE 20 MG CAP PO SCH ×2 (08:30→21:09)
[2019-05-05] MEDS: THIAMINE 100 MG TAB PO SCH (08:30)
[2019-05-05] MEDS: BROMOCRIPTINE MESYLATE 2.5 MG TAB PO SCH (08:30)
[2019-05-05] MEDS: metFORMIN (GLUCOPHAGE) 500 MG TAB PO SCH ×2 (08:30→17:07)
[2019-05-05] MEDS: VITAMIN D 1,000 INTERNATIONAL UNITS TABLET PO SCH (08:30)
[2019-05-05] MEDS: ATORVASTATIN 20 MG TAB PO SCH (08:30)
[2019-05-05 19:16] VITALS: BP 132/74
[2019-05-05] MEDS: cloNIDine 0.1 MG TAB PO SCH (21:09)
[2019-05-05] MEDS: QUEtiapine FUMARATE 50 MG TAB PO SCH (23:49)
[2019-05-06 06:56] VITALS: BP 140/79
[2019-05-06] MEDS: metFORMIN (GLUCOPHAGE) 500 MG TAB PO SCH ×2 (07:32→17:18)
[2019-05-06] MEDS: BROMOCRIPTINE MESYLATE 2.5 MG TAB PO SCH (08:11)
[2019-05-06] MEDS: VITAMIN D 1,000 INTERNATIONAL UNITS TABLET PO SCH (08:11)
[2019-05-06] MEDS: THIAMINE 100 MG TAB PO SCH (08:11)
[2019-05-06] MEDS: OMEPRAZOLE 20 MG CAP PO SCH ×2 (08:11→21:17)
[2019-05-06] MEDS: ATORVASTATIN 20 MG TAB PO SCH (08:11)
--- NOTE | 2019-05-06 09:07 | MHIPN ---
DATE OF SERVICE: 05/05/2019 The patient today states, "I'm doing better because I'm getting my sleep." States, "But I keep getting flashbacks." She says that she keeps thinking about things that happened to her and then tells herself, well, those things did happen. MENTAL STATUS EXAM: She is alert and oriented times three. Eye contact is fairly good. She is verbally spontaneous. There is no formal thought disorder noted. Her mood is "better." Affect is restricted but appropriate to her mood. any psychotic. Today, she was denying suicidal or homicidal ideation. Concentration is fair. Insight and judgment poor. DIAGNOSES: Bipolar disorder type 1, manic. Anxiety disorder. TREATMENT PLAN: At this point, we will continue to monitor the patient. We will continue stabilization of her mood for further titration of her medications, as indicated.
[2019-05-06 18:24] VITALS: BP 131/83
[2019-05-06 21:17] VITALS: BP 133/81
[2019-05-06] MEDS: QUEtiapine FUMARATE 50 MG TAB PO SCH (21:17)
[2019-05-06] MEDS: cloNIDine 0.1 MG TAB PO SCH (21:17)
[2019-05-06] MEDS: LORazepam 1 MG TAB PO PRN (21:17)
--- NOTE | 2019-05-07 00:56 | IPN ---
DATE: 05/06/2019 The patient today states, "I'm not as bad." She says she has been sleeping good. She has no complaints. MENTAL STATUS EXAMINATION: She is alert and oriented times three. Eye contact is fair. Psychomotor activity is normal. There is no formal thought disorder noted. Speech is less pressured. She says her mood is okay. Affect is full range and appropriate. I am not eliciting any delusions today. She is not suicidal or homicidal. Concentration is fair. Insight and judgment are fair. DIAGNOSES: 1. Bipolar disorder type I, manic. 2. Anxiety disorder. TREATMENT AND PLAN: At this point the patient seems to be improving. We will continue to monitor the patient for continued stabilization of her mood and we will continue to titrate her medications as indicated.
[2019-05-07 06:52] VITALS: BP 110/58
[2019-05-07] MEDS: metFORMIN (GLUCOPHAGE) 500 MG TAB PO SCH (07:53)
[2019-05-07] MEDS: VITAMIN D 1,000 INTERNATIONAL UNITS TABLET PO SCH (08:22)
[2019-05-07] MEDS: ATORVASTATIN 20 MG TAB PO SCH (08:22)
[2019-05-07] MEDS: OMEPRAZOLE 20 MG CAP PO SCH (08:22)
[2019-05-07] MEDS: BROMOCRIPTINE MESYLATE 2.5 MG TAB PO SCH (08:22)
[2019-05-07] MEDS: THIAMINE 100 MG TAB PO SCH (08:22)
[2019-05-07] MEDS ORDERED: ABIL1TAB11 PO ×2 (10:10→10:12)
[2019-05-07] MEDS ORDERED: QUET5TAB PO (10:10)
[2019-05-07] MEDS ORDERED: VIST50CA PO (10:10)
--- NOTE | 2019-05-07 10:13 | MHDSPDOC ---
[facility] Discharge Summary Discharge Summary DATE OF ADMISSION: May 02, 2019 at 7:03 pm DATE OF DISCHARGE: May 07, 2019 DISCHARGE DIAGNOSES: Mood d/o secondary to elevated prolactin anxiety d/o OCD by history REASON FOR ADMISSION: Patient is a 38 -year-old , female, with a history of Bipolar d/o and multiple admissions in past to [facility] for eric who was brought to [facility] by [employer] under 9.45 pick up and delivery driver order issued by Dr. Bolivar after pt's boyfriend, Marcos Rosas, called her to inform her that pt was "acting bizarre, deulsional, yelling at no one there, going to airport, can't breath" per ED. P alinl contacted by ED and stated pt had been making comments of "madi ramos is putting stuff in their planes... I don't know what... ask their top person... I don't know who he is." Marcos also stated to ED that pt was not sleeping, unable to concentrate, making odd calls to people, wearing his clothes, had pressure speech, was labile, and engaging in bizarre food prep which pt denied." Pt in ED was labile with pressured speech, poor concentration, and tangential thought. She stated multiple times "I want to live" in ED. Per Marcos to ED, he had to place the 2y/o daughter with family/friends due to fear of child's safety due to the pt's bizarre behavior at home. Per ED, pt last got her invega sustenna 117mg im last time in March. CONSULTANTS INVOLVED: none TEST RESULTS: Prolactin - 80.3 elevated; on bromocriptine to decrease and doing well TREATMENT AND PROGRESS ON THE UNIT : Pt was admitted to [facility], seen for psychiatric assessment and administered invega sustenna 156mg im as continued for outpatient medications. Then only after administration of invega sustenna was notified that pt has elevated prolactin level even thought Dr. Bolivar admitted the pt and gave orders on her on admission, is Dr. Bolivar's outpatient, and never notified ED nor [facility] staff about elevated prolactin level, nor is there any documentation of notification of elevated prolactin and any of the chart records or labs. Explained to the pt that her prolactin level was increased according to Dr. Bolivar although pt denies any previous outpatient lab work and no documentation in records of prolactin level in record. Apologized to pt that invega sustenna but information of elevated was not known on admission which pt understood and excepted. Explained to pt would get her prolactin level here and prior d/c to monitor and start bromocriptin 1.25mg daily to decrease prolactin and prevent which she was appreciative of very much for the help. She was started on abilify 5mg bid for bipolar d/o for plan abilify maintena outpatient and seroquel 50mg qhs for insomnia. She was provided zyprexa 10mg q6hr prn eric/agitation/anxiety. Pt found her medications beneficial and tolerated them well. She attended groups daily during her stay. Her symptoms improved with treatment. On day of discharge she denied depression, anxiety, insomnia, SI/HI, hallucinations, delusions. She was discharged home after family meeting with her fiance with follow-up at [facility], Dr. Bolivar. She felt safe for discharge. DISCHARGE ASSESSMENT: Pt seen and states that she feels good today and is looking forward to being discharged home today. Per 05/04/2019, "explained to pt yesterday afternoon and again this am during treatment team that I was notified at 1:30pm by Dr. Bolivar who ordered pt pick up and delivery driver, admitted pt, and gave orders on pt during the night to combo welder of 05/02-05/03 that her prolactin level was increased although none of staff in ED or IMHU notified nor any labs in full [facility] lab history document that pt has an elevated prolactin or that Dr. Bolivar had stated during admission documentation and orders that her Prolactin level causing pt to continue her invega sustenna with invega sustenna 156mg ordered 05/03am and given at 12:36 on 05/03. I immediately when notified spoke with pt to apologize that invega sustenna was given and stated I would follow her prolactin level with lab draw yesterday that is 80.3 and start her on bromocriptine daily to decrease prolactin and prevent . Pt accepted my apology and was very appreciative of me taking the time to full address her elevated prolactin and treat it along with her mental health appropriately as she denies that Dr. Bolivar ever ordered a Prolactin level despite pt endorsing for the past year nor feeling as if Dr. Bolivar was listening to her complaint and managing it effectively and supportively. She stated she felt good that her problems were being full addressed and discussed with her here." States he slept well last night. Feels she's is tolerating her medications and they're beneficial. Is tolerating and finding abilify beneficial. She is attending groups and finding them helpful. She denies depression, eric, anxiety, insomnia, SI/HI, hallucinations, delusions. Pt feels safe to be discharged home with her boyfriend. MENTAL STATUS EXAMINATION ON DISCHARGE: General Appearance: clean, ds/not appear stated age (older), hospital scrubs/clothing Build: overweight Demeanor: cooperative, pleasant Eye Contact: good Activity: cooperative, calm Behavior: cooperative, pleasant Speech: clear, reg rate/rhythm/volume, spontaneous Mood: euthymic, full Mood "good" Affect: appropriate, euthymic, congruent Thought Process: linear, logical, goal directed Thought Content (Delusions): denies SI, HI, AVH Thought Content (Other): none reported Thought Content (Aggressive): none reported Perception (Hallucinations): none reported Perception (Other): none reported Cognition (Impairment of): none reported Cognition(Intelligence Est.): average Oriented: Awake, Alert, Oriented times three Insight: good Judgment: good Psychosis: Denies MEDICATIONS ON DISCHARGE: seroquel 50mg qhs abilify 5mg bid PLAN/FOLLOWUP ARRANGEMENTS: D/c home with follow-up at [facility] Dr. Bolivar. F/u lab slip for prolactin level in 2wks. The amount of time spent in the coordination of care for this patient was approximately 30 minutes. Vital Signs/I&Os Vital Signs Date Time Temp Pulse Resp B/P (MAP) Pulse Ox O2 Delivery O2 Flow Rate FiO2 05/07/19 06:52 97.8 101 14 110/58 (75) 05/02/19 22:45 99 05/02/19 16:34 Room Air Medications Scheduled Alpha Lipoic Acid (Alpha Lipoic Acid) 600 Mg Capsule, 600 MG PO DAILY, (Reported) Aripiprazole (Abilify) 5 Mg Tablet, 5 MG PO BID for schizoaffective d/o, #20 Atorvastatin Calcium (Atorvastatin Calcium) 20 Mg Tablet, 20 MG PO DAILY, (Reported) Cefuroxime Axetil (Cefuroxime) 500 Mg Tablet, 500 MG PO BID, (Reported) TO TAKE X 10 DAYS. STARTED ON 04/25/19. Cholecalciferol (Vitamin D3) (Vitamin D3) 1,000 Unit Tablet, 1,000 UNIT PO DAILY, (Reported) Clonidine Hcl (Clonidine HCl) 0.1 Mg Tablet, 0.1 MG PO QHS, (Reported) Levocetirizine Dihydrochloride (Levocetirizine Dihydrochloride) 5 Mg Tablet, 5 MG PO QHS, (Reported) Metformin HCl (Metformin HCl) 500 Mg Tablet, 500 MG PO BID, (Reported) Multivitamin (Multivitamins) 1 Each Capsule, 1 CAP PO DAILY, (Reported) Omeprazole (Omeprazole) 20 Mg Capsule.dr, 20 MG PO BID, (Reported) Pyridoxine HCl (Vitamin B6) (Vitamin B-6) 100 Mg Tablet, 200 MG PO DAILY, (Reported) Quetiapine Fumarate (Quetiapine Fumarate) 50 Mg Tablet, 50 MG PO QHS for schizoaffective, #10 Thiamine Mononitrate (Vit B1) (Vitamin B-1) 100 Mg Tablet, 100 MG PO DAILY, (Reported) Scheduled PRN Fluticasone Propionate (Fluticasone Propionate) 16 Gm [employer].susp, 2 SPRAY NARES DAILY PRN for BLANQUITA, (Reported) Hydroxyzine Pamoate (Vistaril) 50 Mg Capsule, 50 MG PO Q6-8HP PRN for ANXIETY/AGITATION, #30 Naproxen Sod/Diphenhydramine (Aleve Pm Caplet) 1 Each Tablet, 1 TAB PO QHS PRN for SLEEP, (Reported) Miscellaneous Medications [Pharmacy Comment] , (Reported) PATIENT UNAWARE OF LAST DOSES FOR ALL MEDICATIONS. Allergies Coded Allergies: Penicillins (Verified Allergy, Unknown, 05/02/19) acetaminophen (Verified Allergy, Unknown, 05/02/19) latex (Verified Allergy, Unknown, 05/02/19) lurasidone (Verified Allergy, Unknown, 05/02/19) oxycodone (Verified Allergy, Unknown, 05/02/19) phenobarbital (Verified Allergy, Unknown, 05/02/19) procaine (Verified Allergy, Unknown, 05/02/19) trazodone (Verified Allergy, Unknown, 05/02/19) MARY NATION DO May 07, 2019 10:13
== END 2019-05-07 14:40 | disposition home or self-care (01) | DRG 884 ==
LOC: M ED 14:34 → M ED INP 19:03 → M PSY 21:34
PROVIDERS: ADMIT Psychiatry & Neurology Psychiatry; ATTEND Psychiatry & Neurology Psychiatry
DX: F06.30 Mood disorder due to known physiological condition, unspecified (principal); F41.9 Anxiety disorder, unspecified; F42.9 Obsessive-compulsive disorder, unspecified; R85.1 Abnormal level of hormones in specimens from digestive organs and abdominal cavity; Z79.899 Other long term (current) drug therapy; Z88.0 Allergy status to penicillin; Z91.040 Latex allergy status; Z88.8 Allergy status to other drugs, medicaments and biological substances

== ENCOUNTER → 2019-05-21 | Outpatient (REF) | payer MEDICARE, MEDICAID ==
[~2019-05-21] MED LIST changes: +ABIL1TAB11 PO; +ALEV1TAB PO; +ALPH600C PO; +ATOR1TAB21 PO; +BUPR15TASR PO; +CEFU50TA PO; +CLON0.2T PO; +D31000TA PO; +FLUTISP NARES; +INVE117I IM; +LEVOTAB10 PO; +METF500T13 PO; +MULTCAP PO; +OMEP20CA4 PO; +PHARMACY COMMENT; +QUET5TAB PO; +VIST50CA PO; +VITA100T28 PO; +VITA100T77 PO
== END ==
LOC: M LABDRAWP 11:17
PROVIDERS: ATTEND Psychiatry & Neurology Psychiatry
DX: F31.74 Bipolar disorder, in full remission, most recent episode manic (principal); F63.9 Impulse disorder, unspecified
CPT/HCPCS: 36415; 84146; 96372; G0463

== ENCOUNTER → 2019-06-28 | Outpatient (CLI) | payer MEDICARE, MEDICAID ==
[~2019-06-28] MED LIST changes: +HYDR1TAB33 PO; -HYDRO50TAB PO
--- NOTE | 2019-06-28 14:58 | REPMRS ---
Patient History The patient states she had a clinical breast exam in 03/2019. Family history of breast cancer at age 50 or over in mother, breast cancer at age 50 or over in maternal aunt, prostate cancer at age 50 or over in paternal uncle, unknown cancer at age 50 or over in maternal uncle. Taking hormonal contraceptives for 2 years 6 months. Digital Woman Screen Mammo: June 28, 2019 - Exam #: [id number] Bilateral CC and MLO view(s) were taken. Technologist: Diana Hameed, Technologist No prior studies available for comparison. FINDINGS: There are scattered fibroglandular densities. There is no evidence of dominant mass, architectural distortion, or grouped microcalcification typical of malignancy. 3-D tomosynthesis shows no additional findings. Assessment: BI-RADS/ACR category 1 mammogram. Negative Mammogram. Recommendation Routine screening mammogram of both breasts in 1 year (for women over age 40). This patient's Lifetime Breast Cancer RIsk is estimated at 24.4 %. This mammogram was interpreted with the aid of an FDA-approved computer-aided dectection system. Electronically Signed By: Alexi Monterroso MD 06/28/19 [id number]
== END ==
LOC: M WHC 11:01
PROVIDERS: ATTEND Nurse Practitioner Women's Health
DX: Z12.31 Encounter for screening mammogram for malignant neoplasm of breast (principal); Z80.3 Family history of malignant neoplasm of breast; Z92.0 Personal history of contraception; F31.74 Bipolar disorder, in full remission, most recent episode manic

== ENCOUNTER → 2019-09-25 | Outpatient (REF) | payer MEDICARE, MEDICAID ==
[2019-09-25 16:45] LABS: BASO # 0.1 10^3/uL (0.0-0.2); BASO % 0.6 % (0.0-1.0); EOS # 0.2 10^3/uL (0.0-0.5); EOS % 1.7 % (0.0-3.0); HEMATOCRIT 45.7 % (36.0-47.0); HEMOGLOBIN 14.7 g/dl (12.0-15.5); LYMPH # 1.9 10^3/uL (1.5-5.0); MEAN CORPUSCULAR HEMOGLOBIN 27.2 pg (27.0-33.0); MEAN CORPUSCULAR HGB CONC 32.2 g/dl (32.0-36.5); MEAN CORPUSCULAR VOLUME 84.5 fl (80.0-96.0); MONO # 0.6 10^3/uL (0.0-0.8); MONO % 6.2 % (0.0-5.0); NEUTROPHILS # 7.3 10^3/uL (1.5-8.5); NEUTROPHILS % 72.2 % (36.0-66.0); PLATELET COUNT, AUTOMATED 174 10^3/uL (150-450); RED BLOOD COUNT 5.41 10^6/uL (4.00-5.40); WHITE BLOOD COUNT 10.1 10^3/uL (4.0-10.0)
[2019-09-25 16:49] LABS: ALBUMIN 3.8 GM/DL (3.2-5.2); ALT/SGPT 21 U/L (12-78); BILIRUBIN,TOTAL 0.6 MG/DL (0.2-1.0); BLOOD UREA NITROGEN 13 MG/DL (7-18); CALCIUM LEVEL 8.9 MG/DL (8.5-10.1); CARBON DIOXIDE LEVEL 28 MEQ/L (21-32); CHLORIDE LEVEL 107 MEQ/L (98-107); CHOLESTEROL LEVEL 120 MG/DL (<200); CREATININE FOR GFR 0.87 MG/DL (0.55-1.30); FREE T4 1.03 NG/DL (0.76-1.46); GLOMERULAR FILTRATION RATE > 60.0 (>60); GLUCOSE, FASTING 86 MG/DL (70-100); HDL CHOLESTEROL 48 MG/DL (>40); LDL CHOLESTEROL 53 MG/DL (<100); NON-HDL-C 72 MG/DL; POTASSIUM SERUM 4.3 MEQ/L (3.5-5.1); SODIUM LEVEL 140 MEQ/L (136-145); TOTAL PROTEIN 6.8 GM/DL (6.4-8.2); TRIGLYCERIDES LEVEL 93 MG/DL (<150)
[2019-09-25 16:51] LABS: PROLACTIN 16.8 NG/ML; TOTAL 25(OH) VITAMIN D 56.3 NG/ML (30.0-100.0)
[2019-09-25 16:53] LABS: HEMOGLOBIN A1c 5.6 %
== END ==
LOC: M LAB REF 16:12
PROVIDERS: ATTEND Nurse Practitioner Family
DX: Z13.9 Encounter for screening, unspecified (principal); R89.1 Abnormal level of hormones in specimens from other organs, systems and tissues; E78.5 Hyperlipidemia, unspecified; Z11.9 Encounter for screening for infectious and parasitic diseases, unspecified; Z79.899 Other long term (current) drug therapy

== ENCOUNTER → 2020-01-28 | Outpatient (CLI) | payer MEDICARE, MEDICAID ==
[~2020-01-28] MED LIST changes: +OMEP1CAP73 PO; -OMEP20CA4 PO; +PROHANCE 279.3MG/ML 15ML VIAL (A9576) As Ordered ONE; +PROHANCE 279.3MG/ML 5ML VIAL (A9576) As Ordered ONE; +QUET100T2 PO; -QUET1TAB8 PO
--- NOTE | 2020-01-28 12:55 | REP ---
MRI BILATERAL BREASTS WITH AND WITHOUT CONTRAST: FAMILY HISTORY: Breast cancer. [facility] lifetime risk of breast cancer 24.4%. Comparison mammogram 06/28/2019. TECHNIQUE: Multiple sequences obtained in the axial, coronal, and sagittal planes prior to and following the intravenous administration of 19 mL ProHance. Images are evaluated in the [employer] software including axial T1 fat sat dynamic imaging, color overlay images, MIP reconstruction images and CAD images. There is mild to moderate bilateral fibroglandular tissue scattered bilaterally. No significant cystic changes are seen in either breast. No axillary adenopathy is seen in either breast. There is no suspicious enhancing mass or morphologic abnormality bilaterally. IMPRESSION: BIRADS category 1 negative bilateral breast MRI. No suspicious enhancing mass or morphologic abnormality. Yearly supplemental screening MRI of the breasts is recommended for patients with and elevated lifetime risk of breast cancer 20% or greater, in addition to annual screening mammography. Electronically Signed by Jayro Scott MD 01/28/2020 06:08 P
== END ==
LOC: M RAD 09:22
PROVIDERS: ATTEND Nurse Practitioner Women's Health
DX: Z80.3 Family history of malignant neoplasm of breast (principal); Z12.31 Encounter for screening mammogram for malignant neoplasm of breast
CPT/HCPCS: A9576; C8908

== ENCOUNTER → 2020-03-07 | Outpatient (REF) | payer MEDICARE, MEDICAID ==
[~2020-03-07] MED LIST changes: -PROHANCE 279.3MG/ML 15ML VIAL (A9576) As Ordered ONE; -PROHANCE 279.3MG/ML 5ML VIAL (A9576) As Ordered ONE
[2020-03-07 13:28] LABS: BASO # 0.1 10^3/uL (0.0-0.2); BASO % 0.5 % (0.0-1.0); EOS # 0.2 10^3/uL (0.0-0.5); EOS % 1.8 % (0.0-3.0); HEMATOCRIT 46.9 % (36.0-47.0); HEMOGLOBIN 15.5 g/dl (12.0-15.5); LYMPH # 2.1 10^3/uL (1.5-5.0); LYMPH % 18.9 % (24.0-44.0); MEAN CORPUSCULAR HEMOGLOBIN 28.8 pg (27.0-33.0); MONO # 0.7 10^3/uL (0.0-0.8); MONO % 6.3 % (0.0-5.0); NEUTROPHILS # 8.1 10^3/uL (1.5-8.5); NEUTROPHILS % 72.1 % (36.0-66.0); PLATELET COUNT, AUTOMATED 196 10^3/uL (150-450); RED BLOOD COUNT 5.39 10^6/uL (4.00-5.40); WHITE BLOOD COUNT 11.2 10^3/uL (4.0-10.0)
[2020-03-07 13:39] LABS: ALBUMIN 3.4 GM/DL (3.2-5.2); ALT/SGPT 37 U/L (12-78); BILIRUBIN,TOTAL 0.6 MG/DL (0.2-1.0); BLOOD UREA NITROGEN 8 MG/DL (7-18); CALCIUM LEVEL 8.7 MG/DL (8.5-10.1); CARBON DIOXIDE LEVEL 28 MEQ/L (21-32); CHLORIDE LEVEL 108 MEQ/L (98-107); CHOLESTEROL LEVEL 128 MG/DL (<200); CREATININE FOR GFR 0.67 MG/DL (0.55-1.30); GLOMERULAR FILTRATION RATE > 60.0 (>60); GLUCOSE, FASTING 79 MG/DL (70-100); HDL CHOLESTEROL 50 MG/DL (>40); LDL CHOLESTEROL 63 MG/DL (<100); NON-HDL-C 78 MG/DL; POTASSIUM SERUM 4.4 MEQ/L (3.5-5.1); SODIUM LEVEL 140 MEQ/L (136-145); TOTAL PROTEIN 6.2 GM/DL (6.4-8.2); TRIGLYCERIDES LEVEL 76 MG/DL (<150)
[2020-03-07 13:43] LABS: HEMOGLOBIN A1c 5.8 %
== END ==
LOC: M LAB REF 13:04
PROVIDERS: ATTEND Nurse Practitioner Family
DX: M25.561 Pain in right knee (principal); Z13.9 Encounter for screening, unspecified; E78.5 Hyperlipidemia, unspecified; E11.9 Type 2 diabetes mellitus without complications

== ENCOUNTER → 2020-05-27 | Outpatient (REF) | payer MEDICARE, MEDICAID ==
[2020-05-27 12:56] LABS: BASO % 0.4 % (0.0-1.0); EOS # 0.2 10^3/uL (0.0-0.5); EOS % 2.5 % (0.0-3.0); HEMATOCRIT 45.5 % (36.0-47.0); HEMOGLOBIN 14.9 g/dl (12.0-15.5); LYMPH # 2.4 10^3/uL (1.5-5.0); LYMPH % 24.4 % (24.0-44.0); MEAN CORPUSCULAR HEMOGLOBIN 28.3 pg (27.0-33.0); MEAN CORPUSCULAR HGB CONC 32.7 g/dl (32.0-36.5); MEAN CORPUSCULAR VOLUME 86.3 fl (80.0-96.0); MONO # 0.7 10^3/uL (0.0-0.8); MONO % 7.4 % (0.0-5.0); NEUTROPHILS # 6.3 10^3/uL (1.5-8.5); NEUTROPHILS % 64.9 % (36.0-66.0); PLATELET COUNT, AUTOMATED 181 10^3/uL (150-450); RED BLOOD COUNT 5.27 10^6/uL (4.00-5.40); WHITE BLOOD COUNT 9.8 10^3/uL (4.0-10.0)
[2020-05-27 13:25] LABS: ALBUMIN 3.7 GM/DL (3.2-5.2); ALT/SGPT 32 U/L (12-78); BILIRUBIN,TOTAL 0.5 MG/DL (0.2-1.0); BLOOD UREA NITROGEN 14 MG/DL (7-18); CALCIUM LEVEL 8.9 MG/DL (8.5-10.1); CARBON DIOXIDE LEVEL 27 MEQ/L (21-32); CHLORIDE LEVEL 106 MEQ/L (98-107); CHOLESTEROL LEVEL 135 MG/DL (<200); CHOLESTEROL RISK RATIO 2.177 (<5); CREATININE FOR GFR 0.73 MG/DL (0.55-1.30); FREE T4 1.11 NG/DL (0.76-1.46); GLOMERULAR FILTRATION RATE > 60.0 (>60); GLUCOSE, FASTING 88 MG/DL (70-100); HDL CHOLESTEROL 62 MG/DL (>40); LDL CHOLESTEROL 56 MG/DL (<100); NON-HDL-C 73 MG/DL; POTASSIUM SERUM 4.1 MEQ/L (3.5-5.1); SODIUM LEVEL 140 MEQ/L (136-145); TOTAL PROTEIN 6.7 GM/DL (6.4-8.2); TRIGLYCERIDES LEVEL 87 MG/DL (<150)
[2020-05-27 13:49] LABS: HEMOGLOBIN A1c 5.4 %
== END ==
LOC: M LAB REF 12:11
PROVIDERS: ATTEND Nurse Practitioner Family
DX: F31.9 Bipolar disorder, unspecified (principal); F17.210 Nicotine dependence, cigarettes, uncomplicated; Z13.9 Encounter for screening, unspecified; E78.5 Hyperlipidemia, unspecified; E11.9 Type 2 diabetes mellitus without complications

== ENCOUNTER → 2020-09-15 | Outpatient (REF) | payer MEDICARE, MEDICAID | LOC: M LAB REF 11:21 | PROVIDERS: ATTEND Nurse Practitioner Family | DX: M25.579 Pain in unspecified ankle and joints of unspecified foot (principal); R22.43 Localized swelling, mass and lump, lower limb, bilateral; R42 Dizziness and giddiness; F17.210 Nicotine dependence, cigarettes, uncomplicated; Z13.9 Encounter for screening, unspecified; E78.5 Hyperlipidemia, unspecified; E11.9 Type 2 diabetes mellitus without complications ==

== ENCOUNTER → 2020-09-19 | Outpatient (REF) | payer MEDICARE, MEDICAID ==
[2020-09-19 14:40] LABS: MALB URINE SIEMENS 10.2 MG/L; MAU/CREAT RATIO 4.3 MCG/MG (0.0-30.0)
[2020-09-19 18:26] LABS: HEMOGLOBIN A1c 5.3 %
[2020-09-19 18:50] LABS: ALBUMIN 3.6 GM/DL (3.2-5.2); ALT/SGPT 31 U/L (12-78); BILIRUBIN,TOTAL 0.5 MG/DL (0.2-1.0); BLOOD UREA NITROGEN 10 MG/DL (7-18); CALCIUM LEVEL 8.8 MG/DL (8.5-10.1); CARBON DIOXIDE LEVEL 28 MEQ/L (21-32); CHLORIDE LEVEL 108 MEQ/L (98-107); CHOLESTEROL LEVEL 118 MG/DL (<200); CHOLESTEROL RISK RATIO 1.661 (<5); CREATININE FOR GFR 0.64 MG/DL (0.55-1.30); GLOMERULAR FILTRATION RATE > 60.0 (>58); GLUCOSE, FASTING 86 MG/DL (70-100); HDL CHOLESTEROL 71 MG/DL (>40); LDL CHOLESTEROL 37 MG/DL (<100); NON-HDL-C 47 MG/DL; POTASSIUM SERUM 4.6 MEQ/L (3.5-5.1); SODIUM LEVEL 142 MEQ/L (136-145); THYROID STIMULATING HORMONE 0.838 uIU/ML (0.358-3.740); TOTAL 25(OH) VITAMIN D 55.2 NG/ML (30.0-100.0); TOTAL PROTEIN 6.4 GM/DL (6.4-8.2); TRIGLYCERIDES LEVEL 50 MG/DL (<150)
== END ==
LOC: M LAB REF 12:29
PROVIDERS: ATTEND Family Medicine Addiction Medicine
DX: E11.9 Type 2 diabetes mellitus without complications (principal)

== ENCOUNTER → 2021-01-15 | Outpatient (REF) | payer MEDICARE, MEDICAID ==
[~2021-01-15] MED LIST changes: -GLYB5TA PO; +GLYB5TAB6 PO; +QUET50TA3 PO; -QUET5TAB PO
== END ==
LOC: M SFHCWAGY 18:28
PROVIDERS: ATTEND Nurse Practitioner Women's Health
DX: Z12.4 Encounter for screening for malignant neoplasm of cervix (principal)
CPT/HCPCS: 87624; G0123; G0463

== ENCOUNTER → 2021-02-05 | Outpatient (CLI) | payer MEDICARE, MEDICAID ==
--- NOTE | 2021-02-05 13:14 | REPMRS ---
Patient History The patient states she had a clinical breast exam in 01/2021. Family history of breast cancer at age 50 or over in mother, breast cancer at age 50 or over in maternal aunt, prostate cancer at age 50 or over in paternal uncle, unknown cancer at age 50 or over in maternal uncle. Taking hormonal contraceptives for 4 years 6 months. Digital Woman Screen Mammo: February 05, 2021 - Exam #: [id number] Bilateral CC and MLO view(s) were taken. Technologist: Caitlyn Silveira, Technologist Prior study comparison: June 28, 2019, bilateral digital woman screen mammo performed at [facility]. FINDINGS: There are scattered fibroglandular densities. The Volpara volumetric breast density category is:B. There has been no change in the appearance of the mammogram from the prior studies. There is a mild amount of scattered fibroglandular density which is fairly symmetric. There is no interval development of dominant mass, architectural distortion, or grouped microcalcification suggestive of malignancy. 3-D tomosynthesis shows no additional findings. Assessment: BI-RADS/ACR category 1 mammogram. Negative Mammogram. Recommendation Breast MRI of both breasts in 6 months. Routine screening mammogram of both breasts in 1 year (for women over age 40). This patient's [facility] Lifetime Breast Cancer Risk is estimated at 23.9 %. Annual screening Breast MRI scanniing is recommended for patient's whose lifetime risk assessment is over 20%. This mammogram was interpreted with the aid of an FDA-approved computer-aided dectection system. Electronically Signed By: Alexi Monterroso MD 02/05/21 [id number]
== END ==
LOC: M WHC 11:57
PROVIDERS: ATTEND Nurse Practitioner Women's Health
DX: Z12.31 Encounter for screening mammogram for malignant neoplasm of breast (principal); Z80.3 Family history of malignant neoplasm of breast; Z91.89 Other specified personal risk factors, not elsewhere classified; Z92.0 Personal history of contraception

== ENCOUNTER → 2021-03-17 | Outpatient (REF) | payer MEDICARE, MEDICAID ==
[2021-03-17 17:29] LABS: BASO % 0.4 % (0.0-1.0); EOS # 0.2 10^3/uL (0.0-0.5); HEMATOCRIT 44.3 % (36.0-47.0); HEMOGLOBIN 14.1 g/dl (12.0-15.5); LYMPH # 2.2 10^3/uL (1.5-5.0); LYMPH % 29.8 % (24.0-44.0); MEAN CORPUSCULAR HEMOGLOBIN 27.1 pg (27.0-33.0); MEAN CORPUSCULAR HGB CONC 31.8 g/dl (32.0-36.5); MONO # 0.6 10^3/uL (0.0-0.8); MONO % 8.1 % (2.0-8.0); NEUTROPHILS # 4.4 10^3/uL (1.5-8.5); NEUTROPHILS % 59.2 % (36.0-66.0); PLATELET COUNT, AUTOMATED 178 10^3/uL (150-450); RED BLOOD COUNT 5.21 10^6/uL (4.00-5.40); WHITE BLOOD COUNT 7.4 10^3/uL (4.0-10.0)
[2021-03-17 17:43] LABS: ALBUMIN 3.9 GM/DL (3.2-5.2); ALT/SGPT 45 U/L (12-78); BILIRUBIN,TOTAL 0.7 MG/DL (0.2-1.0); BLOOD UREA NITROGEN 11 MG/DL (7-18); CALCIUM LEVEL 9.1 MG/DL (8.5-10.1); CARBON DIOXIDE LEVEL 30 MEQ/L (21-32); CHLORIDE LEVEL 105 MEQ/L (98-107); CHOLESTEROL LEVEL 150 MG/DL (<200); CHOLESTEROL RISK RATIO 2.027 (<5); CREATININE FOR GFR 0.67 MG/DL (0.55-1.30); GLOMERULAR FILTRATION RATE > 60.0 (>58); GLUCOSE, FASTING 87 MG/DL (70-100); HDL CHOLESTEROL 74 MG/DL (>40); LDL CHOLESTEROL 58 MG/DL (<100); NON-HDL-C 76 MG/DL; POTASSIUM SERUM 4.5 MEQ/L (3.5-5.1); SODIUM LEVEL 140 MEQ/L (136-145); TOTAL PROTEIN 6.9 GM/DL (6.4-8.2); TRIGLYCERIDES LEVEL 92 MG/DL (<150)
[2021-03-17 18:02] LABS: TOTAL 25(OH) VITAMIN D 34.4 NG/ML (30.0-100.0)
[2021-03-17 18:03] LABS: HEMOGLOBIN A1c 5.5 %
== END ==
LOC: M LAB REF 16:29
PROVIDERS: ATTEND Nurse Practitioner Family
DX: E11.9 Type 2 diabetes mellitus without complications (principal)

== ENCOUNTER → 2021-04-02 | Outpatient (CLI) | payer MEDICARE, MEDICAID ==
--- NOTE | 2021-04-02 14:50 | REP ---
INDICATION: MARIA TERESA LEG CRAMPING, R/O DVT. COMPARISON: None. TECHNIQUE: Multiple ultrasonographic images of the deep venous structures of the bilateral thigh were obtained from the common femoral vein to the popliteal vein along with Doppler interrogation and color flow Doppler images. FINDINGS: There is no abnormal echogenic material seen within any of the visualized deep venous structures that would suggest acute thrombosis. Coaptation is unremarkable throughout. Doppler interrogation shows an expected response to respiratory variability and augmentation. The color flow images show what appears to be a normal vascular pattern throughout. IMPRESSION: There is no ultrasonographic evidence of deep venous thrombosis involving any of the visualized deep venous structures of the bilateral thigh, as described above. For the record the last image of the exam was obtained at 1:47 p.m., however, the examination is just been submitted for interpretation at 2:46 p.m. <Electronically signed by Geremias Corona > 04/02/21 [id number]
== END ==
LOC: M RAD 13:14
PROVIDERS: ATTEND Nurse Practitioner Family
DX: R25.2 Cramp and spasm (principal); M79.604 Pain in right leg; M79.605 Pain in left leg; F31.74 Bipolar disorder, in full remission, most recent episode manic

== ENCOUNTER → 2021-07-28 | Outpatient (CLI) | payer MEDICARE, MEDICAID ==
[~2021-07-28] MED LIST changes: +PROHANCE 279.3MG/ML 15ML VIAL As Ordered ONE; +PROHANCE 279.3MG/ML 5ML VIAL As Ordered ONE; -QUET50TA3 PO; +QUET50TA4 PO
--- NOTE | 2021-07-28 13:30 | REP ---
INDICATION: DENSE BREAST TISSUE ON MAMMO HIGH RISK. COMPARISON: MRI 01/28/2020, mammogram 02/05/2021. TECHNIQUE: [facility] MRI imaging was performed with a dedicated breast coil. Axial, coronal, and sagittal T1 and T2 weighted scans were obtained with and without fat saturation in the usual fashion. The study includes dynamically acquired post gadolinium-enhanced imaging with image subtraction. Maximum intensity projection and multi planar reformation imaging is included as well. This study is interpreted with the aid of [employer], an FDA approved computer aided detection (CAD) software program, on a dedicated breast MRI workstation. The gadolinium enhancement dose is 20 mL of intravenous ProHance. FINDINGS: There is moderate symmetrical fibroglandular tissue bilaterally. No axillary adenopathy is seen bilaterally. There is not significant cystic change in either breast. There is mild background parenchymal enhancement. There is no suspicious enhancing mass or morphologic abnormality. IMPRESSION: BI-RADS category 1, negative bilateral breast MRI. No suspicious enhancing mass or morphologic abnormality bilaterally. Yearly supplemental screening MRI of the breasts is recommended for patients with an elevated lifetime risk of breast cancer of 20% or greater, in addition to annual screening mammography, staggered every 6 months. <Electronically signed by Jayro Scott > 07/28/21 [id number]
== END ==
LOC: M RAD 10:27
PROVIDERS: ATTEND Nurse Practitioner Women's Health
DX: R92.2 Inconclusive mammogram (principal); Z80.3 Family history of malignant neoplasm of breast; Z91.89 Other specified personal risk factors, not elsewhere classified
CPT/HCPCS: A9576; C8908

== ENCOUNTER 2021-10-06 04:33 | Inpatient (IN) | payer MEDICARE, MEDICAID ==
[~2021-10-06] VITALS: Ht 175.3 cm; Wt 120.8 kg
[~2021-10-06 04:33] MED LIST changes: -LATU40TA PO; +LATU40TA2 PO; -LATU80TA PO; +LATU80TA2 PO; -PROHANCE 279.3MG/ML 15ML VIAL As Ordered ONE; -PROHANCE 279.3MG/ML 5ML VIAL As Ordered ONE
[2021-10-06] MEDS ORDERED: LORazepam 2 MG/ML VIAL IM ONE (07:00)
[2021-10-06] MEDS ORDERED: diphenhydrAMINE 50MG/ML VIAL (J1200) IM ONE (07:00)
[2021-10-06 09:09] LABS: HEMATOCRIT 38.9 % (36.0-47.0); HEMOGLOBIN 13.1 g/dl (12.0-15.5); MEAN CORPUSCULAR HGB CONC 33.7 g/dl (32.0-36.5); MEAN CORPUSCULAR VOLUME 80.2 fl (80.0-96.0); PLATELET COUNT, AUTOMATED 195 10^3/uL (150-450); RED BLOOD COUNT 4.85 10^6/uL (4.00-5.40); WHITE BLOOD COUNT 11.3 10^3/uL (4.0-10.0)
[2021-10-06 09:35] LABS: HCG, SERUM QUALITATIVE NEGATIVE (NEGATIVE)
[2021-10-06 10:00] LABS: ACETAMINOPHEN LEVEL < 2.0 UG/ML (10.0-30.0); ALBUMIN 3.5 GM/DL (3.2-5.2); ALT/SGPT 52 U/L (12-78); BILIRUBIN,DIRECT 0.2 MG/DL (0.0-0.2); BILIRUBIN,TOTAL 0.4 MG/DL (0.2-1.0); BLOOD UREA NITROGEN 6 MG/DL (7-18); CALCIUM LEVEL 8.8 MG/DL (8.5-10.1); CARBON DIOXIDE LEVEL 27 MEQ/L (21-32); CHLORIDE LEVEL 109 MEQ/L (98-107); CREATININE FOR GFR 0.69 MG/DL (0.55-1.30); ETHYL ALCOHOL (ETHANOL) < 0.003 % (0.000-0.010); GLOMERULAR FILTRATION RATE > 60.0 (>58); GLUCOSE, FASTING 120 MG/DL (70-100); POTASSIUM SERUM 4.1 MEQ/L (3.5-5.1); SALICYLATE LEVEL < 1.7 MG/DL (5.0-30.0); SODIUM LEVEL 142 MEQ/L (136-145); THYROID STIMULATING HORMONE 0.367 uIU/ML (0.358-3.740); TOTAL PROTEIN 6.6 GM/DL (6.4-8.2)
[2021-10-06] MEDS ORDERED: IBUPROFEN 600MG TAB PO ONE (17:50)
[2021-10-07 01:48] LABS: AMPHETAMINES LEVEL URINE NEGATIVE (NEGATIVE); BARBITURATES URINE NEGATIVE (NEGATIVE); BENZODIAZEPINES URINE NEGATIVE (NEGATIVE); CANNABINOIDS URINE NEGATIVE (NEGATIVE); COCAINE METABOLITE URINE NEGATIVE (NEGATIVE); METHADONE URINE NEGATIVE (NEGATIVE); OPIATES URINE NEGATIVE (NEGATIVE); PHENCYCLIDINE URINE NEGATIVE (NEGATIVE)
[2021-10-07] MEDS ORDERED: MULTIVITAMINS/MINERALS THERAP 1 TAB PO SCH (09:00)
[2021-10-07] MEDS ORDERED: PYRIDOXINE 50 MG TAB PO SCH (09:00)
[2021-10-07] MEDS ORDERED: VITAMIN D 1,000 INTERNATIONAL UNITS TABLET PO SCH (09:00)
[2021-10-07] MEDS ORDERED: metFORMIN (GLUCOPHAGE) 500MG TAB PO SCH (09:00)
[2021-10-07] MEDS ORDERED: THIAMINE 100 MG TAB PO ONE (09:00)
[2021-10-07] MEDS ORDERED: OMEPRAZOLE 20MG CAP PO SCH (09:00)
[2021-10-07] MEDS ORDERED: CLONI1TA PO (10:14)
[2021-10-07] MEDS ORDERED: LEVOTAB10 PO (10:14)
[2021-10-07] MEDS ORDERED: VIST50CA PO (10:14)
[2021-10-07] MEDS ORDERED: QUET50TA4 PO (10:14)
[2021-10-07] MEDS ORDERED: ATOR1TAB21 PO (10:14)
[2021-10-07] MEDS ORDERED: QUET1TAB17 PO (10:14)
[2021-10-07] MEDS ORDERED: ABIL1INJ2 IM (10:14)
[2021-10-07] MEDS ORDERED: PRAZ1CAP PO (10:14)
[2021-10-07] MEDS ORDERED: OMEP-173 PO (10:14)
[2021-10-07] MEDS ORDERED: QUET100T2 PO (10:14)
[2021-10-07] MEDS ORDERED: PRAZ2CAP PO (10:14)
[2021-10-07] MEDS ORDERED: METH20TA29 PO (10:14)
[2021-10-07] MEDS ORDERED: CLON0.2T PO (10:14)
[2021-10-07] MEDS ORDERED: HOME MED LIST COMPLETE! XX SCH (10:20)
[2021-10-07 14:43] LABS: RSV AMPLIFICATION NEGATIVE (NEGATIVE)
[2021-10-07] MEDS ORDERED: OLANZapine ORAL DISINTEGRATING TAB 5MG PO PRN (15:15)
[2021-10-07] MEDS ORDERED: NICOTINE 14 MG/24 HR TRANSDERMAL TD PRN (15:15)
[2021-10-07] MEDS ORDERED: MAALOX 30 ML SUSP *UDC PO PRN (15:15)
[2021-10-07] MEDS ORDERED: MOM 30ML SUSPENSION UDC PO PRN (15:15)
[2021-10-07] MEDS ORDERED: QUEtiapine FUMARATE 25 MG TAB PO PRN (15:15)
[2021-10-07] MEDS ORDERED: cloNIDine 0.1MG TABLET PO SCH (16:00)
[2021-10-07 17:00] VITALS: BP 149/79
[2021-10-07] MEDS: cloNIDine 0.1MG TABLET PO SCH (17:00)
[2021-10-07] MEDS: ACETAMINOPHEN TAB 650MG DOSE (2X325MG) PO PRN (17:06)
[2021-10-07] MEDS: ATORVASTATIN 20 MG TAB PO SCH (18:35)
[2021-10-07 19:40] LABS: BASO # 0.1 10^3/uL (0.0-0.2); BASO % 0.4 % (0.0-1.0); EOS # 0.2 10^3/uL (0.0-0.5); EOS % 1.8 % (0.0-3.0); HEMATOCRIT 40.5 % (36.0-47.0); HEMOGLOBIN 13.1 g/dl (12.0-15.5); LYMPH # 2.4 10^3/uL (1.5-5.0); LYMPH % 21.2 % (24.0-44.0); MEAN CORPUSCULAR HGB CONC 32.3 g/dl (32.0-36.5); MEAN CORPUSCULAR VOLUME 83.3 fl (80.0-96.0); MONO # 0.8 10^3/uL (0.0-0.8); MONO % 7.1 % (2.0-8.0); NEUTROPHILS # 7.8 10^3/uL (1.5-8.5); NEUTROPHILS % 68.7 % (36.0-66.0); PLATELET COUNT, AUTOMATED 184 10^3/uL (150-450); RED BLOOD COUNT 4.86 10^6/uL (4.00-5.40); WHITE BLOOD COUNT 11.3 10^3/uL (4.0-10.0)
[2021-10-07] MEDS ORDERED: PRAZOSIN 1 MG CAP PO SCH (21:00)
[2021-10-07] MEDS: cloNIDine 0.2 MG TAB PO SCH (21:55)
[2021-10-07] MEDS: PRAZOSIN 1 MG CAP PO SCH (21:55)
[2021-10-07] MEDS: hydrOXYzine 50 MG TAB PO SCH (21:55)
[2021-10-07] MEDS: QUEtiapine FUMARATE 50MG TAB PO SCH (21:55)
[2021-10-08] MEDS: ACETAMINOPHEN TAB 650MG DOSE (2X325MG) PO PRN ×2 (06:28→15:41)
[2021-10-08 06:29] VITALS: BP 128/84
[2021-10-08] MEDS: METHYLPHENIDATE 5 MG TAB PO SCH ×2 (06:59→13:08)
[2021-10-08] MEDS ORDERED: INFLUENZA QUADRIVALENT PF VACCINE 0.5ML SYRINGE IM ONE (09:00)
[2021-10-08] MEDS ORDERED: THIAMINE 100 MG TAB PO SCH (09:00)
[2021-10-08] MEDS: cloNIDine 0.1MG TABLET PO SCH ×2 (09:04→15:41)
[2021-10-08] MEDS: OMEPRAZOLE 20MG CAP PO SCH (09:04)
[2021-10-08] MEDS: MULTIVITAMINS/MINERALS THERAP 1 TAB PO SCH (11:58)
[2021-10-08] MEDS: VITAMIN D 1,000 INTERNATIONAL UNITS TABLET PO SCH (11:59)
[2021-10-08] MEDS: PYRIDOXINE 50 MG TAB PO SCH (12:54)
[2021-10-08] MEDS: ATORVASTATIN 20 MG TAB PO SCH (18:21)
[2021-10-08 18:22] VITALS: BP 124/87
[2021-10-08] MEDS: hydrOXYzine 50 MG TAB PO SCH (22:31)
[2021-10-08] MEDS: PRAZOSIN 1 MG CAP PO SCH (22:32)
[2021-10-08] MEDS: cloNIDine 0.2 MG TAB PO SCH (22:32)
[2021-10-08] MEDS: QUEtiapine FUMARATE 50MG TAB PO SCH (22:32)
[2021-10-09] MEDS: QUEtiapine FUMARATE 100 MG TAB PO PRN (00:02)
[2021-10-09] MEDS: METHYLPHENIDATE 5 MG TAB PO SCH ×2 (06:31→14:07)
[2021-10-09] MEDS: ACETAMINOPHEN TAB 650MG DOSE (2X325MG) PO PRN ×2 (06:32→23:14)
[2021-10-09 06:45] VITALS: BP 142/66
[2021-10-09] MEDS: VITAMIN D 1,000 INTERNATIONAL UNITS TABLET PO SCH (08:18)
[2021-10-09] MEDS: cloNIDine 0.1MG TABLET PO SCH ×2 (08:18→15:28)
[2021-10-09] MEDS: OMEPRAZOLE 20MG CAP PO SCH (08:18)
[2021-10-09] MEDS: MULTIVITAMINS/MINERALS THERAP 1 TAB PO SCH (08:18)
[2021-10-09] MEDS: PYRIDOXINE 50 MG TAB PO SCH (08:18)
[2021-10-09 09:26] VITALS: BP 142/66
[2021-10-09] MEDS: IBUPROFEN 600MG TAB PO PRN ×2 (11:52→17:19)
[2021-10-09] MEDS: CEPACOL LOZENGE PO PRN ×2 (11:52→17:23)
[2021-10-09 16:03] VITALS: BP 140/66
[2021-10-09] MEDS: ATORVASTATIN 20 MG TAB PO SCH (17:16)
[2021-10-09] MEDS: POLYVINYL ALCOHOL OPHTH SOLN 15 ML(LIQUITEARS) OU PRN (20:59)
[2021-10-09] MEDS: RAMELTEON 8 MG TAB (ROZEREM) PO SCH (23:11)
[2021-10-09] MEDS: QUEtiapine FUMARATE 50MG TAB PO SCH (23:11)
[2021-10-09] MEDS: hydrOXYzine 50 MG TAB PO SCH (23:11)
[2021-10-09] MEDS: cloNIDine 0.2 MG TAB PO SCH (23:11)
[2021-10-09] MEDS: PRAZOSIN 1 MG CAP PO SCH (23:12)
[2021-10-10] MEDS: CEPACOL LOZENGE PO PRN (01:18)
[2021-10-10] MEDS: QUEtiapine FUMARATE 100 MG TAB PO PRN (01:18)
[2021-10-10 06:32] VITALS: BP 112/59
[2021-10-10] MEDS: METHYLPHENIDATE 5 MG TAB PO SCH ×2 (06:40→14:41)
[2021-10-10] MEDS: IBUPROFEN 600MG TAB PO PRN ×2 (06:57→21:48)
[2021-10-10] MEDS: PILL CUTTER 1 EACH XX PRN (09:20)
[2021-10-10] MEDS: cloNIDine 0.1MG TABLET PO SCH ×2 (09:20→15:30)
[2021-10-10] MEDS: OMEPRAZOLE 20MG CAP PO SCH (09:20)
[2021-10-10] MEDS: MULTIVITAMINS/MINERALS THERAP 1 TAB PO SCH (09:21)
[2021-10-10] MEDS: VITAMIN D 1,000 INTERNATIONAL UNITS TABLET PO SCH (09:21)
[2021-10-10] MEDS: PYRIDOXINE 50 MG TAB PO SCH (09:21)
[2021-10-10] MEDS: ACETAMINOPHEN TAB 650MG DOSE (2X325MG) PO PRN (14:42)
[2021-10-10 16:08] VITALS: BP 126/68
[2021-10-10] MEDS: ATORVASTATIN 20 MG TAB PO SCH (17:24)
[2021-10-10] MEDS: RAMELTEON 8 MG TAB (ROZEREM) PO SCH (23:07)
[2021-10-10] MEDS: QUEtiapine FUMARATE 100 MG TAB PO SCH (23:07)
[2021-10-10] MEDS: hydrOXYzine 50 MG TAB PO SCH (23:07)
[2021-10-10] MEDS: cloNIDine 0.2 MG TAB PO SCH (23:07)
[2021-10-10] MEDS: PRAZOSIN 1 MG CAP PO SCH (23:08)
[2021-10-11] MEDS: CEPACOL LOZENGE PO PRN ×3 (01:23→22:25)
[2021-10-11] MEDS: QUEtiapine FUMARATE 100 MG TAB PO PRN (01:56)
[2021-10-11] MEDS: OMEPRAZOLE 20MG CAP PO SCH (08:10)
[2021-10-11] MEDS: PILL CUTTER 1 EACH XX PRN (08:10)
[2021-10-11] MEDS: PYRIDOXINE 50 MG TAB PO SCH (08:10)
[2021-10-11] MEDS: POLYVINYL ALCOHOL OPHTH SOLN 15 ML(LIQUITEARS) OU PRN (08:10)
[2021-10-11] MEDS: cloNIDine 0.1MG TABLET PO SCH ×2 (08:10→15:02)
[2021-10-11] MEDS: METHYLPHENIDATE 5 MG TAB PO SCH ×2 (08:10→13:46)
[2021-10-11] MEDS: VITAMIN D 1,000 INTERNATIONAL UNITS TABLET PO SCH (08:11)
[2021-10-11] MEDS: MULTIVITAMINS/MINERALS THERAP 1 TAB PO SCH (08:11)
[2021-10-11] MEDS: IBUPROFEN 600MG TAB PO PRN (08:11)
[2021-10-11 09:46] VITALS: BP 119/59
[2021-10-11] MEDS: DICLOFENAC EPOLAMINE 1.3 % PATCH TOP SCH ×2 (12:14→22:24)
[2021-10-11 16:25] VITALS: BP 134/64
[2021-10-11] MEDS: ATORVASTATIN 20 MG TAB PO SCH (17:15)
[2021-10-11] MEDS: hydrOXYzine 50 MG TAB PO SCH (22:24)
[2021-10-11] MEDS: PRAZOSIN 1 MG CAP PO SCH (22:25)
[2021-10-11] MEDS: QUEtiapine FUMARATE 100 MG TAB PO SCH (22:25)
[2021-10-11] MEDS: RAMELTEON 8 MG TAB (ROZEREM) PO SCH (22:26)
[2021-10-11] MEDS: cloNIDine 0.2 MG TAB PO SCH (22:26)
[2021-10-12] MEDS: QUEtiapine FUMARATE 100 MG TAB PO PRN (01:51)
[2021-10-12 06:34] VITALS: BP 109/57
[2021-10-12] MEDS: METHYLPHENIDATE 5 MG TAB PO SCH ×2 (07:19→14:06)
[2021-10-12] MEDS: PYRIDOXINE 50 MG TAB PO SCH (09:12)
[2021-10-12] MEDS: PILL CUTTER 1 EACH XX PRN (09:12)
[2021-10-12 09:14] VITALS: BP 124/65
[2021-10-12] MEDS: VITAMIN D 1,000 INTERNATIONAL UNITS TABLET PO SCH (09:14)
[2021-10-12] MEDS: cloNIDine 0.1MG TABLET PO SCH (09:14)
[2021-10-12] MEDS: OMEPRAZOLE 20MG CAP PO SCH (09:14)
[2021-10-12] MEDS: MULTIVITAMINS/MINERALS THERAP 1 TAB PO SCH (09:14)
[2021-10-12] MEDS: DICLOFENAC EPOLAMINE 1.3 % PATCH TOP SCH (09:15)
[2021-10-12] MEDS ORDERED: QUET100T2 PO ×4 (10:36→12:44)
[2021-10-12] MEDS ORDERED: RAME8TAB2 PO (10:36)
[2021-10-12] MEDS ORDERED: DICL1PAT6 TOP (10:48)
[2021-10-12] MEDS: IBUPROFEN 600MG TAB PO PRN (12:17)
== END 2021-10-12 14:13 | disposition home or self-care (01) | DRG 885 ==
LOC: M ED 04:33 → M ED INP 10-07 15:14 → M PSY 10-07 16:01
PROVIDERS: ADMIT Psychiatry & Neurology Psychiatry; ATTEND Psychiatry & Neurology Psychiatry
DX: F31.9 Bipolar disorder, unspecified (principal); F43.10 Post-traumatic stress disorder, unspecified; E11.9 Type 2 diabetes mellitus without complications; M17.0 Bilateral primary osteoarthritis of knee; D72.829 Elevated white blood cell count, unspecified; M54.30 Sciatica, unspecified side; Z88.0 Allergy status to penicillin; Z88.6 Allergy status to analgesic agent; Z91.040 Latex allergy status; Z88.5 Allergy status to narcotic agent; Z88.8 Allergy status to other drugs, medicaments and biological substances; Z59.00 Homelessness unspecified; Z60.9 Problem related to social environment, unspecified; Z87.891 Personal history of nicotine dependence; Z20.822 Contact with and (suspected) exposure to COVID-19; Z79.899 Other long term (current) drug therapy; M25.572 Pain in left ankle and joints of left foot; W01.0XXA Fall on same level from slipping, tripping and stumbling without subsequent striking against object, initial encounter; Y92.9 Unspecified place or not applicable

== ENCOUNTER → 2022-04-29 | Outpatient (REF) | payer MEDICARE, MEDICAID ==
[~2022-04-29] MED LIST changes: +ABIL1INJ2 IM; +DICL1PAT6 TOP; +METH20TA29 PO; +OMEP-173 PO; +PRAZ1CAP PO; +PRAZ2CAP PO; +QUET1TAB17 PO; +RAME8TAB2 PO
[2022-04-29 16:56] LABS: GC DNA AMPLIFICATION NEGATIVE (NEGATIVE)
== END ==
LOC: M PLALAB 12:23
PROVIDERS: ATTEND Advanced Practice Midwife
DX: Z01.419 Encounter for gynecological examination (general) (routine) without abnormal findings (principal); Z11.3 Encounter for screening for infections with a predominantly sexual mode of transmission; Z91.89 Other specified personal risk factors, not elsewhere classified

== ENCOUNTER → 2022-09-10 | Outpatient (REF) | payer MEDICARE, MEDICAID | LOC: M PLALAB 16:44 | PROVIDERS: ATTEND Advanced Practice Midwife | DX: N90.89 Other specified noninflammatory disorders of vulva and perineum (principal) ==

== ENCOUNTER → 2022-09-30 | Outpatient (REF) | payer MEDICARE, MEDICAID ==
[2022-09-30 18:29] LABS: BASO # 0.1 10^3/uL (0.0-0.2); BASO % 0.7 % (0.0-1.0); EOS # 0.2 10^3/uL (0.0-0.5); EOS % 1.8 % (0.0-3.0); HEMATOCRIT 44.4 % (36.0-47.0); HEMOGLOBIN 14.2 g/dl (12.0-15.5); LYMPH % 23.3 % (24.0-44.0); MEAN CORPUSCULAR HEMOGLOBIN 26.5 pg (27.0-33.0); MEAN CORPUSCULAR VOLUME 82.8 fl (80.0-96.0); MONO # 0.6 10^3/uL (0.0-0.8); MONO % 7.5 % (2.0-8.0); NEUTROPHILS # 5.6 10^3/uL (1.5-8.5); PLATELET COUNT, AUTOMATED 193 10^3/uL (150-450); RED BLOOD COUNT 5.36 10^6/uL (4.00-5.40); WHITE BLOOD COUNT 8.4 10^3/uL (4.0-10.0)
[2022-09-30 21:42] LABS: ALBUMIN 3.9 G/DL (3.2-5.2); ALT/SGPT 37 U/L (7.0-40); BILIRUBIN,TOTAL 0.6 MG/DL (0.3-1.2); BLOOD UREA NITROGEN 12 MG/DL (9-23); CALCIUM LEVEL 9.7 MG/DL (8.5-10.1); CARBON DIOXIDE LEVEL 27 MMOL/L (20-31); CHLORIDE LEVEL 102 MMOL/L (98-107); CHOLESTEROL LEVEL 135 MG/DL (<200); CHOLESTEROL RISK RATIO 2.02 (<5); CREATININE FOR GFR 0.78 MG/DL (0.55-1.30); GLOMERULAR FILTRATION RATE > 60.0 (>58); GLUCOSE, FASTING 120 MG/DL (60-100); HDL CHOLESTEROL 66.6 MG/DL (>40); LDL CHOLESTEROL 55.4 MG/DL (<100); NON-HDL-C 68 MG/DL; POTASSIUM SERUM 4.3 MMOL/L (3.5-5.1); SODIUM LEVEL 140 MMOL/L (136-145); THYROID STIMULATING HORMONE 0.876 uIU/ML (0.55-4.78); TOTAL PROTEIN 6.6 G/DL (5.7-8.2); TRIGLYCERIDES LEVEL 65 MG/DL (<150)
[2022-10-01 09:17] LABS: HEMOGLOBIN A1c 5.9 % (4.0-6.0)
== END ==
LOC: M LAB REF 16:35
PROVIDERS: ATTEND Nurse Practitioner Family
DX: E66.01 Morbid (severe) obesity due to excess calories (principal)

== ENCOUNTER → 2022-10-05 | Outpatient (REF) | payer MEDICARE, MEDICAID ==
[2022-10-05 19:02] LABS: CREATININE, URINE 75.6 MG/DL; MAU/CREAT RATIO 39.6 MCG/MG (0.0-30.0)
== END ==
LOC: M LAB REF 17:06
PROVIDERS: ATTEND Nurse Practitioner Family
DX: E11.9 Type 2 diabetes mellitus without complications (principal)

== ENCOUNTER 2022-10-09 15:47 | Inpatient (IN) | payer MEDICAID, MEDICARE ==
[~2022-10-09] VITALS: Ht 175.3 cm; Wt 137.1 kg
[2022-10-09 16:54] LABS: HEMATOCRIT 40.7 % (36.0-47.0); MEAN CORPUSCULAR HEMOGLOBIN 26.5 pg (27.0-33.0); MEAN CORPUSCULAR HGB CONC 31.9 g/dl (32.0-36.5); MEAN CORPUSCULAR VOLUME 83.1 fl (80.0-96.0); PLATELET COUNT, AUTOMATED 208 10^3/uL (150-450); WHITE BLOOD COUNT 10.9 10^3/uL (4.0-10.0)
[2022-10-09 17:36] LABS: HCG, SERUM QUALITATIVE NEGATIVE (NEGATIVE)
[2022-10-09 17:48] LABS: ACETAMINOPHEN LEVEL < 2.0 UG/ML (10.0-20.0); ALBUMIN 3.7 G/DL (3.2-5.2); ALKALINE PHOSPHATASE 79 U/L (46-116); ALT/SGPT 39 U/L (7.0-40); AST/SGOT 28 U/L (<34); BILIRUBIN,DIRECT 0.2 MG/DL (<0.4); BILIRUBIN,TOTAL 0.4 MG/DL (0.3-1.2); BLOOD UREA NITROGEN 13 MG/DL (9-23); CALCIUM LEVEL 8.9 MG/DL (8.5-10.1); CARBON DIOXIDE LEVEL 30 MMOL/L (20-31); CHLORIDE LEVEL 104 MMOL/L (98-107); CREATININE FOR GFR 0.62 MG/DL (0.55-1.30); ETHYL ALCOHOL (ETHANOL) 0.005 % (0.000-0.010); GLOMERULAR FILTRATION RATE > 60.0 (>58); GLUCOSE, FASTING 112 MG/DL (60-100); POTASSIUM SERUM 4.1 MMOL/L (3.5-5.1); SALICYLATE LEVEL < 3.0 MG/DL (<30); SODIUM LEVEL 142 MMOL/L (136-145); THYROID STIMULATING HORMONE 0.784 uIU/ML (0.55-4.78); TOTAL PROTEIN 6.5 G/DL (5.7-8.2)
[2022-10-09] MEDS ORDERED: AMBI10TA PO (19:47)
[2022-10-09] MEDS ORDERED: ARIP1TAB6 PO (19:47)
[2022-10-09] MEDS ORDERED: MED REC COMMENT (19:48)
[2022-10-09 19:49] LABS: AMPHETAMINES LEVEL URINE NEGATIVE (NEGATIVE); BARBITURATES URINE NEGATIVE (NEGATIVE); BENZODIAZEPINES URINE NEGATIVE (NEGATIVE); CANNABINOIDS URINE POSITIVE (NEGATIVE); COCAINE METABOLITE URINE NEGATIVE (NEGATIVE); METHADONE URINE NEGATIVE (NEGATIVE); OPIATES URINE NEGATIVE (NEGATIVE); PHENCYCLIDINE URINE NEGATIVE (NEGATIVE)
[2022-10-09] MEDS ORDERED: HOME MED LIST COMPLETE! XX SCH (19:50)
[2022-10-09] MEDS ORDERED: cloNIDine 0.2 MG TAB PO ONE (19:55)
[2022-10-09] MEDS ORDERED: ATORVASTATIN 20 MG TAB PO ONE (19:55)
[2022-10-09] MEDS ORDERED: LORazepam 1 MG TAB PO ONE (20:35)
[2022-10-09 20:51] LABS: RSV AMPLIFICATION NEGATIVE (NEGATIVE)
[2022-10-09] MEDS ORDERED: zolPIDEM TARTRATE 5 MG TAB PO ONE (20:55)
[2022-10-09] MEDS ORDERED: MIDAZOLAM INJ 2MG/2ML VIAL (J2250 PER 1MG) IM ONE (23:05)
[2022-10-09] MEDS ORDERED: HALOPERIDOL 5MG/ML VIAL (J1630 PER 1) IM ONE (23:05)
[2022-10-10] MEDS: CALCIUM CARBONATE 500 MG CHEW U/D PO SCH (09:00)
[2022-10-10] MEDS: VITAMIN D 1,000 INTERNATIONAL UNITS TABLET PO SCH (09:00)
[2022-10-10] MEDS: NEPHRO-VIT TAB (NEPHROCAPS) PO SCH (09:00)
[2022-10-10] MEDS: ASCORBIC ACID 500 MG TAB PO SCH (09:00)
[2022-10-10] MEDS: OMEPRAZOLE 20MG CAP PO SCH (09:00)
[2022-10-10] MEDS ORDERED: hydrOXYzine 50 MG TAB PO ONE (09:25)
[2022-10-10] MEDS ORDERED: VITA100093 PO (12:41)
[2022-10-10] MEDS ORDERED: MELO15TA28 PO (12:41)
[2022-10-10] MEDS ORDERED: C 50TAB PO (12:41)
[2022-10-10] MEDS ORDERED: QUET100T2 PO (12:41)
[2022-10-10] MEDS ORDERED: B-COTAB10 PO (12:41)
[2022-10-10] MEDS ORDERED: OYST1TAB PO (12:41)
[2022-10-10] MEDS ORDERED: ALPH600C PO (12:41)
[2022-10-10] MEDS ORDERED: ACET650T15 PO (12:41)
[2022-10-10] MEDS ORDERED: QUET50TA4 PO (12:41)
[2022-10-10] MEDS ORDERED: CALCTAB53 PO (12:41)
[2022-10-10] MEDS ORDERED: PRAZ2CAP PO (12:41)
[2022-10-10] MEDS ORDERED: CVS-161 PO (12:41)
[2022-10-10] MEDS ORDERED: HYDR50CA2 PO (12:41)
[2022-10-10] MEDS ORDERED: HOME MED LIST COMPLETE! XX SCH (12:45)
[2022-10-10] MEDS ORDERED: QUEtiapine FUMARATE 50MG TAB PO PRN (13:00)
[2022-10-10] MEDS ORDERED: hydrOXYzine 50 MG TAB PO PRN (13:00)
[2022-10-10] MEDS: ACETAMINOPHEN TAB 650MG DOSE (2X325MG) PO PRN (13:29)
[2022-10-10] MEDS: cloNIDine 0.1MG TABLET PO SCH (13:32)
[2022-10-10] MEDS ORDERED: METHYLPHENIDATE 5 MG TAB PO SCH (14:00)
[2022-10-10] MEDS ORDERED: MELOXICAM (MOBIC) 7.5 MG TAB PO STA (14:18)
[2022-10-10] MEDS ORDERED: METAMUCIL (PSYLLIUM) PACKET PO ONE (15:25)
[2022-10-10] MEDS ORDERED: NEOSPORIN TOP OINT 15GM TOP ONE (18:10)
[2022-10-10] MEDS ORDERED: ACETAMINOPHEN TAB 650MG DOSE (2X325MG) PO ONE (20:40)
[2022-10-10] MEDS ORDERED: cloNIDine 0.2 MG TAB PO SCH (21:00)
[2022-10-10] MEDS ORDERED: ATORVASTATIN 20 MG TAB PO SCH (21:00)
[2022-10-10] MEDS ORDERED: zolPIDEM TARTRATE 5 MG TAB PO SCH (21:00)
[2022-10-10] MEDS ORDERED: PRAZOSIN 1 MG CAP PO SCH (21:00)
[2022-10-10] MEDS ORDERED: ACETAMINOPHEN 325 MG TAB PO ONE (23:00)
[2022-10-11] MEDS: ASCORBIC ACID 500 MG TAB PO SCH (08:15)
[2022-10-11] MEDS: VITAMIN D 1,000 INTERNATIONAL UNITS TABLET PO SCH (08:16)
[2022-10-11] MEDS: OMEPRAZOLE 20MG CAP PO SCH (08:16)
[2022-10-11] MEDS: NEPHRO-VIT TAB (NEPHROCAPS) PO SCH (08:16)
[2022-10-11] MEDS: cloNIDine 0.1MG TABLET PO SCH ×2 (08:16→13:27)
[2022-10-11] MEDS: CALCIUM CARBONATE 500 MG CHEW U/D PO SCH ×2 (08:16→20:40)
[2022-10-11] MEDS: METHYLPHENIDATE 5 MG TAB PO SCH ×2 (08:17→13:27)
[2022-10-11] MEDS ORDERED: MELOXICAM (MOBIC) 7.5 MG TAB PO SCH (09:00)
[2022-10-11] MEDS: NICOTINE 21MG/24HR 1 EA TRANSDERMAL TD SCH (09:00)
[2022-10-11] MEDS: ACETAMINOPHEN TAB 650MG DOSE (2X325MG) PO PRN ×2 (14:49→20:40)
[2022-10-11] MEDS ORDERED: MAALOX 30 ML SUSP *UDC PO PRN (15:20)
[2022-10-11] MEDS ORDERED: IBUPROFEN 400MG TAB PO PRN (15:20)
[2022-10-11] MEDS ORDERED: MOM 30ML SUSPENSION UDC PO PRN (15:20)
[2022-10-11 16:54] LABS: RSV AMPLIFICATION NEGATIVE (NEGATIVE)
[2022-10-11 21:55] VITALS: BP 138/82
[2022-10-11] MEDS ORDERED: QUEtiapine FUMARATE 100 MG TAB PO PRN (23:25)
[2022-10-12] MEDS ORDERED: UNRESOLVED CLARIFICATION ENTRY XX SCH (00:01)
[2022-10-12] MEDS: ATORVASTATIN 20 MG TAB PO SCH ×2 (00:29→21:49)
[2022-10-12] MEDS: cloNIDine 0.2 MG TAB PO SCH ×2 (00:29→21:49)
[2022-10-12] MEDS: QUEtiapine FUMARATE 50MG TAB PO PRN (00:30)
[2022-10-12] MEDS: PRAZOSIN 1 MG CAP PO SCH ×2 (00:34→21:52)
[2022-10-12] MEDS: zolPIDEM TARTRATE 5 MG TAB PO SCH ×2 (00:34→21:49)
[2022-10-12] MEDS ORDERED: ACETAMINOPHEN TAB 650MG DOSE (2X325MG) PO PRN (00:45)
[2022-10-12 06:10] VITALS: BP 125/79
[2022-10-12] MEDS: cloNIDine 0.1MG TABLET PO SCH ×2 (06:43→14:47)
[2022-10-12] MEDS: MELOXICAM (MOBIC) 7.5 MG TAB PO SCH (08:29)
[2022-10-12] MEDS: OMEPRAZOLE 20MG CAP PO SCH (08:29)
[2022-10-12] MEDS: VITAMIN D 1,000 INTERNATIONAL UNITS TABLET PO SCH (08:29)
[2022-10-12] MEDS: ASCORBIC ACID 500 MG TAB PO SCH (08:29)
[2022-10-12] MEDS: hydrOXYzine 50 MG TAB PO PRN (08:30)
[2022-10-12] MEDS: NICOTINE 21MG/24HR 1 EA TRANSDERMAL TD SCH (08:32)
[2022-10-12] MEDS: CALCIUM CARBONATE 500 MG CHEW U/D PO SCH (08:32)
[2022-10-12] MEDS ORDERED: METHYLPHENIDATE 5 MG TAB PO ONE (11:00)
[2022-10-12] MEDS ORDERED: METHYLPHENIDATE 5 MG TAB PO SCH ×2 (11:00→14:00)
[2022-10-12] MEDS: CEPHALEXIN 500 MG CAP PO SCH ×3 (11:47→23:49)
[2022-10-12] MEDS ORDERED: ARIPiprazole MONOHYDRATE 400 MG INJ (ABILIFY)(FREE PSY INPT ONLY) IM ONE (14:00)
[2022-10-12] MEDS: METHYLPHENIDATE 5 MG TAB PO SCH (14:49)
[2022-10-12 18:46] VITALS: BP 146/92
[2022-10-12] MEDS ORDERED: LORATADINE 10 MG TAB PO PRN (22:10)
[2022-10-12] MEDS ORDERED: PILL CUTTER 1 EACH XX PRN (22:15)
[2022-10-13] MEDS: QUEtiapine FUMARATE 50MG TAB PO PRN (00:57)
[2022-10-13] MEDS: hydrOXYzine 50 MG TAB PO PRN (01:45)
[2022-10-13] MEDS: CEPHALEXIN 500 MG CAP PO SCH ×2 (05:53→12:11)
[2022-10-13 06:10] VITALS: BP 118/65
[2022-10-13 06:32] VITALS: BP 118/65
[2022-10-13] MEDS: METHYLPHENIDATE 5 MG TAB PO SCH (06:32)
[2022-10-13] MEDS: cloNIDine 0.1MG TABLET PO SCH (06:32)
[2022-10-13] MEDS: ASCORBIC ACID 500 MG TAB PO SCH (08:44)
[2022-10-13] MEDS: VITAMIN D 1,000 INTERNATIONAL UNITS TABLET PO SCH (08:44)
[2022-10-13] MEDS: MELOXICAM (MOBIC) 7.5 MG TAB PO SCH (08:44)
[2022-10-13] MEDS: OMEPRAZOLE 20MG CAP PO SCH (08:45)
[2022-10-13] MEDS: CALCIUM CARBONATE 500 MG CHEW U/D PO SCH (08:45)
[2022-10-13] MEDS: NICOTINE 21MG/24HR 1 EA TRANSDERMAL TD SCH (08:45)
[2022-10-13 09:29] LABS: CHOLESTEROL RISK RATIO 1.95 (<5); HDL CHOLESTEROL 56.7 MG/DL (>40); LDL CHOLESTEROL 37.9 MG/DL (<100)
[2022-10-14] MEDS ORDERED: METH-444 PO (09:52)
== END 2022-10-13 13:04 | disposition home or self-care (01) | DRG 885 ==
LOC: M ED 15:47 → M ED INP 10-11 15:18 → M PSY 10-11 21:44
PROVIDERS: ADMIT Student in an Organized Health Care Education/Training Program; ATTEND Psychiatry & Neurology Psychiatry
DX: F31.10 Bipolar disorder, current episode manic without psychotic features, unspecified (principal); L03.115 Cellulitis of right lower limb; F90.9 Attention-deficit hyperactivity disorder, unspecified type; F43.10 Post-traumatic stress disorder, unspecified; R48.0 Dyslexia and alexia; F12.90 Cannabis use, unspecified, uncomplicated; Z56.0 Unemployment, unspecified; Z20.822 Contact with and (suspected) exposure to COVID-19; Z91.52 Personal history of nonsuicidal self-harm; Z79.899 Other long term (current) drug therapy; Z91.410 Personal history of adult physical and sexual abuse; D72.829 Elevated white blood cell count, unspecified; Z87.891 Personal history of nicotine dependence; Z88.0 Allergy status to penicillin; Z88.5 Allergy status to narcotic agent; Z88.8 Allergy status to other drugs, medicaments and biological substances; Z88.6 Allergy status to analgesic agent; Z91.040 Latex allergy status

== ENCOUNTER 2022-10-16 10:29 | Emergency (ER) | payer MEDICARE, MEDICAID ==
[~2022-10-16 10:29] MED LIST changes: +ACET650T15 PO; +AMBI10TA PO; +ARIP1TAB6 PO; +B-COTAB10 PO; +C 50TAB PO; +CALCTAB53 PO; +CVS-161 PO; +MED REC COMMENT; +MELO15TA28 PO; +METH-444 PO; +OYST1TAB PO; +VITA100093 PO
[2022-10-16] MEDS ORDERED: KETOROLAC 30 MG/ML 1ML VIAL IV ONE ×2 (11:25→14:05)
[2022-10-16] MEDS ORDERED: LIDOCAINE 5% (LIDODERM) PATCH TD ONE (11:25)
[2022-10-16] MEDS ORDERED: diazePAM 10MG/2ML SYRINGE (J3360 PER 5MG) IV ONE ×2 (11:25→12:30)
[2022-10-16 11:53] LABS: BASO % 0.2 % (0.0-1.0); EOS # 0.1 10^3/uL (0.0-0.5); EOS % 0.6 % (0.0-3.0); HEMATOCRIT 39.8 % (36.0-47.0); LYMPH # 1.8 10^3/uL (1.5-5.0); LYMPH % 14.3 % (24.0-44.0); MEAN CORPUSCULAR HEMOGLOBIN 26.4 pg (27.0-33.0); MEAN CORPUSCULAR HGB CONC 32.7 g/dl (32.0-36.5); MEAN CORPUSCULAR VOLUME 80.7 fl (80.0-96.0); MONO # 0.9 10^3/uL (0.0-0.8); MONO % 7.5 % (2.0-8.0); NEUTROPHILS # 9.7 10^3/uL (1.5-8.5); NEUTROPHILS % 76.9 % (36.0-66.0); PLATELET COUNT, AUTOMATED 193 10^3/uL (150-450); RED BLOOD COUNT 4.93 10^6/uL (4.00-5.40); WHITE BLOOD COUNT 12.6 10^3/uL (4.0-10.0)
[2022-10-16] MEDS ORDERED: MORPHINE 4 MG/ML 1ML VIAL IV ONE ×2 (13:20→14:05)
[2022-10-16] MEDS ORDERED: LIDOCAINE 4% CREAM 5GM (LMX4) TOP ONE (14:55)
[2022-10-16 16:58] VITALS: BP 159/72
[2022-10-16] MEDS ORDERED: ASPE4PAD TOP (16:58)
[2022-10-16] MEDS ORDERED: NAPR-885 PO (16:58)
[2022-10-16] MEDS ORDERED: METH-1165 PO (16:58)
[2022-10-16] MEDS ORDERED: methylPREDNISolone 125MG 2ML VIAL IV ONE (17:00)
[2022-10-16] MEDS ORDERED: PRED20TA PO (17:15)
== END 2022-10-16 17:17 | disposition home or self-care (01) ==
LOC: EDBD 10:29 → M ED 10:29
DX: M54.17 Radiculopathy, lumbosacral region (principal); E11.9 Type 2 diabetes mellitus without complications; R22.42 Localized swelling, mass and lump, left lower limb; Z79.899 Other long term (current) drug therapy; Z88.0 Allergy status to penicillin; Z88.6 Allergy status to analgesic agent; Z88.5 Allergy status to narcotic agent; Z88.8 Allergy status to other drugs, medicaments and biological substances; Z91.040 Latex allergy status
CPT/HCPCS: 72110; 80047; 81000; 81015; 85025; 93971; 96374; 96375; 96376; 99284; J1885; J2270; J2930; J3360

== ENCOUNTER 2022-10-17 02:50 | Emergency (ER) | payer MEDICARE, MEDICAID ==
[~2022-10-17] VITALS: Ht 175.3 cm; Wt 131.8 kg
[~2022-10-17 02:50] MED LIST changes: +ASPE4PAD TOP; +METH-1165 PO; +NAPR-885 PO
[2022-10-17 07:22] VITALS: BP 142/75
== END 2022-10-17 07:38 | disposition home or self-care (01) ==
LOC: M ED 02:50
DX: S93.402A Sprain of unspecified ligament of left ankle, initial encounter (principal); X50.1XXA Overexertion from prolonged static or awkward postures, initial encounter; Y92.099 Unspecified place in other non-institutional residence as the place of occurrence of the external cause; F31.9 Bipolar disorder, unspecified; F43.10 Post-traumatic stress disorder, unspecified; F17.200 Nicotine dependence, unspecified, uncomplicated; Z79.899 Other long term (current) drug therapy; Z88.0 Allergy status to penicillin; Z88.6 Allergy status to analgesic agent; Z88.5 Allergy status to narcotic agent; Z88.8 Allergy status to other drugs, medicaments and biological substances; Z91.040 Latex allergy status

== ENCOUNTER → 2022-12-16 | Outpatient (CLI) | payer MEDICARE, MEDICAID | LOC: M PLARAD 09:56 | PROVIDERS: ATTEND Physician Assistant | DX: S93.402D Sprain of unspecified ligament of left ankle, subsequent encounter (principal) ==

== ENCOUNTER → 2022-12-24 | Outpatient (REF) | payer MEDICARE, MEDICAID ==
[2022-12-24 17:41] LABS: HEMOGLOBIN A1c 6.2 % (4.0-6.0)
== END ==
LOC: M LAB REF 15:55
PROVIDERS: ATTEND Nurse Practitioner Family
DX: E11.9 Type 2 diabetes mellitus without complications (principal)

== ENCOUNTER → 2022-12-31 | Outpatient (CLI) | payer MEDICARE, MEDICAID | LOC: M RAD 12:26 | PROVIDERS: ATTEND Advanced Practice Midwife | DX: Z91.49 Other personal history of psychological trauma, not elsewhere classified (principal); Z53.9 Procedure and treatment not carried out, unspecified reason ==

== ENCOUNTER → 2023-02-16 | Outpatient (CLI) | payer MEDICARE, MEDICAID ==
[~2023-02-16] MED LIST changes: +FLUT50SP17 NARES; -FLUTISP NARES
== END ==
LOC: M WHC 15:59
PROVIDERS: ATTEND Advanced Practice Midwife
DX: Z12.31 Encounter for screening mammogram for malignant neoplasm of breast (principal); Z80.3 Family history of malignant neoplasm of breast; Z80.42 Family history of malignant neoplasm of prostate

== ENCOUNTER → 2023-04-05 | Outpatient (REF) | payer MEDICARE, MEDICAID ==
[2023-04-05 17:24] LABS: CHOLESTEROL RISK RATIO 2.51 (<5); HDL CHOLESTEROL 52.8 MG/DL (>40); LDL CHOLESTEROL 49.2 MG/DL (<100); NON-HDL-C 80.2 MG/DL
[2023-04-05 17:36] LABS: HEMOGLOBIN A1c 6.3 % (4.0-6.0)
== END ==
LOC: M LAB REF 16:18
PROVIDERS: ATTEND Nurse Practitioner Family
DX: E11.9 Type 2 diabetes mellitus without complications (principal); E78.5 Hyperlipidemia, unspecified; E66.9 Obesity, unspecified

== ENCOUNTER 2023-05-18 03:53 | Emergency (ER) | payer MEDICARE, MEDICAID ==
[~2023-05-18] VITALS: Ht 175.3 cm; Wt 139.8 kg
[2023-05-18 03:59] VITALS: BP 121/64; TEMP 97.9; O2SAT 95
== END 2023-05-18 06:37 | disposition left against medical advice (07) ==
LOC: EDBD 03:53 → M ED 03:53
DX: Z53.21 Procedure and treatment not carried out due to patient leaving prior to being seen by health care provider (principal)

== ENCOUNTER 2023-05-18 06:43 | Emergency (ER) | payer MEDICARE, MEDICAID ==
[~2023-05-18] VITALS: Ht 175.3 cm; Wt 139.8 kg
[2023-05-18 09:24] VITALS: BP 119/60; TEMP 97.5; O2SAT 100
== END 2023-05-18 09:28 | disposition home or self-care (01) ==
LOC: M ED 06:43
DX: F41.0 Panic disorder [episodic paroxysmal anxiety] (principal); E11.9 Type 2 diabetes mellitus without complications; I10 Essential (primary) hypertension; F31.9 Bipolar disorder, unspecified; F41.9 Anxiety disorder, unspecified; F90.9 Attention-deficit hyperactivity disorder, unspecified type; Z87.891 Personal history of nicotine dependence; F17.290 Nicotine dependence, other tobacco product, uncomplicated; Z79.899 Other long term (current) drug therapy; Z88.0 Allergy status to penicillin; Z88.6 Allergy status to analgesic agent; Z88.5 Allergy status to narcotic agent; Z88.8 Allergy status to other drugs, medicaments and biological substances; Z91.040 Latex allergy status

== ENCOUNTER → 2023-07-20 | Outpatient (REF) | payer MEDICARE, MEDICAID | LOC: M PLALAB 13:15 | PROVIDERS: ATTEND Advanced Practice Midwife | DX: Z01.419 Encounter for gynecological examination (general) (routine) without abnormal findings (principal); Z11.3 Encounter for screening for infections with a predominantly sexual mode of transmission ==

== ENCOUNTER → 2023-07-20 | Outpatient (REF) | payer MEDICARE, MEDICAID ==
[2023-07-20 20:00] LABS: GC DNA AMPLIFICATION NEGATIVE (NEGATIVE)
== END ==
LOC: M SFHCWAGY 17:06
PROVIDERS: ATTEND Advanced Practice Midwife
DX: Z01.419 Encounter for gynecological examination (general) (routine) without abnormal findings (principal); Z11.3 Encounter for screening for infections with a predominantly sexual mode of transmission

== ENCOUNTER → 2023-07-20 | Outpatient (CLI) | payer MEDICARE, MEDICAID | LOC: M RAD 09:13 | PROVIDERS: ATTEND Internal Medicine Gastroenterology | DX: R11.0 Nausea (principal) ==

== ENCOUNTER → 2023-08-02 | Outpatient (REF) | payer MEDICARE, MEDICAID ==
[2023-08-02 14:21] LABS: CHOLESTEROL RISK RATIO 3.07 (<5); HDL CHOLESTEROL 50.8 MG/DL (>40); NON-HDL-C 105.2 MG/DL
== END ==
LOC: M LAB REF 11:40
PROVIDERS: ATTEND Nurse Practitioner Family
DX: E66.9 Obesity, unspecified (principal); E11.9 Type 2 diabetes mellitus without complications

== ENCOUNTER → 2023-11-29 | Outpatient (REF) | payer MEDICARE, MEDICAID ==
[~2023-11-29] MED LIST changes: -FLUT50SP17 NARES; +FLUTISP NARES
[2023-11-29 15:18] LABS: BASO # 0.1 10^3/uL (0.0-0.2); BASO % 0.5 % (0.0-1.0); EOS # 0.2 10^3/uL (0.0-0.5); EOS % 2.2 % (0.0-3.0); HEMATOCRIT 44.6 % (36.0-47.0); HEMOGLOBIN 14.3 g/dl (12.0-15.5); LYMPH # 2.6 10^3/uL (1.5-5.0); LYMPH % 28.4 % (24.0-44.0); MEAN CORPUSCULAR HEMOGLOBIN 26.2 pg (27.0-33.0); MEAN CORPUSCULAR HGB CONC 32.1 g/dl (32.0-36.5); MEAN CORPUSCULAR VOLUME 81.7 fl (80.0-96.0); MONO # 0.6 10^3/uL (0.0-0.8); MONO % 6.5 % (2.0-8.0); NEUTROPHILS # 5.6 10^3/uL (1.5-8.5); NEUTROPHILS % 61.7 % (36.0-66.0); PLATELET COUNT, AUTOMATED 219 10^3/uL (150-450); RED BLOOD COUNT 5.46 10^6/uL (4.00-5.40); WHITE BLOOD COUNT 9.1 10^3/uL (4.0-10.0)
[2023-11-29 15:38] LABS: HEMOGLOBIN A1c 7.4 % (4.0-6.0)
[2023-11-29 15:44] LABS: ALBUMIN 3.4 G/DL (3.2-5.2); ALKALINE PHOSPHATASE 106 U/L (46-116); ALT/SGPT 49 U/L (7.0-40); AST/SGOT 19 U/L (<34); BILIRUBIN,TOTAL 0.6 MG/DL (0.3-1.2); BLOOD UREA NITROGEN 12 MG/DL (9-23); CALCIUM LEVEL 8.7 MG/DL (8.5-10.1); CARBON DIOXIDE LEVEL 30 MMOL/L (20-31); CHLORIDE LEVEL 103 MMOL/L (98-107); CHOLESTEROL LEVEL 160 MG/DL (<200); CHOLESTEROL RISK RATIO 2.77 (<5); CREATININE FOR GFR 0.63 MG/DL (0.55-1.30); GLOMERULAR FILTRATION RATE > 60.0 (>58); GLUCOSE, FASTING 166 MG/DL (60-100); HDL CHOLESTEROL 57.7 MG/DL (>40); LDL CHOLESTEROL 68.9 MG/DL (<100); MAGNESIUM LEVEL 1.8 MG/DL (1.8-2.4); NON-HDL-C 102.3 MG/DL; POTASSIUM SERUM 4.4 MMOL/L (3.5-5.1); SODIUM LEVEL 138 MMOL/L (136-145); TOTAL PROTEIN 6.5 G/DL (5.7-8.2); TRIGLYCERIDES LEVEL 167 MG/DL (<150)
[2023-11-29 15:47] LABS: TOTAL 25(OH) VITAMIN D 65.4 NG/ML (20.0-100.0)
[2023-11-29 15:48] LABS: THYROID STIMULATING HORMONE 1.614 uIU/ML (0.55-4.78)
== END ==
LOC: M LAB REF 12:38
PROVIDERS: ATTEND Nurse Practitioner Family
DX: E66.9 Obesity, unspecified (principal); E11.9 Type 2 diabetes mellitus without complications; Z13.228 Encounter for screening for other metabolic disorders; Z79.899 Other long term (current) drug therapy

== ENCOUNTER → 2023-12-12 | Outpatient (REF) | payer MEDICARE, MEDICAID ==
[~2023-12-12] MED LIST changes: +ACET650T61 PO; +ARIS2.4I IM; +LIDO1PAD TOP; +METH1CAP3 PO; +ONDA-83 PO; +ZOLP12.518 PO
[2023-12-12 17:29] LABS: CREATININE, URINE 22.2 MG/DL; CREATININE,RANDOM URINE 22.2 MG/DL; MALB URINE SIEMENS < 3.0 MG/L; MAU/CREAT RATIO 13.5 MCG/MG (0.0-30.0)
== END ==
LOC: M LAB REF 16:16
PROVIDERS: ATTEND Nurse Practitioner Family
DX: E11.9 Type 2 diabetes mellitus without complications (principal)

== ENCOUNTER 2023-12-21 10:13 | Day surgery (SDC) | payer MEDICARE, MEDICAID ==
[~2023-12-21] VITALS: Ht 175.3 cm; Wt 140.5 kg
[2023-12-21] MEDS: NS 1,000 ML IV ONE (10:29)
[2023-12-21] MEDS ORDERED: propofoL 200 MG/20 ML VIAL As Ordered ONE (11:00)
[2023-12-21 11:16] VITALS: TEMP 97.6
[2023-12-21 11:40] VITALS: BP 135/68; O2SAT 100
== END 2023-12-21 11:50 | disposition home or self-care (01) ==
LOC: M OPP 10:13
PROVIDERS: ATTEND Internal Medicine Gastroenterology
DX: Z12.11 Encounter for screening for malignant neoplasm of colon (principal); K64.0 First degree hemorrhoids; K21.00 Gastro-esophageal reflux disease with esophagitis, without bleeding; K31.89 Other diseases of stomach and duodenum; K44.9 Diaphragmatic hernia without obstruction or gangrene; R12 Heartburn; R11.0 Nausea; Z79.02 Long term (current) use of antithrombotics/antiplatelets; Z79.1 Long term (current) use of non-steroidal anti-inflammatories (NSAID); Z79.891 Long term (current) use of opiate analgesic; Z79.899 Other long term (current) drug therapy; Z88.0 Allergy status to penicillin; Z88.4 Allergy status to anesthetic agent; Z88.5 Allergy status to narcotic agent; Z88.8 Allergy status to other drugs, medicaments and biological substances; Z91.040 Latex allergy status
CPT/HCPCS: 88305; G0121

== ENCOUNTER 2024-01-21 10:07 | Observation (INO) | payer MEDICARE, MEDICAID ==
[~2024-01-21] VITALS: Ht 175.3 cm; Wt 137.4 kg
[2024-01-21] MEDS ORDERED: MED REC IN PROGRESS XX SCH (10:45)
[2024-01-21 11:27] LABS: AMPHETAMINES LEVEL URINE NEGATIVE (NEGATIVE); BARBITURATES URINE NEGATIVE (NEGATIVE); BENZODIAZEPINES URINE NEGATIVE (NEGATIVE); COCAINE METABOLITE URINE NEGATIVE (NEGATIVE); METHADONE URINE NEGATIVE (NEGATIVE); OPIATES URINE NEGATIVE (NEGATIVE); PHENCYCLIDINE URINE NEGATIVE (NEGATIVE)
[2024-01-21 11:35] LABS: CANNABINOIDS URINE POSITIVE (NEGATIVE)
[2024-01-21] MEDS ORDERED: METF500T13 PO (12:14)
[2024-01-21] MEDS ORDERED: NORT10CA2 PO (12:14)
[2024-01-21] MEDS ORDERED: BENZ-18 PO (12:14)
[2024-01-21] MEDS ORDERED: ARIP10TA32 PO (12:14)
[2024-01-21 12:19] LABS: HEMATOCRIT 37.6 % (36.0-47.0); HEMOGLOBIN 12.3 g/dl (12.0-15.5); MEAN CORPUSCULAR HEMOGLOBIN 26.5 pg (27.0-33.0); MEAN CORPUSCULAR HGB CONC 32.7 g/dl (32.0-36.5); PLATELET COUNT, AUTOMATED 196 10^3/uL (150-450); RED BLOOD COUNT 4.64 10^6/uL (4.00-5.40); WHITE BLOOD COUNT 10.5 10^3/uL (4.0-10.0)
[2024-01-21] MEDS ORDERED: HOME MED LIST COMPLETE! XX SCH (12:25)
[2024-01-21 12:37] LABS: ETHYL ALCOHOL (ETHANOL) < 0.003 % (0.000-0.010)
[2024-01-21 12:38] LABS: SALICYLATE LEVEL < 3.0 MG/DL (<30)
[2024-01-21 12:39] LABS: ALBUMIN 3.2 G/DL (3.2-5.2); ALKALINE PHOSPHATASE 101 U/L (46-116); ALT/SGPT 43 U/L (7.0-40); AST/SGOT 32 U/L (<34); BILIRUBIN,DIRECT 0.1 MG/DL (<0.4); BILIRUBIN,TOTAL 0.3 MG/DL (0.3-1.2); BLOOD UREA NITROGEN 12 MG/DL (9-23); CALCIUM LEVEL 8.2 MG/DL (8.5-10.1); CARBON DIOXIDE LEVEL 30 MMOL/L (20-31); CHLORIDE LEVEL 104 MMOL/L (98-107); CREATININE FOR GFR 0.66 MG/DL (0.55-1.30); GLOMERULAR FILTRATION RATE > 60.0 (>58); GLUCOSE, FASTING 200 MG/DL (60-100); HCG, SERUM QUALITATIVE NEGATIVE (NEGATIVE); POTASSIUM SERUM 4.1 MMOL/L (3.5-5.1); SODIUM LEVEL 139 MMOL/L (136-145); TOTAL PROTEIN 6.1 G/DL (5.7-8.2)
[2024-01-21 12:42] LABS: THYROID STIMULATING HORMONE 1.066 uIU/ML (0.55-4.78)
[2024-01-21] MEDS: LORazepam 2 MG TAB PO STA (12:46)
[2024-01-21] MEDS: NS 1,000 ML IV ONE (14:25)
[2024-01-21] MEDS ORDERED: LORazepam 2 MG/ML 1ML VIAL IV PRN (17:55)
[2024-01-21 18:00] VITALS: BP 123/84; TEMP 97.7; O2SAT 100
[2024-01-21] MEDS: ACETAMINOPHEN 650MG ER TAB (TYLENOL ARTHRITIS) PO PRN (19:34)
[2024-01-21] MEDS: ATORVASTATIN 20 MG TAB PO SCH (20:34)
[2024-01-21] MEDS: cloNIDine 0.2 MG TAB PO SCH (20:34)
[2024-01-21] MEDS: HEPARIN SOD (PORCINE) 5000UNITS/ML 1ML VIAL/SYRINGE SC SCH (20:34)
[2024-01-21 22:00] VITALS: BP 121/73; TEMP 98.6; O2SAT 95
[2024-01-22] MEDS ORDERED: ONDANSETRON 4MG 2ML VIAL IV PRN (04:05)
[2024-01-22 05:56] LABS: HEMATOCRIT 37.3 % (36.0-47.0); MEAN CORPUSCULAR HEMOGLOBIN 26.4 pg (27.0-33.0); MEAN CORPUSCULAR HGB CONC 32.2 g/dl (32.0-36.5); PLATELET COUNT, AUTOMATED 176 10^3/uL (150-450); RED BLOOD COUNT 4.55 10^6/uL (4.00-5.40); WHITE BLOOD COUNT 9.4 10^3/uL (4.0-10.0)
[2024-01-22 06:00] VITALS: BP 136/74; TEMP 97.9; O2SAT 94
[2024-01-22 06:17] LABS: BLOOD UREA NITROGEN 10 MG/DL (9-23); CALCIUM LEVEL 8.3 MG/DL (8.5-10.1); CARBON DIOXIDE LEVEL 29 MMOL/L (20-31); CHLORIDE LEVEL 105 MMOL/L (98-107); CPK CREATINE PHOSPHOKINASE 468 U/L (34-145); CREATININE FOR GFR 0.61 MG/DL (0.55-1.30); GLOMERULAR FILTRATION RATE > 60.0 (>58); GLUCOSE, FASTING 166 MG/DL (60-100); POTASSIUM SERUM 4.4 MMOL/L (3.5-5.1); SODIUM LEVEL 139 MMOL/L (136-145)
[2024-01-22 08:00] LABS: ALBUMIN 2.8 G/DL (3.2-5.2); ALKALINE PHOSPHATASE 89 U/L (46-116); ALT/SGPT 42 U/L (7.0-40); AST/SGOT 29 U/L (<34); BILIRUBIN,DIRECT 0.1 MG/DL (<0.4); BILIRUBIN,TOTAL 0.4 MG/DL (0.3-1.2); TOTAL PROTEIN 5.7 G/DL (5.7-8.2)
[2024-01-22] MEDS: OMEPRAZOLE 20MG CAP PO SCH (09:27)
[2024-01-22] MEDS: ONDANSETRON 4MG TAB PO PRN (09:28)
[2024-01-22] MEDS: cloNIDine 0.1MG TABLET PO SCH (09:28)
[2024-01-22] MEDS: CALCIUM/VITAMIN D 500 MG TAB PO SCH (10:19)
[2024-01-22] MEDS: MULTIVITAMINS/MINERALS THERAP 1 TAB PO SCH (10:19)
[2024-01-22 14:00] VITALS: BP 139/85; TEMP 97.9; O2SAT 100
[2024-01-22] MEDS: DOXYCYCLINE HYCLATE 100MG TABLET PO SCH (14:43)
[2024-01-22] MEDS: NAPROXEN 250 MG TAB PO PRN (14:44)
[2024-01-22 15:33] VITALS: BP 137/67
[2024-01-22 22:00] VITALS: BP 136/83; TEMP 97.5; O2SAT 99
[2024-01-23] MEDS ORDERED: CHLORASEPTIC SPRAY MT PRN (00:30)
[2024-01-23 06:00] VITALS: BP 138/81; TEMP 98.1; O2SAT 99
[2024-01-23 07:06] LABS: HEMATOCRIT 38.9 % (36.0-47.0); HEMOGLOBIN 12.5 g/dl (12.0-15.5); MEAN CORPUSCULAR HGB CONC 32.1 g/dl (32.0-36.5); MEAN CORPUSCULAR VOLUME 80.9 fl (80.0-96.0); PLATELET COUNT, AUTOMATED 182 10^3/uL (150-450); RED BLOOD COUNT 4.81 10^6/uL (4.00-5.40); WHITE BLOOD COUNT 9.3 10^3/uL (4.0-10.0)
[2024-01-23 08:17] LABS: BLOOD UREA NITROGEN 12 MG/DL (9-23); CARBON DIOXIDE LEVEL 30 MMOL/L (20-31); CHLORIDE LEVEL 104 MMOL/L (98-107); CPK CREATINE PHOSPHOKINASE 342 U/L (34-145); CREATININE FOR GFR 0.66 MG/DL (0.55-1.30); GLOMERULAR FILTRATION RATE > 60.0 (>58); GLUCOSE, FASTING 139 MG/DL (60-100); POTASSIUM SERUM 4.1 MMOL/L (3.5-5.1); SODIUM LEVEL 137 MMOL/L (136-145)
[2024-01-23] MEDS: ARIPiprazole 10 MG TAB PO SCH (13:35)
[2024-01-23 14:00] VITALS: BP 133/70; TEMP 98.1; O2SAT 96
[2024-01-23] MEDS: PRAZOSIN 1 MG CAP PO SCH (20:32)
[2024-01-23 22:00] VITALS: BP 127/79; TEMP 98.2; O2SAT 98
[2024-01-23] MEDS: RAMELTEON 8 MG TAB (ROZEREM) PO PRN (22:06)
[2024-01-24] MEDS: CHLORASEPTIC SPRAY MT PRN (01:02)
[2024-01-24 05:50] VITALS: BP 108/65; TEMP 98.2; O2SAT 99
[2024-01-24 09:13] VITALS: BP 150/87
[2024-01-24] MEDS ORDERED: DOXY100T PO (10:51)
== END 2024-01-24 12:37 | disposition home or self-care (01) ==
LOC: M ED 10:07 → M ED INP 10:08 → M MSPAV 17:53
PROVIDERS: ADMIT Internal Medicine; ATTEND Internal Medicine
DX: T43.591A Poisoning by other antipsychotics and neuroleptics, accidental (unintentional), initial encounter (principal); F31.10 Bipolar disorder, current episode manic without psychotic features, unspecified; F41.1 Generalized anxiety disorder; R74.8 Abnormal levels of other serum enzymes; L03.116 Cellulitis of left lower limb; G47.00 Insomnia, unspecified; E55.9 Vitamin D deficiency, unspecified; M54.50 Low back pain, unspecified; E58 Dietary calcium deficiency; Z79.899 Other long term (current) drug therapy; E66.9 Obesity, unspecified; E78.5 Hyperlipidemia, unspecified; K21.9 Gastro-esophageal reflux disease without esophagitis; Z88.0 Allergy status to penicillin; Z91.040 Latex allergy status; Z88.8 Allergy status to other drugs, medicaments and biological substances
CPT/HCPCS: 36415; 73610; 80048; 80076; 80143; 80307; 82077; 82550; 83605; 83930; 84443; 84703; 85027; 87635; 93005; 93041; 94760; 99284; G0378

== ENCOUNTER 2024-01-31 08:03 | Emergency (ER) | payer MEDICARE, MEDICAID ==
[~2024-01-31] VITALS: Ht 175.3 cm; Wt 154.6 kg
[~2024-01-31 08:03] MED LIST changes: +ARIP10TA32 PO; +BENZ-18 PO; +DOXY100T PO; +NORT10CA2 PO
[2024-01-31 12:59] LABS: BASO % 0.5 % (0.0-1.0); EOS # 0.3 10^3/uL (0.0-0.5); EOS % 3.1 % (0.0-3.0); HEMATOCRIT 38.9 % (36.0-47.0); HEMOGLOBIN 12.5 g/dl (12.0-15.5); LYMPH # 1.9 10^3/uL (1.5-5.0); LYMPH % 22.4 % (24.0-44.0); MEAN CORPUSCULAR HEMOGLOBIN 26.7 pg (27.0-33.0); MEAN CORPUSCULAR HGB CONC 32.1 g/dl (32.0-36.5); MEAN CORPUSCULAR VOLUME 82.9 fl (80.0-96.0); MONO # 0.5 10^3/uL (0.0-0.8); MONO % 6.3 % (2.0-8.0); NEUTROPHILS # 5.7 10^3/uL (1.5-8.5); NEUTROPHILS % 66.9 % (36.0-66.0); PLATELET COUNT, AUTOMATED 206 10^3/uL (150-450); RED BLOOD COUNT 4.69 10^6/uL (4.00-5.40); WHITE BLOOD COUNT 8.6 10^3/uL (4.0-10.0)
[2024-01-31] MEDS: FUROSEMIDE 40MG/4ML VIAL IV ONE (13:19)
[2024-01-31 13:25] LABS: ALBUMIN 3.3 G/DL (3.2-5.2); ALKALINE PHOSPHATASE 85 U/L (46-116); ALT/SGPT 44 U/L (7.0-40); AST/SGOT 38 U/L (<34); BILIRUBIN,DIRECT < 0.1 MG/DL (<0.4); BILIRUBIN,TOTAL 0.3 MG/DL (0.3-1.2); BLOOD UREA NITROGEN 12 MG/DL (9-23); CALCIUM LEVEL 8.2 MG/DL (8.5-10.1); CARBON DIOXIDE LEVEL 31 MMOL/L (20-31); CHLORIDE LEVEL 103 MMOL/L (98-107); CK-MB VALUE MASS 1.7 NG/ML (<3.6); CREATININE FOR GFR 0.55 MG/DL (0.55-1.30); GLOMERULAR FILTRATION RATE > 60.0 (>58); GLUCOSE, FASTING 124 MG/DL (60-100); POTASSIUM SERUM 4.7 MMOL/L (3.5-5.1); SODIUM LEVEL 138 MMOL/L (136-145); TOTAL PROTEIN 6.1 G/DL (5.7-8.2)
[2024-01-31 13:27] LABS: THYROID STIMULATING HORMONE 0.908 uIU/ML (0.55-4.78)
[2024-01-31 13:30] LABS: CPK CREATINE PHOSPHOKINASE 559 U/L (34-145)
[2024-01-31 13:31] LABS: HCG, SERUM QUALITATIVE NEGATIVE (NEGATIVE)
[2024-01-31 13:52] LABS: APPEARANCE, URINE CLEAR (CLEAR); BACTERIA, URINE AUTO NEGATIVE (NEGATIVE); BILIRUBIN, URINE AUTO NEGATIVE (NEGATIVE); BLOOD, URINE BLOOD NEGATIVE (NEGATIVE); COLOR, URINE YELLOW (YELLOW); GLUCOSE, URINE (UA) AUTO 1+ mg/dL (NEGATIVE); KETONE, URINE AUTO NEGATIVE (NEGATIVE); LEUKOCYTE ESTERASE, URINE AUTO NEGATIVE (NEGATIVE); MUCUS, URINE SMALL (NEGATIVE); NITRITE, URINE AUTO NEGATIVE (NEGATIVE); PROTEIN, URINE AUTO NEGATIVE (NEGATIVE); RBC, URINE AUTO 1 /HPF (0-3); SQUAMOUS EPITHELIAL CELL UR AU 1 /HPF (0-6); UROBILINOGEN, URINE AUTO 0.2 mg/dL (0.0-2.0); WBC, URINE AUTO 0 /HPF (0-3)
[2024-01-31] MEDS ORDERED: FURO40TA2 PO (14:00)
[2024-01-31] MEDS ORDERED: OMEP40CA5 PO (14:00)
[2024-01-31] MEDS ORDERED: METH20TA31 PO (14:00)
[2024-01-31] MEDS ORDERED: SERO50TA PO (14:00)
[2024-01-31] MEDS ORDERED: ONDA4TAB6 SL (14:00)
[2024-01-31] MEDS ORDERED: HOME MED LIST COMPLETE! XX SCH (14:05)
[2024-01-31] MEDS ORDERED: LASI20TA3 PO (15:46)
[2024-01-31] MEDS ORDERED: HYDR25OIN TOP (15:49)
[2024-01-31 15:53] VITALS: BP 130/80; TEMP 97.5; O2SAT 99
== END 2024-01-31 16:12 | disposition home or self-care (01) ==
LOC: EDBD 08:03 → M ED 08:03
DX: R60.0 Localized edema (principal); I87.2 Venous insufficiency (chronic) (peripheral); E11.9 Type 2 diabetes mellitus without complications; K21.9 Gastro-esophageal reflux disease without esophagitis; F32.A Depression, unspecified; F41.9 Anxiety disorder, unspecified; Z88.0 Allergy status to penicillin; Z88.5 Allergy status to narcotic agent; Z88.8 Allergy status to other drugs, medicaments and biological substances; Z88.4 Allergy status to anesthetic agent; Z91.040 Latex allergy status; Z79.899 Other long term (current) drug therapy; Z79.1 Long term (current) use of non-steroidal anti-inflammatories (NSAID)
CPT/HCPCS: 71045; 80048; 80076; 81001; 82550; 82553; 83880; 84443; 84484; 84703; 85025; 93005; 96374; 99284; J1940

== ENCOUNTER → 2024-02-22 | Outpatient (REF) | payer MEDICARE, MEDICAID ==
[~2024-02-22] MED LIST changes: +FURO40TA2 PO; +HYDR25OIN TOP; +LASI20TA3 PO; +METH20TA31 PO; +OMEP40CA5 PO; +ONDA4TAB6 SL; +SERO50TA PO
[2024-02-22 18:59] LABS: HEMOGLOBIN A1c 7.5 % (4.0-6.0)
[2024-02-22 19:04] LABS: ALBUMIN 3.2 G/DL (3.2-5.2); ALKALINE PHOSPHATASE 96 U/L (46-116); ALT/SGPT 42 U/L (7.0-40); AST/SGOT 22 U/L (<34); BILIRUBIN,TOTAL 0.2 MG/DL (0.3-1.2); BLOOD UREA NITROGEN 13 MG/DL (9-23); CALCIUM LEVEL 8.5 MG/DL (8.5-10.1); CARBON DIOXIDE LEVEL 29 MMOL/L (20-31); CHLORIDE LEVEL 105 MMOL/L (98-107); CREATININE FOR GFR 0.66 MG/DL (0.55-1.30); GLOMERULAR FILTRATION RATE > 60.0 (>58); GLUCOSE, FASTING 209 MG/DL (60-100); MAGNESIUM LEVEL 1.4 MG/DL (1.8-2.4); POTASSIUM SERUM 4.7 MMOL/L (3.5-5.1); SODIUM LEVEL 140 MMOL/L (136-145)
== END ==
LOC: M LAB REF 17:40
PROVIDERS: ATTEND Nurse Practitioner Family
DX: R60.0 Localized edema (principal); E11.9 Type 2 diabetes mellitus without complications

== ENCOUNTER → 2024-03-15 | Outpatient (CLI) | payer MEDICARE, MEDICAID ==
[~2024-03-15] MED LIST changes: -ZOLP12.518 PO; +ZOLP12.535 PO
== END ==
LOC: M PLALAB 12:00
PROVIDERS: ATTEND Physical Medicine & Rehabilitation
DX: M47.897 Other spondylosis, lumbosacral region (principal)

== ENCOUNTER → 2024-05-16 | Outpatient (REF) | payer MEDICARE, MEDICAID ==
[~2024-05-16] MED LIST changes: -CRAN400C PO; +CRANBERRY400 MG PO; +ONDA-282 SL; -ONDA4TAB6 SL
[2024-05-16 11:25] LABS: HEMOGLOBIN A1c 7.6 % (4.0-6.0)
== END ==
LOC: M LAB REF 10:22
PROVIDERS: ATTEND Nurse Practitioner Family
DX: E11.9 Type 2 diabetes mellitus without complications (principal)

== ENCOUNTER 2024-08-26 01:18 | Emergency (ER) | payer MEDICARE, MEDICAID ==
[~2024-08-26] VITALS: Ht 175.3 cm; Wt 146.5 kg
[~2024-08-26 01:18] MED LIST changes: -ARIP10TA32 PO; +ARIP10TA63 PO
[2024-08-26 07:45] VITALS: BP 137/92; TEMP 97.3; O2SAT 98
== END 2024-08-26 08:36 | disposition home or self-care (01) ==
LOC: M ED 01:18
DX: M79.604 Pain in right leg (principal); M79.605 Pain in left leg; E11.9 Type 2 diabetes mellitus without complications; M51.379 Other intervertebral disc degeneration, lumbosacral region without mention of lumbar back pain or lower extremity pain; Z79.84 Long term (current) use of oral hypoglycemic drugs; Z79.899 Other long term (current) drug therapy; Z88.0 Allergy status to penicillin; Z88.5 Allergy status to narcotic agent; Z88.8 Allergy status to other drugs, medicaments and biological substances; Z91.040 Latex allergy status

== ENCOUNTER 2024-09-04 10:48 | Inpatient (IN) | payer MEDICARE, MEDICAID ==
[~2024-09-04] VITALS: Ht 167.6 cm; Wt 108.0 kg
[2024-09-04] MEDS: LORazepam 1 MG TAB PO STA (11:34)
[2024-09-04 12:00] LABS: HEMATOCRIT 41.8 % (36.0-47.0); HEMOGLOBIN 13.5 g/dl (12.0-15.5); MEAN CORPUSCULAR HEMOGLOBIN 26.2 pg (27.0-33.0); MEAN CORPUSCULAR HGB CONC 32.3 g/dl (32.0-36.5); MEAN CORPUSCULAR VOLUME 81.2 fl (80.0-96.0); PLATELET COUNT, AUTOMATED 190 10^3/uL (150-450); RED BLOOD COUNT 5.15 10^6/uL (4.00-5.40); WHITE BLOOD COUNT 12.2 10^3/uL (4.0-10.0)
[2024-09-04 12:22] LABS: ETHYL ALCOHOL (ETHANOL) < 0.003 % (0.000-0.010)
[2024-09-04 12:23] LABS: ALBUMIN 3.6 G/DL (3.2-5.2); ALKALINE PHOSPHATASE 105 U/L (46-116); ALT/SGPT 56 U/L (7.0-40); AST/SGOT 38 U/L (<34); BILIRUBIN,DIRECT 0.3 MG/DL (<0.4); BILIRUBIN,TOTAL 0.7 MG/DL (0.3-1.2); BLOOD UREA NITROGEN 13 MG/DL (9-23); CARBON DIOXIDE LEVEL 28 MMOL/L (20-31); CHLORIDE LEVEL 107 MMOL/L (98-107); CREATININE FOR GFR 0.55 MG/DL (0.55-1.30); GLOMERULAR FILTRATION RATE > 60.0 (>58); GLUCOSE, FASTING 146 MG/DL (60-100); HCG, SERUM QUALITATIVE NEGATIVE (NEGATIVE); POTASSIUM SERUM 3.8 MMOL/L (3.5-5.1); SALICYLATE LEVEL < 3.0 MG/DL (<30); SODIUM LEVEL 140 MMOL/L (136-145)
[2024-09-04 13:50] LABS: BARBITURATES URINE NEGATIVE (NEGATIVE); BENZODIAZEPINES URINE NEGATIVE (NEGATIVE); METHADONE URINE NEGATIVE (NEGATIVE); OPIATES URINE NEGATIVE (NEGATIVE); PHENCYCLIDINE URINE NEGATIVE (NEGATIVE)
[2024-09-04 13:52] LABS: AMPHETAMINES LEVEL URINE POSITIVE (NEGATIVE); CANNABINOIDS URINE POSITIVE (NEGATIVE); COCAINE METABOLITE URINE POSITIVE (NEGATIVE)
[2024-09-04] MEDS ORDERED: diphenhydrAMINE 25MG CAP PO PRN (17:55)
[2024-09-04] MEDS ORDERED: LORazepam 1 MG TAB PO PRN (17:55)
[2024-09-04] MEDS ORDERED: ACETAMINOPHEN 325 MG TAB PO PRN (17:55)
[2024-09-04] MEDS ORDERED: OLANZapine ORAL DISINTEGRATING TAB 5MG PO PRN (17:55)
[2024-09-05] MEDS: IBUPROFEN 400MG TAB PO PRN (01:40)
[2024-09-05] MEDS ORDERED: METF-838 PO (02:46)
[2024-09-05] MEDS ORDERED: GABA-1172 PO (02:47)
[2024-09-05] MEDS ORDERED: XALA0.007 OU (02:47)
[2024-09-05] MEDS ORDERED: HOME MED LIST COMPLETE! XX SCH (02:50)
[2024-09-05 06:06] VITALS: BP 116/58; TEMP 97.3; O2SAT 97
[2024-09-05] MEDS ORDERED: hydrOXYzine 50 MG TAB PO PRN (09:05)
[2024-09-05] MEDS ORDERED: cloNIDine 0.2 MG TAB PO PRN (09:05)
[2024-09-05 09:36] VITALS: BP 148/82
[2024-09-05] MEDS: ARIPiprazole 10 MG TAB PO SCH (09:39)
[2024-09-05] MEDS: cloNIDine 0.1MG TABLET PO SCH (09:40)
[2024-09-05] MEDS: GABAPENTIN 300 MG CAP PO SCH (09:40)
[2024-09-05] MEDS: metFORMIN XR 500MG TAB *GLUCOPHAGE XR PO SCH (09:40)
[2024-09-05] MEDS: FLUTICASONE PROP 0.05% NASAL SPRAY 16 GM (FLONASE) NARES SCH (10:38)
[2024-09-05] MEDS: ACETAMINOPHEN 650MG ER TAB (TYLENOL ARTHRITIS) PO PRN (13:26)
[2024-09-05 15:24] VITALS: BP 132/81; TEMP 98.6; O2SAT 98
[2024-09-05] MEDS: ONDANSETRON 4MG ORAL DISINTEGRATING TAB SL PRN (18:15)
[2024-09-05] MEDS: PRAZOSIN 1 MG CAP PO SCH (20:31)
[2024-09-05] MEDS: LATANOPROST 0.005% OPHTH SOLN 2.5 ML OU SCH (20:31)
[2024-09-05] MEDS: ATORVASTATIN 20 MG TAB PO SCH (20:31)
[2024-09-05] MEDS: QUEtiapine FUMARATE 100 MG TAB PO PRN (22:16)
[2024-09-06 06:34] VITALS: BP 119/82; TEMP 97.5; O2SAT 97
[2024-09-06 06:58] LABS: CHOLESTEROL RISK RATIO 2.73 (<5); HDL CHOLESTEROL 47.9 MG/DL (>40); LDL CHOLESTEROL 57.5 MG/DL (<100); NON-HDL-C 83.1 MG/DL
[2024-09-06 14:55] VITALS: BP 166/88; TEMP 97.8; O2SAT 98
[2024-09-06] MEDS: MAALOX 30 ML SUSP *UDC PO PRN (23:37)
[2024-09-07] MEDS: CHLORASEPTIC SPRAY MT PRN (03:45)
[2024-09-07 06:06] VITALS: BP 141/89; TEMP 97.2; O2SAT 100
[2024-09-07 08:10] VITALS: BP 129/80
[2024-09-07 08:12] VITALS: BP 129/80
== END 2024-09-07 11:47 | disposition home or self-care (01) | DRG 885 ==
LOC: M ED 10:48 → EDBD 10:48 → M ED INP 17:55 → M PSY 20:23
PROVIDERS: ADMIT Psychiatry & Neurology Psychiatry; ATTEND Psychiatry & Neurology Psychiatry
DX: F29 Unspecified psychosis not due to a substance or known physiological condition (principal); I80.201 Phlebitis and thrombophlebitis of unspecified deep vessels of right lower extremity; F31.9 Bipolar disorder, unspecified; F43.10 Post-traumatic stress disorder, unspecified; F12.10 Cannabis abuse, uncomplicated; F15.159 Other stimulant abuse with stimulant-induced psychotic disorder, unspecified; R60.0 Localized edema; I87.2 Venous insufficiency (chronic) (peripheral); K75.81 Nonalcoholic steatohepatitis (NASH); M51.26 Other intervertebral disc displacement, lumbar region; E78.5 Hyperlipidemia, unspecified; E66.9 Obesity, unspecified; Z79.899 Other long term (current) drug therapy; Z88.0 Allergy status to penicillin; Z88.5 Allergy status to narcotic agent; Z88.8 Allergy status to other drugs, medicaments and biological substances; Z91.040 Latex allergy status

== ENCOUNTER 2024-09-12 01:22 | Emergency (ER) | payer MEDICARE, MEDICAID ==
[~2024-09-12] VITALS: Ht 175.3 cm; Wt 148.6 kg
[~2024-09-12 01:22] MED LIST changes: -NAPR-837 PO
[2024-09-12 01:28] VITALS: TEMP 97.1
[2024-09-12 02:33] LABS: BASO % 0.4 % (0.0-1.0); EOS # 0.2 10^3/uL (0.0-0.5); EOS % 2.8 % (0.0-3.0); HEMATOCRIT 39.5 % (36.0-47.0); HEMOGLOBIN 12.8 g/dl (12.0-15.5); LYMPH # 2.1 10^3/uL (1.5-5.0); LYMPH % 29.2 % (24.0-44.0); MEAN CORPUSCULAR HEMOGLOBIN 26.3 pg (27.0-33.0); MEAN CORPUSCULAR HGB CONC 32.4 g/dl (32.0-36.5); MEAN CORPUSCULAR VOLUME 81.3 fl (80.0-96.0); MONO # 0.6 10^3/uL (0.0-0.8); MONO % 8.7 % (2.0-8.0); NEUTROPHILS # 4.2 10^3/uL (1.5-8.5); NEUTROPHILS % 58.3 % (36.0-66.0); PLATELET COUNT, AUTOMATED 195 10^3/uL (150-450); RED BLOOD COUNT 4.86 10^6/uL (4.00-5.40); WHITE BLOOD COUNT 7.1 10^3/uL (4.0-10.0)
[2024-09-12 02:56] LABS: BLOOD UREA NITROGEN 16 MG/DL (9-23); CALCIUM LEVEL 9.3 MG/DL (8.5-10.1); CARBON DIOXIDE LEVEL 28 MMOL/L (20-31); CHLORIDE LEVEL 106 MMOL/L (98-107); CREATININE FOR GFR 0.66 MG/DL (0.55-1.30); GLOMERULAR FILTRATION RATE > 60.0 (>58); GLUCOSE, FASTING 163 MG/DL (60-100); POTASSIUM SERUM 3.7 MMOL/L (3.5-5.1); SODIUM LEVEL 140 MMOL/L (136-145)
[2024-09-12 06:00] VITALS: BP 133/70
[2024-09-12] MEDS: NAPROXEN 250 MG TAB PO ONE (06:37)
[2024-09-12] MEDS: ACETAMINOPHEN 325 MG TAB PO ONE (06:37)
[2024-09-12] MEDS ORDERED: NAPR-837 PO (06:57)
[2024-09-12 07:05] VITALS: O2SAT 98
[2024-09-13 18:33] LABS: HIV 1&2 SCREEN NEGATIVE (NEGATIVE)
== END 2024-09-12 07:27 | disposition home or self-care (01) ==
LOC: M ED 01:22
DX: E11.9 Type 2 diabetes mellitus without complications (principal); E66.01 Morbid (severe) obesity due to excess calories; E55.9 Vitamin D deficiency, unspecified; I83.813 Varicose veins of bilateral lower extremities with pain; I87.303 Chronic venous hypertension (idiopathic) without complications of bilateral lower extremity; L97.212 Non-pressure chronic ulcer of right calf with fat layer exposed; E11.40 Type 2 diabetes mellitus with diabetic neuropathy, unspecified; K21.9 Gastro-esophageal reflux disease without esophagitis; F31.9 Bipolar disorder, unspecified; F43.10 Post-traumatic stress disorder, unspecified; Z87.891 Personal history of nicotine dependence; F14.10 Cocaine abuse, uncomplicated; F12.10 Cannabis abuse, uncomplicated; Z79.899 Other long term (current) drug therapy; Z88.0 Allergy status to penicillin; Z88.5 Allergy status to narcotic agent; Z88.8 Allergy status to other drugs, medicaments and biological substances; Z91.040 Latex allergy status

== ENCOUNTER → 2024-09-12 | Outpatient (REF) | payer MEDICARE, MEDICAID ==
[~2024-09-12] MED LIST changes: +GABA-1172 PO; +METF-838 PO; +NAPR-837 PO; +XALA0.007 OU
[2024-09-12 14:23] LABS: ALBUMIN 3.5 G/DL (3.2-5.2); ALKALINE PHOSPHATASE 89 U/L (35-104); ALT/SGPT 66 U/L (7.0-40); AST/SGOT 34 U/L (<34); BILIRUBIN,TOTAL 0.3 MG/DL (0.3-1.2); BLOOD UREA NITROGEN 17 MG/DL (9-23); CALCIUM LEVEL 9.4 MG/DL (8.5-10.1); CARBON DIOXIDE LEVEL 30 MMOL/L (20-31); CHLORIDE LEVEL 106 MMOL/L (98-107); CHOLESTEROL LEVEL 142 MG/DL (<200); CHOLESTEROL RISK RATIO 2.33 (<5); CREATININE FOR GFR 0.59 MG/DL (0.55-1.30); GLOMERULAR FILTRATION RATE > 60.0 (>58); GLUCOSE, FASTING 136 MG/DL (60-100); HDL CHOLESTEROL 60.8 MG/DL (>40); LDL CHOLESTEROL 66.2 MG/DL (<100); MAGNESIUM LEVEL 1.8 MG/DL (1.8-2.4); NON-HDL-C 81.2 MG/DL; POTASSIUM SERUM 4.3 MMOL/L (3.5-5.1); SODIUM LEVEL 140 MMOL/L (136-145); TOTAL PROTEIN 6.5 G/DL (5.7-8.2); TRIGLYCERIDES LEVEL 75 MG/DL (<150)
[2024-09-12 14:26] LABS: TOTAL 25(OH) VITAMIN D 55.4 NG/ML (20.0-100.0)
[2024-09-12 14:36] LABS: BASO # 0.1 10^3/uL (0.0-0.2); BASO % 0.8 % (0.0-1.0); EOS # 0.2 10^3/uL (0.0-0.5); EOS % 2.6 % (0.0-3.0); HEMATOCRIT 39.9 % (36.0-47.0); HEMOGLOBIN 12.8 g/dl (12.0-15.5); HEMOGLOBIN A1c 8.1 % (4.0-6.0); LYMPH # 1.8 10^3/uL (1.5-5.0); LYMPH % 26.4 % (24.0-44.0); MEAN CORPUSCULAR HGB CONC 32.1 g/dl (32.0-36.5); MEAN CORPUSCULAR VOLUME 81.1 fl (80.0-96.0); MONO # 0.6 10^3/uL (0.0-0.8); MONO % 8.6 % (2.0-8.0); PLATELET COUNT, AUTOMATED 209 10^3/uL (150-450); RED BLOOD COUNT 4.92 10^6/uL (4.00-5.40); WHITE BLOOD COUNT 6.6 10^3/uL (4.0-10.0)
== END ==
LOC: M LAB REF 13:28
PROVIDERS: ATTEND Nurse Practitioner Family
DX: E11.9 Type 2 diabetes mellitus without complications (principal); E66.01 Morbid (severe) obesity due to excess calories; E55.9 Vitamin D deficiency, unspecified

== ENCOUNTER → 2024-09-27 | Outpatient (REF) | payer MEDICARE ==
[~2024-09-27] MED LIST changes: +NAPR-837 PO
[2024-09-27 20:12] LABS: Trichomonas vaginalis (AMP) NOT DETECTED (NEGATIVE)
[2024-09-27 20:36] LABS: GC DNA AMPLIFICATION NEGATIVE (NEGATIVE)
[2024-10-01 07:01] LABS: HPV APTIMA Detected (Not Detected)
== END ==
LOC: M PLALAB 13:19
PROVIDERS: ATTEND Advanced Practice Midwife
DX: Z12.4 Encounter for screening for malignant neoplasm of cervix (principal); R87.610 Atypical squamous cells of undetermined significance on cytologic smear of cervix (ASC-US); Z11.3 Encounter for screening for infections with a predominantly sexual mode of transmission; Z72.89 Other problems related to lifestyle
CPT/HCPCS: 87624; 87661; 87810; 87850; G0123

== ENCOUNTER → 2024-09-27 | Outpatient (CLI) | payer MEDICARE, MEDICAID | LOC: M WHC 13:18 | PROVIDERS: ATTEND Advanced Practice Midwife | DX: Z12.31 Encounter for screening mammogram for malignant neoplasm of breast (principal); R92.313 Mammographic fatty tissue density, bilateral breasts ==

== ENCOUNTER 2025-01-09 14:08 | Outpatient (RCR) | payer MEDICARE, MEDICAID | END 2025-01-11 | LOC: M PT 14:08 | PROVIDERS: ATTEND Physician Assistant | DX: M17.0 Bilateral primary osteoarthritis of knee (principal); M22.2X1 Patellofemoral disorders, right knee; M22.2X2 Patellofemoral disorders, left knee ==

== ENCOUNTER → 2025-01-18 | Outpatient (REF) | payer MEDICARE | LOC: M PLALAB 12:22 | PROVIDERS: ATTEND Advanced Practice Midwife | DX: R87.610 Atypical squamous cells of undetermined significance on cytologic smear of cervix (ASC-US) (principal); R87.810 Cervical high risk human papillomavirus (HPV) DNA test positive ==

== ENCOUNTER 2025-02-05 14:02 | Outpatient (RCR) | payer MEDICARE, MEDICAID | END 2025-02-11 | LOC: M PT 14:02 | PROVIDERS: ATTEND Physician Assistant | DX: M17.0 Bilateral primary osteoarthritis of knee (principal); M22.2X1 Patellofemoral disorders, right knee; M22.2X2 Patellofemoral disorders, left knee ==

== ENCOUNTER 2025-03-12 12:31 | Outpatient (RCR) | payer MEDICARE, MEDICAID ==
[~2025-03-12 12:31] MED LIST changes: -AMBI10TA PO; +ZOLP-533 PO
== END 2025-03-13 ==
LOC: M PT 12:31
PROVIDERS: ATTEND Physician Assistant
DX: M17.0 Bilateral primary osteoarthritis of knee (principal); M22.2X1 Patellofemoral disorders, right knee; M22.2X2 Patellofemoral disorders, left knee

== ENCOUNTER → 2025-03-13 | Outpatient (REF) | payer MEDICARE, MEDICAID ==
[2025-03-13 13:57] LABS: CREATININE, URINE 93.8 MG/DL; MAU/CREAT RATIO 8.5 MCG/MG (0.0-30.0)
== END ==
LOC: M LAB REF 12:04
PROVIDERS: ATTEND Nurse Practitioner Family
DX: E11.9 Type 2 diabetes mellitus without complications (principal)

== ENCOUNTER → 2025-03-26 | Outpatient (REF) | payer MEDICARE, MEDICAID ==
[~2025-03-26] MED LIST changes: -ALPH600C PO; +ALPH600C2 PO
== END ==
LOC: M LAB REF 15:01
PROVIDERS: ATTEND Nurse Practitioner Family
DX: B82.0 Intestinal helminthiasis, unspecified (principal)

== ENCOUNTER 2025-05-23 03:43 | Emergency (ER) | payer MEDICARE, MEDICAID ==
[~2025-05-23] VITALS: Ht 172.7 cm; Wt 140.9 kg
[~2025-05-23 03:43] MED LIST changes: +CLIN-250 PO; +FARX1TAB5 PO; +OLAN1TAB70 PO; +TRAM1TAB42 PO
[2025-05-23 04:00] VITALS: BP 125/69; TEMP 97.6; O2SAT 97
[2025-05-23] MEDS ORDERED: KETO-204 PO (19:33)
== END 2025-05-23 07:00 | disposition left against medical advice (07) ==
LOC: M ED 03:43
DX: Z53.21 Procedure and treatment not carried out due to patient leaving prior to being seen by health care provider (principal)

== ENCOUNTER 2025-05-29 04:52 | Emergency (ER) | payer MEDICARE, MEDICAID ==
[~2025-05-29] VITALS: Ht 175.3 cm; Wt 143.7 kg
[~2025-05-29 04:52] MED LIST changes: +KETO-204 PO
[2025-05-29 05:03] VITALS: BP 127/58; TEMP 97.9; O2SAT 99
== END 2025-05-29 10:30 | disposition left against medical advice (07) ==
LOC: M ED 04:52 → EDBD 04:52 → M ED 10:30
DX: Z53.21 Procedure and treatment not carried out due to patient leaving prior to being seen by health care provider (principal)

== ENCOUNTER → 2025-07-24 | Outpatient (REF) | payer MEDICARE, MEDICAID ==
[~2025-07-24] MED LIST changes: +ACET-1515 PO; -ACET650T15 PO; -DIPH50CA PO; +DIPH50CA31 PO
[2025-07-24 16:50] LABS: Trichomonas vaginalis (AMP) NOT DETECTED (NEGATIVE)
[2025-07-24 17:14] LABS: GC DNA AMPLIFICATION NEGATIVE (NEGATIVE)
== END ==
LOC: M SFHCWAGY 15:09
PROVIDERS: ATTEND Advanced Practice Midwife
DX: R87.610 Atypical squamous cells of undetermined significance on cytologic smear of cervix (ASC-US) (principal); Z11.3 Encounter for screening for infections with a predominantly sexual mode of transmission

== ENCOUNTER → 2025-08-14 | Outpatient (REF) | payer MEDICARE, MEDICAID ==
[2025-08-14 12:45] LABS: ALT/SGPT 25 U/L (7.0-40); AST/SGOT 16 U/L (<34); CALCIUM LEVEL 8.8 MG/DL (8.5-10.1); CARBON DIOXIDE LEVEL 27 MMOL/L (20-31); CHLORIDE LEVEL 103 MMOL/L (98-107); CHOLESTEROL LEVEL 124 MG/DL (<200); CHOLESTEROL RISK RATIO 2.98 (<5); CREATININE FOR GFR 0.65 MG/DL (0.55-1.30); GLOMERULAR FILTRATION RATE > 90.0 (>58); LDL CHOLESTEROL 58.1 MG/DL (<100); NON-HDL-C 82.5 MG/DL; POTASSIUM SERUM 3.9 MMOL/L (3.5-5.1); SODIUM LEVEL 137 MMOL/L (136-145); TRIGLYCERIDES LEVEL 122 MG/DL (<150)
[2025-08-14 12:59] LABS: ESTIMATED AVERAGE GLUCOSE 148.0 MG/DL (60-110)
== END ==
LOC: M LAB REF 11:44
PROVIDERS: ATTEND Student in an Organized Health Care Education/Training Program
DX: E11.9 Type 2 diabetes mellitus without complications (principal); Z68.42 Body mass index [BMI] 45.0-49.9, adult

== ENCOUNTER → 2025-09-03 | Outpatient (REF) | payer MEDICARE, MEDICAID ==
[2025-09-03 16:46] LABS: BASO # 0.1 10^3/uL (0.0-0.2); BASO % 0.6 % (0.0-1.0); EOS # 0.1 10^3/uL (0.0-0.5); EOS % 1.5 % (0.0-3.0); LYMPH # 2.1 10^3/uL (1.5-5.0); LYMPH % 22.6 % (24.0-44.0); MONO # 0.6 10^3/uL (0.0-0.8); MONO % 6.5 % (2.0-8.0); NEUTROPHILS # 6.4 10^3/uL (1.5-8.5); NEUTROPHILS % 68.6 % (36.0-66.0); PLATELET COUNT, AUTOMATED 214 10^3/uL (150-450)
[2025-09-03 17:07] LABS: CHOLESTEROL LEVEL 123.0 MG/DL (<200); CHOLESTEROL RISK RATIO 2.75 (<5); LDL CHOLESTEROL 57.6 MG/DL (<100); NON-HDL-C 78.4 MG/DL; TRIGLYCERIDES LEVEL 104.0 MG/DL (<150)
[2025-09-03 17:08] LABS: FREE T4 1.26 NG/DL (0.89-1.76); IRON (FE) 64.0 UG/DL (50-170)
== END ==
LOC: M LAB REF 16:15
PROVIDERS: ATTEND Student in an Organized Health Care Education/Training Program
DX: I95.9 Hypotension, unspecified (principal); Z68.41 Body mass index [BMI] 40.0-44.9, adult; R00.2 Palpitations; Z79.899 Other long term (current) drug therapy; D64.9 Anemia, unspecified

== ENCOUNTER → 2025-09-03 | Outpatient (REF) | payer MEDICARE, MEDICAID | LOC: M LAB REF 12:01 | PROVIDERS: ATTEND Student in an Organized Health Care Education/Training Program | DX: I95.9 Hypotension, unspecified (principal) ==

== ENCOUNTER → 2025-09-10 | Outpatient (CLI) | payer MEDICARE, MEDICAID | LOC: M EKG 11:36 | PROVIDERS: ATTEND Student in an Organized Health Care Education/Training Program | DX: R00.2 Palpitations (principal) ==

== ENCOUNTER → 2025-10-03 | Outpatient (CLI) | payer MEDICARE, MEDICAID | LOC: M WHC 12:47 | PROVIDERS: ATTEND Advanced Practice Midwife | DX: Z12.31 Encounter for screening mammogram for malignant neoplasm of breast (principal); R92.323 Mammographic fibroglandular density, bilateral breasts ==

== ENCOUNTER → 2025-10-03 | Outpatient (REF) | payer MEDICARE ==
[2025-10-05 14:23] LABS: HPV APTIMA Detected (Not Detected)
== END ==
LOC: M PLALAB 11:59
PROVIDERS: ATTEND Advanced Practice Midwife
DX: Z12.4 Encounter for screening for malignant neoplasm of cervix (principal); R87.610 Atypical squamous cells of undetermined significance on cytologic smear of cervix (ASC-US)
CPT/HCPCS: 87624; G0123

== ENCOUNTER → 2025-10-09 | Outpatient (CLI) | payer MEDICARE, MEDICAID | LOC: M RAD 09:50 | PROVIDERS: ATTEND Surgery | DX: I83.893 Varicose veins of bilateral lower extremities with other complications (principal) ==

== ENCOUNTER → 2025-10-31 | Outpatient (CLI) | payer MEDICARE, MEDICAID | LOC: M PLAIMG 07:49 | PROVIDERS: ATTEND Student in an Organized Health Care Education/Training Program | DX: I95.9 Hypotension, unspecified (principal) ==

== ENCOUNTER 2025-11-09 16:49 | Emergency (ER) | payer MEDICARE, MEDICAID ==
[~2025-11-09] VITALS: Ht 175.3 cm; Wt 128.7 kg
[2025-11-09] MEDS: TETANUS/DIPHTH/ACEL. PERTUSSIS 0.5 ML SYR IM ONE (19:25)
[2025-11-09 19:26] VITALS: BP 131/71; TEMP 97.6; O2SAT 100
[2025-11-14] MEDS ORDERED: TIMO0.5S20 OU (19:08)
== END 2025-11-09 19:32 | disposition home or self-care (01) ==
LOC: M ED 16:49
DX: S80.01XA Contusion of right knee, initial encounter (principal); M79.671 Pain in right foot; M17.11 Unilateral primary osteoarthritis, right knee; W19.XXXA Unspecified fall, initial encounter; Y92.410 Unspecified street and highway as the place of occurrence of the external cause; Y93.9 Activity, unspecified; Y99.9 Unspecified external cause status; E11.9 Type 2 diabetes mellitus without complications; F31.9 Bipolar disorder, unspecified; R56.9 Unspecified convulsions; R42 Dizziness and giddiness; K21.9 Gastro-esophageal reflux disease without esophagitis; Z79.84 Long term (current) use of oral hypoglycemic drugs; Z79.899 Other long term (current) drug therapy; Z88.0 Allergy status to penicillin; Z88.5 Allergy status to narcotic agent; Z88.8 Allergy status to other drugs, medicaments and biological substances; Z91.040 Latex allergy status